=== PATIENT | female | born 2000 | race Caucasian/White ===

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

== ENCOUNTER 2022-02-08 17:21 | Inpatient (IN) ==
[2022-02-08] MEDS ORDERED: SODIUM CHLORIDE 0.9% 1000ML 2,000 ML IV ONE (17:54)
[2022-02-08] MEDS ORDERED: PROMETHAZINE 12.5 MG/50.5 ML BAG IV STA (17:54)
[2022-02-08] MEDS ORDERED: SODIUM CHLORIDE 0.9% 1000ML 1,000 ML IV STA (17:54)
--- NOTE | 2022-02-08 17:59 | Emergency Department Note ---
History of Present Illness General Chief complaint: Illness Stated complaint: dizzy, vomiting, feels overheated, weak Time Seen by Provider: 02/08/22 17:43 Source: patient and family (Boyfriend is at the bedside) Mode of arrival: ambulatory Limitations: no limitations History of Present Illness Maximum Pain Intensity: 8 This patient is a 21-year-old female comes in after throwing up since last night she is unable to hold anything down denies abdominal pain she says she started with a migraine which was typical for her no fever. She feels weak all over but no focal numbness weakness no chest pain or shortness of breath no vaginal bleed or discharge denies no dysuria hematuria. No chest pain or cough or shortness of breath. She says she has been here before for this and when I looked at her last visit she required multiple antiemetics and IV fluids. Home Medications Medication Instructions Recorded Confirmed Type venlafaxine 150 mg 150 mg PO HS 02/11/19 02/08/22 History capsule,extended release 24 hr lamotrigine 200 mg tablet 200 mg PO HS 03/04/21 02/08/22 History quetiapine 200 mg tablet 200 mg PO HS 07/17/21 02/08/22 History riboflavin (vitamin B2) 400 mg 400 mg PO DAILY #30 tab 07/26/21 02/08/22 Rx tablet ferrous sulfate 325 mg (65 mg 325 mg PO DAILY 08/05/21 02/08/22 History iron) tablet (Iron (ferrous sulfate)) ondansetron 4 mg disintegrating 4 mg PO Q6H PRN #10 tab 11/29/21 02/08/22 Rx tablet albuterol sulfate 90 mcg/actuation 2 puff INHALATION Q4H PRN #8.5 g 12/05/21 02/08/22 Rx aerosol inhaler etonogestrel 68 mg subdermal 68 mg SUBDERMAL CONTINOUS 02/08/22 02/08/22 History implant (Nexplanon) topiramate 25 mg tablet 50 mg PO DAILY 02/08/22 02/08/22 History venlafaxine 37.5 mg 37.5 mg PO HS 02/08/22 02/08/22 History capsule,extended release 24 hr Allergies Allergy/AdvReac Type Severity Reaction Status Date / Time bee venom protein (honey bee) Allergy Severe Anaphylaxis Verified 02/08/22 18:22 Past Med/Surg History Medical History Abdominal pain Anxiety Asthma Constipation Constipation Depression Eczema Hemangioma Iron deficiency anemia Leukocytosis Metabolic acidosis Microscopic hematuria Periapical abscess of tooth with fistula Vomiting Surgical History No significant past surgical history Family History Mother Cancer Anxiety disorder Father Anxiety disorder Social History Smoking Status: Never smoker Second Hand Exposure: No; Hx Alcohol Use: No Hx Substance Use: No Preferred Language: Luxembourgish Communication Ability: Effective Patient Flow Coordinator Required: No Beliefs That Will Affect Care: None marital status: Single Current Living Situation: Significant Other Feels Safe at Home: Yes Assistive Devices: None Review of Systems A total of 10 systems reviewed and were otherwise negative Physical Exam Vital Signs Vital Signs - 24 hr 02/08/22 17:23 02/08/22 17:58 02/08/22 20:00 Temperature 36.4 C L 37 C Temperature Source Oral Oral Pulse Rate 108 H Pulse Rate [Right Finger] 88 Pulse Rhythm [Right Finger] Regular Pulse Strength [Right Finger] Normal Respiratory Rate 20 20 18 Respiratory Effort / Characteristics Non-Labored Spontaneous Non-Labored Non-Labored Spontaneous Respiratory Depth Normal Normal Normal Respiratory Pattern Regular Regular Blood Pressure 118/80 Blood Pressure [Right Arm] 124/75 121/87 Blood Pressure Mean 92 Blood Pressure Mean [Right Arm] 91 98 Blood Pressure Position [Right Arm] Lying Pulse Oximetry 98 100 97 Oxygen Delivery Method Room Air Room Air Room Air Sepsis Recent Fever Within 48 Hours No Sepsis New/Unexplained Change in Mental Status N/A Sepsis Action Taken by Nursing No Action Required 02/08/22 22:00 Temperature Temperature Source Pulse Rate Pulse Rate [Right Finger] 110 H Pulse Rhythm [Right Finger] Regular Pulse Strength [Right Finger] Normal Respiratory Rate 18 Respiratory Effort / Characteristics Non-Labored Spontaneous Respiratory Depth Normal Respiratory Pattern Regular Blood Pressure Blood Pressure [Right Arm] 126/86 Blood Pressure Mean Blood Pressure Mean [Right Arm] 99 Blood Pressure Position [Right Arm] Lying Pulse Oximetry 98 Oxygen Delivery Method Room Air Sepsis Recent Fever Within 48 Hours Sepsis New/Unexplained Change in Mental Status Sepsis Action Taken by Nursing General: Well developed well nourished young female who is holding emesis bag she appears somewhat pale and is complained of feeling nauseated. In no acute distress, breathing comfortably on room air. Normal speech HEENT: Normal cephalic atraumatic. Pupils are equal round and reactive to light. Extraocular movements are intact. Oropharynx is pink with moist mucous membranes. No swelling of the mouth lips or tongue. Neck: Supple with a midline trachea. No meningeal signs or stiffness, no JVD or bruits. No Stridor. Chest: Clear to auscultation bilaterally. No wheezes or rhonchi. No increased work of breathing. Heart: Regular rate and rhythm without murmurs or gallops. Abdomen: Soft nontender, nondistended without rebound guarding or rigidity. Extremities: No cyanosis clubbing or edema. No calf tenderness or assymetry Spine/Back. Non tender to palpation. No CVA tenderness Skin: Good turgor without rashes. Neurologic exam: Cranial nerves two through 12 are intact. Motor and sensation are intact and symmetrical throughout. Course Administered Medications Potassium Chloride (K Eduardo / Wtr) 10 meq in 100 mls @ 100 mls/hr IV Q1H CECY Stop: 02/09/22 00:14 Last Admin: 02/08/22 22:15 Dose: 100 mls/hr Documented by: [id number] Discontinued Medications Sodium Chloride (Nss 1000ml) 1,000 mls @ 999 mls/hr IV .Q1H1M STA Stop: 02/08/22 18:54 Last Admin: 02/08/22 18:50 Dose: Not Given Documented by: [id number] Sodium Chloride (Nss 1000ml) 2,000 mls @ 999 mls/hr IV .Q2H1M ONE Stop: 02/08/22 19:54 Last Infusion: 02/08/22 20:17 Dose: 0 mls/hr Documented by: [id number] Admin: 02/08/22 18:01 Dose: 999 mls/hr Documented by: [id number] Promethazine HCl (Phenergan) 12.5 mg in 50.5 mls @ 202 mls/hr IV NOW STA Stop: 02/08/22 18:08 Last Infusion: 02/08/22 18:35 Dose: 0 mls/hr Documented by: [id number] Admin: 02/08/22 18:09 Dose: 202 mls/hr Documented by: [id number] Sodium Chloride (Nss 1000ml) 1,000 mls @ 999 mls/hr IV .Q1H1M ONE Stop: 02/08/22 21:24 Last Infusion: 02/08/22 22:06 Dose: 0 mls/hr Documented by: [id number] Admin: 02/08/22 20:30 Dose: 999 mls/hr Documented by: [id number] Ketorolac Tromethamine (Ketorolac Tromethamine 15 Mg/Ml Vial) 15 mg IV NOW STA Stop: 02/08/22 22:01 Last Admin: 02/08/22 22:14 Dose: 15 mg Documented by: [id number] Metoclopramide HCl (Metoclopramide Hcl Inj 5 Mg/Ml 2 Ml Vial) 10 mg IV NOW STA Stop: 02/08/22 20:25 Last Admin: 02/08/22 20:30 Dose: 10 mg Documented by: [id number] Ondansetron HCl (Ondansetron Inj 2 Mg/Ml 2 Ml Vial) 4 mg IV NOW STA Stop: 02/08/22 18:02 Last Admin: 02/08/22 18:08 Dose: 4 mg Documented by: [id number] Ondansetron HCl (Ondansetron Inj 2 Mg/Ml 2 Ml Vial) 4 mg IV NOW STA Stop: 02/08/22 18:57 Last Admin: 02/08/22 19:33 Dose: 4 mg Documented by: [id number] Medical Decision Making Differential Diagnosis Dehydration, electrolyte or metabolic abnormality, infection, , neurologic disease, anemia Medical Records Attestation: I reviewed the patient's medical records. Home Medications Current Medication List: was personally reviewed by me Laboratory Data Attestation: I reviewed the patient's lab results. Result diagrams: 02/08/22 18:00 02/08/22 18:00 Lab Results 02/08/22 02/08/22 02/08/22 Range/Units 18:00 18:00 18:00 WBC 12.75 H (4.8-10.8) K/uL RBC 5.40 (4.2-5.4) M/uL Hgb 13.7 (12.0-16.0) g/dL Hct 40.2 (37-47) % MCV 74.4 L (80-100) fL MCH 25.4 (25-34) pg MCHC 34.1 (32-36) g/dL RDW Std Deviation 37.7 (36.4-46.3) fL RDW Coeff of Indira 13.9 (11.5-14.5) % Plt Count 271 (130-400) K/uL MPV 9.3 (7.4-10.4) fL Immature Gran % (Auto) 0.2 % Neut % (Auto) 84.2 % Lymph % (Auto) 9.1 % [place] % (Auto) 6.3 % Eos % (Auto) 0.2 % Baso % (Auto) 0.0 % Neut # (Auto) 10.74 H (1.4-6.5) K/uL Lymph # (Auto) 1.16 L (1.2-3.4) K/uL [place] # (Auto) 0.80 H (0.11-0.59) K/uL Eos # (Auto) 0.02 (0-0.5) K/uL Baso # (Auto) 0.00 (0-0.2) K/uL Immature Gran # (Auto) 0.03 H (0.00-0.02) K/uL Microcytosis Present Sodium 139 (136-145) mmol/L Potassium 3.4 L (3.5-5.1) mmol/L Chloride 106 (98-107) mmol/L Carbon Dioxide 17 L (21-32) mmol/L Anion Gap 16 H (3-11) BUN 10 (6-23) mg/dl Creatinine 1.00 (0.6-1.2) mg/dl Est Cr Clr Drug Dosing 80.1 ml/min Est GFR ( Amer) 94.6 ml/min Est GFR (Non-Af Amer) 81.6 ml/min BUN/Creatinine Ratio 10.0 (10-20) Glucose 150 H (70-99(Fasting)) mg/dl Calcium 10.5 H (8.5-10.1) mg/dl Magnesium 2.1 (1.7-2.4) mg/dl Total Bilirubin 0.5 (0.2-1.0) mg/dl AST 13 (13-39) U/L ALT 13 (7-52) U/L Alkaline Phosphatase 92 (34-104) U/L Total Protein 8.4 H (6.0-8.3) gm/dl Albumin 5.0 (3.4-5.0) gm/dl Globulin 3.4 (2.5-4.0) gm/dl Albumin/Globulin Ratio 1.5 (0.9-2) Lipase 11 (11-82) U/L HCG, Qual (Negative) Urine Color Urine Appearance (Clear) Urine pH (4.5-7.5) Ur Specific [place] (1.000-1.030) Urine Protein (Negative) Urine Glucose (UA) (Negative) Urine Ketones (Negative) Urine Blood (Negative) Urine Nitrite (Negative) Urine Bilirubin (Negative) Urine Urobilinogen (Negative) Ur Leukocyte Esterase (Negative) Urine WBC (Auto) (0-5) /hpf Urine RBC (Auto) (0-4) /hpf U Hyaline Cast (Auto) (0-5) /lpf U Epithel Cells (Auto) (0-5) /lpf Urine Bacteria (Auto) (Negative) 02/08/22 02/08/22 Range/Units 18:28 21:05 WBC (4.8-10.8) K/uL RBC (4.2-5.4) M/uL Hgb (12.0-16.0) g/dL Hct (37-47) % MCV (80-100) fL MCH (25-34) pg MCHC (32-36) g/dL RDW Std Deviation (36.4-46.3) fL RDW Coeff of Indira (11.5-14.5) % Plt Count (130-400) K/uL MPV (7.4-10.4) fL Immature Gran % (Auto) % Neut % (Auto) % Lymph % (Auto) % [place] % (Auto) % Eos % (Auto) % Baso % (Auto) % Neut # (Auto) (1.4-6.5) K/uL Lymph # (Auto) (1.2-3.4) K/uL [place] # (Auto) (0.11-0.59) K/uL Eos # (Auto) (0-0.5) K/uL Baso # (Auto) (0-0.2) K/uL Immature Gran # (Auto) (0.00-0.02) K/uL Microcytosis Sodium (136-145) mmol/L Potassium (3.5-5.1) mmol/L Chloride (98-107) mmol/L Carbon Dioxide (21-32) mmol/L Anion Gap (3-11) BUN (6-23) mg/dl Creatinine (0.6-1.2) mg/dl Est Cr Clr Drug Dosing ml/min Est GFR ( Amer) ml/min Est GFR (Non-Af Amer) ml/min BUN/Creatinine Ratio (10-20) Glucose (70-99(Fasting)) mg/dl Calcium (8.5-10.1) mg/dl Magnesium (1.7-2.4) mg/dl Total Bilirubin (0.2-1.0) mg/dl AST (13-39) U/L ALT (7-52) U/L Alkaline Phosphatase (34-104) U/L Total Protein (6.0-8.3) gm/dl Albumin (3.4-5.0) gm/dl Globulin (2.5-4.0) gm/dl Albumin/Globulin Ratio (0.9-2) Lipase (11-82) U/L HCG, Qual Negative (Negative) Urine Color Yellow Urine Appearance Cloudy A (Clear) Urine pH 8.5 H (4.5-7.5) Ur Specific [place] 1.027 (1.000-1.030) Urine Protein Trace H (Negative) Urine Glucose (UA) Negative (Negative) Urine Ketones 4+ H (Negative) Urine Blood Trace H (Negative) Urine Nitrite Negative (Negative) Urine Bilirubin Negative (Negative) Urine Urobilinogen Negative (Negative) Ur Leukocyte Esterase Negative (Negative) Urine WBC (Auto) 1-5 (0-5) /hpf Urine RBC (Auto) 10-30 H (0-4) /hpf U Hyaline Cast (Auto) 1-5 (0-5) /lpf U Epithel Cells (Auto) >30 H (0-5) /lpf Urine Bacteria (Auto) Negative (Negative) MDM Narrative This patient comes in as described above. She was placed on a cold meat chef and a 4 she has had multiple vomiting episodes she is mildly tachyardiac and a ppears mildly pale. We establish an IV and was given 2 L IV normal saline. I reviewed her records and she did require multiple antiemetics last time I did order Phenergan 12.5 mg IV and also Zofran 4 mg IV. She was reassessed frequently. She was still having symptoms so I gave her another 4 mg Zofran IV while she was getting hydrated. White count is mildly elevated at 12 she has no significant anemia. Her CO2 is a little low at 17. Blood was my elevated at 150 but it is nonfasting. She has no other significant electrolyte or metabolic abnormalities. Her test was negative. Her potassium was mildly low low at 3.4 magnesium was normal. Despite multiple medications she still had vomiting. I did also order capsaicin as she did admit to smoking marijuana several times a day and there may be a hyperemesis cannabis component. She is dehydrated and cannot keep fluids down despite multiple IV medications and fluid boluses and I have consulted Dr. Hu to see her for admission/observation. Continuous cardiac monitoring: Orders placed in EMR for continuous cardiac monitoring. Upon my interpretation she was noted to be in normal sinus rhythm with a rate of 85 Impression & Plan Dehydration, Vomiting, Cannabinoid hyperemesis syndrome, Not currently Discharge Plan Visit Data Chief Complaint: Illness Stated Complaint: dizzy, vomiting, feels overheated, weak ED Provider: Tim Conde Discharge Problem: Dehydration, Vomiting, Cannabinoid hyperemesis syndrome, Not currently Forms Stand Alone Forms: My [facility] Prescriptions Prescriptions: No Action ferrous sulfate [Iron (ferrous sulfate)] 325 mg (65 mg iron) tablet 325 mg PO DAILY RF: 0 riboflavin (vitamin B2) 400 mg tablet 400 mg PO DAILY Qty: 30 RF: 11 albuterol sulfate 90 mcg/actuation HFA aerosol inhaler 2 puff inhalation Q4H PRN (Reason: cough) Qty: 8.5 RF: 0 venlafaxine 150 mg capsule,extended release 24hr 150 mg PO HS RF: 0 lamotrigine 200 mg tablet 200 mg PO HS RF: 0 quetiapine 200 mg tablet 200 mg PO HS RF: 0 ondansetron 4 mg tablet,disintegrating 4 mg PO Q6H PRN (Reason: nausea and vomiting) Qty: 10 RF: 0 venlafaxine 37.5 mg capsule,extended release 24hr 37.5 mg PO HS RF: 0 topiramate 25 mg tablet 50 mg PO DAILY RF: 0 Nexplanon 68 mg Implant 68 mg SUBDERMAL CONTINOUS RF: 0 Referrals Referrals: Devika Mayer CRNP [Primary Care Provider] -
[2022-02-08] MEDS ORDERED: ONDANSETRON INJ 2 MG/ML 2 ML VIAL IV STA ×2 (18:01→18:56)
[2022-02-08 18:13] LABS: Hematocrit (blood only) 40.2 % (37-47); Hemoglobin 13.7 g/dL (12.0-16.0); Mean Corpuscular Hemoglobin 25.4 pg (25-34); Mean Corpuscular Hgb Conc 34.1 g/dL (32-36); Mean Corpuscular Volume 74.4 fL (80-100); Mean Platelet Volume 9.3 fL (7.4-10.4); Platelet Count 271 K/uL (130-400); RDW Coefficient of Variation 13.9 % (11.5-14.5); RDW Standard Deviation 37.7 fL (36.4-46.3); White Blood Count 12.75 K/uL (4.8-10.8)
[2022-02-08 18:23] LABS: Albumin Globulin Ratio 1.5 (0.9-2); Bilirubin,Total 0.5 mg/dl (0.2-1.0); Calcium 10.5 mg/dl (8.5-10.1); Creatinine Clr Calc Pharmacy 80.1 ml/min; Est GFR (African American) 94.6 ml/min; Est GFR (Non-African American) 81.6 ml/min; Globulin 3.4 gm/dl (2.5-4.0); Potassium 3.4 mmol/L (3.5-5.1); Total Protein 8.4 gm/dl (6.0-8.3)
[2022-02-08 18:55] LABS: Eosinophils # (auto) 0.02 K/uL (0-0.5); Eosinophils % (auto) 0.2 %; Immature Granulocytes # (auto) 0.03 K/uL (0.00-0.02); Immature Granulocytes % (auto) 0.2 %; Lymphocytes # (auto) 1.16 K/uL (1.2-3.4); Lymphocytes % (auto) 9.1 %; Microcytosis Present; Monocytes % (auto) 6.3 %; Neutrophils # (auto) 10.74 K/uL (1.4-6.5); Neutrophils % (auto) 84.2 %
[2022-02-08 19:04] LABS: Pregnancy Test, Serum Negative (Negative)
[2022-02-08] MEDS ORDERED: SODIUM CHLORIDE 0.9% 1000ML 1,000 ML IV ONE (20:24)
[2022-02-08] MEDS ORDERED: METOCLOPRAMIDE HCL INJ 5 MG/ML 2 ML VIAL IV STA (20:24)
[2022-02-08] MEDS ORDERED: CAPSAICIN CR 0.075% 60 GM TUBE EXT STA (21:22)
[2022-02-08] MEDS ORDERED: POTASSIUM ACETATE/NSS 10 MEQ/105 ML BAG IV STA (21:45)
[2022-02-08 21:46] LABS: Appearance Urine Cloudy (Clear); Bacteria Urine Automated Negative (Negative); Bilirubin Urine Negative (Negative); Blood Urine Trace (Negative); Color Urine Yellow; Epithelial Cell Urine Auto >30 /lpf (0-5); Glucose Urine UA Negative (Negative); Ketones Urine 4+ (Negative); Leukocyte Esterase Urine Negative (Negative); Nitrite Urine Negative (Negative); Specific Gravity Urine 1.027 (1.000-1.030); Urobilinogen Urine Negative (Negative); pH Urine 8.5 (4.5-7.5)
[2022-02-08 21:52] LABS: Protein Urine Trace (Negative)
[2022-02-08] MEDS ORDERED: KETOROLAC TROMETHAMINE 15 MG/ML VIAL IV STA (22:00)
--- NOTE | 2022-02-08 22:01 | History & Physical Report ---
Date of Service February 08, 2022 Assessment & Plan (1) Vomiting: Plan: 21yo female with history of anxiety/depression and migraine presenting with nausea, vomiting and po intolerance x 1 day. Patient received several doses of anti-emetics in the ER with no improvement in symptoms. She does smoke marijuana daily - ddx to include cannabis hyperemesis syndrome, intestinal migraine/cyclic vomiting. Labs are significant for mildly elevated WBC count with neutrophil predominance, bands and lymphopenia Hypokalemia, CO2=17, AG=16, Ca=10.5 -Admit to medical -IVF and electrolyte repletion - K-rider 10mEq x 2 -Zofran PRN -Reglan PRN -Capsaicin cream to abdomen PRN For anion gap metabolic acidosis -Check VBG -Check lactate -Chemistry in AM (2) Facial infection: Plan: Reports recently being started on Amoxicillin for tooth abscess -Continue Amoxicillin 50omg po TID (3) Anxiety: Plan: Chronic. History of depression and anxiety -Continue Venlafaxine 187.5mg po daily -Continue Seroquel -Check EKG in AM -Continue Lamictal (4) Migraine without aura: Plan: Headache improved -Continue Topamax -Patient is on Venlafaxine for depression (5) Asthma: Plan: Chronic. No cough, SOB or wheeze -Continue Albuterol PRN Plan: F/E/N - LR at 80mL/hr x 2 liters + KCL, check ionized calcium and phosphorous, clear liquids advance to regular diet as tolerated Ppx - Low risk for DVT Code - Full Dispo - Observation to medical History of Present Illness Chief Complaint: NAUSEA, VOMITING Primary Care Provider: DARRICK Castañeda Abilio is a 21yo with history of anxiety/depression, anemia presenting with nausea, vomiting and PO intolerance. Patient developed a migraine 3 days ago which is very typical for her. Yesterday she developed severe nausea with multiple episodes of non-bloody/non-bilious vomiting and PO intolerance. She states that she feels weak and ill. Denies chest pain, cough, SOB. No abdominal pain or diarrhea. No additional complaints at this time. Patient does smoke marijuana daily - appx 2 gm per week. Had similar admission in November 2021 Upon arrival to the ER she is afebrile, HD stable, in moderate distress secondary to persistent nausea. ER Course: NSS x 3 liters, Zofran 4mg IV x 2, Phenergan 12.5mg IV, Reglan 10mg IV, Toradol 15mg IV Allergies Allergy/AdvReac Type Severity Reaction Status Date / Time bee venom protein (honey bee) Allergy Severe Anaphylaxis Verified 02/08/22 18:22 Home Medications Medication Instructions Recorded Confirmed Type venlafaxine 150 mg 150 mg PO HS 02/11/19 02/08/22 History capsule,extended release 24 hr lamotrigine 200 mg tablet 200 mg PO HS 03/04/21 02/08/22 History quetiapine 200 mg tablet 200 mg PO HS 07/17/21 02/08/22 History riboflavin (vitamin B2) 400 mg 400 mg PO DAILY #30 tab 07/26/21 02/08/22 Rx tablet ferrous sulfate 325 mg (65 mg 325 mg PO DAILY 08/05/21 02/08/22 History iron) tablet (Iron (ferrous sulfate)) ondansetron 4 mg disintegrating 4 mg PO Q6H PRN #10 tab 11/29/21 02/08/22 Rx tablet albuterol sulfate 90 mcg/actuation 2 puff INHALATION Q4H PRN #8.5 g 12/05/21 02/08/22 Rx aerosol inhaler etonogestrel 68 mg subdermal 68 mg SUBDERMAL CONTINOUS 02/08/22 02/08/22 History implant (Nexplanon) topiramate 25 mg tablet 50 mg PO DAILY 02/08/22 02/08/22 History venlafaxine 37.5 mg 37.5 mg PO HS 02/08/22 02/08/22 History capsule,extended release 24 hr Past Med/Surg History Medical History Abdominal pain Anxiety Asthma Constipation Constipation Depression Eczema Hemangioma Iron deficiency anemia Leukocytosis Metabolic acidosis Microscopic hematuria Periapical abscess of tooth with fistula Vomiting Surgical History No significant past surgical history Family History Mother Cancer Anxiety disorder Father Anxiety disorder Social History Smoking Status: Never smoker Second Hand Exposure: No; Hx Alcohol Use: No Hx Substance Use: No Preferred Language: Cambodian Communication Ability: Effective Pipe Line Inspector Required: No Beliefs That Will Affect Care: None marital status: Single Current Living Situation: Significant Other Feels Safe at Home: Yes Assistive Devices: None Review of Systems Review of Systems: All systems reviewed & are unremarkable except as noted in HPI & below Physical Exam Physical Exam: General: patient in moderate distress secondary to ongoing nausea and vomiting Skin: warm, dry, intact, no rashes or lesions HEENT: NC/AT, PERRL, EOMI, anicteric sclera, conjunctiva without injection, external ear normal to inspection and nontender, nares patent, moist mucus membranes, dentition intact, no oropharyngeal lesions, neck supple, trachea midline, no LAD, no thyromegaly, no JVD Heart: +S1/S2, regular, no m/r/g Lungs: equal air entry bilaterally, no rales/rhonchi/wheezes Abd: +BS, soft, NT/ND, no masses/organomegaly/ascites Ext: warm, 2+ pulses in UE/LE bilaterally, no clubbing/cyanosis or edema Neuro: nonfocal, patient AA&O x 4, speech intact, no facial droop, moving all extremities on command with equal strength 5/5 Results & Data Results & Data ([facility]) Vital Signs (Past 12 Hours) Vital Signs Temp Pulse Pulse Resp BP BP Pulse Ox 02/08/22 20:00 37 C 88 18 121/87 97 02/08/22 17:58 20 124/75 100 02/08/22 17:23 36.4 C L 108 H 20 118/80 98 Laboratory Results Laboratory Results WBC 12.75 K/uL (4.8-10.8) H 02/08/22 18:00 RBC 5.40 M/uL (4.2-5.4) 02/08/22 18:00 Hgb 13.7 g/dL (12.0-16.0) 02/08/22 18:00 Hct 40.2 % (37-47) 02/08/22 18:00 MCV 74.4 fL (80-100) L 02/08/22 18:00 MCH 25.4 pg (25-34) 02/08/22 18:00 MCHC 34.1 g/dL (32-36) 02/08/22 18:00 RDW Std Deviation 37.7 fL (36.4-46.3) 02/08/22 18:00 RDW Coeff of Indira 13.9 % (11.5-14.5) 02/08/22 18:00 Plt Count 271 K/uL (130-400) 02/08/22 18:00 MPV 9.3 fL (7.4-10.4) 02/08/22 18:00 Immature Gran % (Auto) 0.2 % 02/08/22 18:00 Neut % (Auto) 84.2 % 02/08/22 18:00 Lymph % (Auto) 9.1 % 02/08/22 18:00 [place] % (Auto) 6.3 % 02/08/22 18:00 Eos % (Auto) 0.2 % 02/08/22 18:00 Baso % (Auto) 0.0 % 02/08/22 18:00 Neut # (Auto) 10.74 K/uL (1.4-6.5) H 02/08/22 18:00 Lymph # (Auto) 1.16 K/uL (1.2-3.4) L 02/08/22 18:00 [place] # (Auto) 0.80 K/uL (0.11-0.59) H 02/08/22 18:00 Eos # (Auto) 0.02 K/uL (0-0.5) 02/08/22 18:00 Baso # (Auto) 0.00 K/uL (0-0.2) 02/08/22 18:00 Immature Gran # (Auto) 0.03 K/uL (0.00-0.02) H 02/08/22 18:00 Microcytosis Present 02/08/22 18:00 Sodium 139 mmol/L (136-145) 02/08/22 18:00 Potassium 3.4 mmol/L (3.5-5.1) L 02/08/22 18:00 Chloride 106 mmol/L (98-107) 02/08/22 18:00 Carbon Dioxide 17 mmol/L (21-32) L 02/08/22 18:00 Anion Gap 16 (3-11) H 02/08/22 18:00 BUN 10 mg/dl (6-23) 02/08/22 18:00 Creatinine 1.00 mg/dl (0.6-1.2) 02/08/22 18:00 Est Cr Clr Drug Dosing 80.1 ml/min 02/08/22 18:00 Est GFR ( Amer) 94.6 ml/min 02/08/22 18:00 Est GFR (Non-Af Amer) 81.6 ml/min 02/08/22 18:00 BUN/Creatinine Ratio 10.0 (10-20) 02/08/22 18:00 Glucose 150 mg/dl (70-99(Fasting)) H 02/08/22 18:00 Calcium 10.5 mg/dl (8.5-10.1) H 02/08/22 18:00 Magnesium 2.1 mg/dl (1.7-2.4) 02/08/22 18:00 Total Bilirubin 0.5 mg/dl (0.2-1.0) 02/08/22 18:00 AST 13 U/L (13-39) 02/08/22 18:00 ALT 13 U/L (7-52) 02/08/22 18:00 Alkaline Phosphatase 92 U/L (34-104) 02/08/22 18:00 Total Protein 8.4 gm/dl (6.0-8.3) H 02/08/22 18:00 Albumin 5.0 gm/dl (3.4-5.0) 02/08/22 18:00 Globulin 3.4 gm/dl (2.5-4.0) 02/08/22 18:00 Albumin/Globulin Ratio 1.5 (0.9-2) 02/08/22 18:00 Lipase 11 U/L (11-82) 02/08/22 18:00 HCG, Qual Negative (Negative) 02/08/22 18:28 Urine Color Yellow 02/08/22 21:05 Urine Appearance Cloudy (Clear) A 02/08/22 21:05 Urine pH 8.5 (4.5-7.5) H 02/08/22 21:05 Ur Specific [place] 1.027 (1.000-1.030) 02/08/22 21:05 Urine Protein Trace (Negative) H 02/08/22 21:05 Urine Glucose (UA) Negative (Negative) 02/08/22 21:05 Urine Ketones 4+ (Negative) H 02/08/22 21:05 Urine Blood Trace (Negative) H 02/08/22 21:05 Urine Nitrite Negative (Negative) 02/08/22 21:05 Urine Bilirubin Negative (Negative) 02/08/22 21:05 Urine Urobilinogen Negative (Negative) 02/08/22 21:05 Ur Leukocyte Esterase Negative (Negative) 02/08/22 21:05 Urine WBC (Auto) 1-5 /hpf (0-5) 02/08/22 21:05 Urine RBC (Auto) 10-30 /hpf (0-4) H 02/08/22 21:05 U Hyaline Cast (Auto) 1-5 /lpf (0-5) 02/08/22 21:05 U Epithel Cells (Auto) >30 /lpf (0-5) H 02/08/22 21:05 Urine Bacteria (Auto) Negative (Negative) 02/08/22 21:05 PG Care Time/CCT Total # of Minutes Spent Total Time Spent with Patient: Total time spent is greater than 50% in coordination of care (as documented) at patient's floor/unit and/or counseling patient: Coding Level of Care Code INT OBSERVATION CARE 50M LVL 2 Diagnoses Vomiting R11.10 Facial infection L08.9 Anxiety F41.9 Migraine without aura G43.009 Asthma J45.909
[2022-02-08] MEDS: POTASSIUM CHLORIDE / WTR 10 MEQ/100 ML PLCT IV SCH ×2 (22:15→23:20)
[2022-02-09] MEDS ORDERED: METOCLOPRAMIDE HCL INJ 5 MG/ML 2 ML VIAL IV PRN (00:32)
[2022-02-09] MEDS ORDERED: CAPSAICIN CR 0.075% 60 GM TUBE EXT PRN (00:32)
[2022-02-09] MEDS ORDERED: ONDANSETRON INJ 2 MG/ML 2 ML VIAL IV PRN (00:32)
[2022-02-09] MEDS ORDERED: LACTATED RINGER'S 1,000 ML IV SCH (00:32)
[2022-02-09] MEDS ORDERED: ALBUTEROL HFA 8 GM INHALER INH PRN (00:32)
[2022-02-09] MEDS ORDERED: ETONOGESTREL 68 MG IMPLANT SQ SCH (00:40)
[2022-02-09 01:02] LABS: Base Excess VBG -4.9 mEq/L; Oxygen Saturation VBG 78.2 %; pH VBG 7.51 (7.36-7.41)
[2022-02-09] MEDS: lamoTRIgine 100 MG TAB PO SCH ×2 (01:23→20:54)
[2022-02-09] MEDS: QUEtiapine FUMARATE 200 MG TAB PO SCH ×2 (01:24→20:55)
[2022-02-09] MEDS: VENLAFAXINE HCL XR 150 MG CAPXR PO SCH ×2 (01:24→20:55)
[2022-02-09] MEDS: VENLAFAXINE HCL XR 37.5 MG CAPXR PO SCH ×2 (01:24→20:55)
[2022-02-09] MEDS ORDERED: POTASSIUM PHOS 3 MMOL/1 ML INFUSION IV STA ×2 (01:52→01:53)
[2022-02-09] MEDS ORDERED: SODIUM CHLORIDE 0.9% 1000ML 1,000 ML IV ONE (01:52)
[2022-02-09] MEDS ORDERED: POTASSIUM PHOSPHATE 21 MMOL in SODIUM CHLORIDE 0.9% 500 ML IV ONE (02:15)
[2022-02-09] MEDS ORDERED: ONDANSETRON INJ 2 MG/ML 2 ML VIAL IV STA (02:33)
[2022-02-09] MEDS: ACETAMINOPHEN 325 MG TAB PO PRN ×3 (06:23→20:59)
[2022-02-09 06:52] LABS: Hematocrit (blood only) 33.2 % (37-47); Immature Granulocytes # (auto) 0.04 K/uL (0.00-0.02); Immature Granulocytes % (auto) 0.5 %; Lymphocytes % (auto) 7.1 %; Mean Corpuscular Hemoglobin 24.6 pg (25-34); Mean Corpuscular Hgb Conc 33.1 g/dL (32-36); Mean Corpuscular Volume 74.3 fL (80-100); Mean Platelet Volume 9.1 fL (7.4-10.4); Monocytes # (auto) 0.46 K/uL (0.11-0.59); Monocytes % (auto) 5.4 %; Neutrophils # (auto) 7.38 K/uL (1.4-6.5); Platelet Count 221 K/uL (130-400); RDW Coefficient of Variation 14.3 % (11.5-14.5); RDW Standard Deviation 38.5 fL (36.4-46.3); Red Blood Count 4.47 M/uL (4.2-5.4); White Blood Count 8.48 K/uL (4.8-10.8)
[2022-02-09 07:16] LABS: RBC Morphology Unremarkable
[2022-02-09 07:44] LABS: BUN Creatinine Ratio 6.1 (10-20); Calcium 8.8 mg/dl (8.5-10.1); Creatinine Clr Calc Pharmacy 124.6 ml/min; Est GFR (African American) 148.4 ml/min; Est GFR (Non-African American) 128.1 ml/min; Potassium 3.6 mmol/L (3.5-5.1)
[2022-02-09] MEDS ORDERED: diphenhydrAMINE 50 MG/ML VIAL IV STA (07:55)
[2022-02-09] MEDS ORDERED: MAGNESIUM SULFATE / D5W 1 GM/100 ML BAG IV ONE (07:55)
[2022-02-09] MEDS ORDERED: LACTATED RINGER'S 1,000 ML IV ONE (07:55)
[2022-02-09] MEDS ORDERED: KETOROLAC TROMETHAMINE 15 MG/ML VIAL IV ONE ×2 (07:55→17:21)
[2022-02-09] MEDS: TOPIRAMATE 50 MG TAB PO SCH (08:29)
[2022-02-09 08:47] LABS: Pregnancy Test, Serum Negative (Negative)
[2022-02-09] MEDS ORDERED: AMOXICILLIN 500 MG CAP PO SCH (09:00)
--- NOTE | 2022-02-09 09:00 | Electrocardiogram Report ---
Test Reason : Blood Pressure : / mmHG Vent. Rate : 136 BPM Atrial Rate : 136 BPM P-R Int : 138 ms QRS Dur : 076 ms QT Int : 294 ms P-R-T Axes : 083 092 076 degrees QTc Int : 442 ms Sinus tachycardia Rightward axis Nonspecific ST and T wave abnormality Abnormal ECG When compared with ECG of 29-NOV-2021 11:06, Vent. rate has increased BY 51 BPM Confirmed by Mateo Lim ([id number] on 02/09/2022 9:00:14 AM Referred By: REFERRED SELF Confirmed By:Mateo Lim
[2022-02-09] MEDS ORDERED: OPTIRAY 320 100ml IV ONE (09:25)
--- NOTE | 2022-02-09 09:34 | CT Scan Report ---
CT SCAN OF THE FACIAL BONES WITH IV CONTRAST CLINICAL HISTORY: Dental infection. COMPARISON STUDY: CT of the facial bones dated 03/05/2021 TECHNIQUE: High-resolution CT scan of the facial bones is performed following the IV administration of 94 cc of Optiray 320. Images are reviewed in the axial, sagittal, and coronal planes. IV contrast was administered without complication. A dose lowering technique was utilized adhering to the princi ples of VALER[place]. CT DOSE: 153.66 mGy.cm FINDINGS: The skeletal structures are well mineralized. There is no evidence of facial bone fracture. The bony orbits are intact and the orbital contents are within normal limits. The zygomatic arches, nasal bones, and pterygoid plates are preserved. The maxilla and mandible are intact. There are no la yering blood products within the paranasal sinuses. Retention cysts in the left maxillary antrum verena ure up to 1.8 cm. A retention cyst in the left sphenoid sinus measures 2.5 cm. The remaining paranasa l sinuses are clear. The mastoid air cells are well pneumatized. The visualized calvarium and upper c ervical spine are maintained. Partially imaged brain parenchyma is within normal limits. There are nu merous dental caries. There is a large periapical lucency identified involving the right mandibular i ncisors seen on axial image #203. A large periapical lucency is also seen involving the left central and lateral incisors of the maxilla with overlying cortical breakthrough on axial image #142. A thin crescentic fluid collection overlies the right anterior aspect of the mandible as seen on image #204. This measures 10 x 3 x 16 mm and is typical for a subperiosteal abscess. Overlying soft tissue infla mmation indicates cellulitis. There are numerous mildly enlarged cervical lymph nodes which measure u p to 1.6 cm in length. The carotid arteries and jugular veins are patent. IMPRESSION: 1. There are numerous dental caries. 2. There is a large periapical lucency involving the right mandibular incisors with overlying celluli tis and a thin crescentic 16 mm subperiosteal abscess. 3. Large periapical lucencies are also seen involving the left maxillary incisors with overlying rafi ical breakthrough. 4. Follow-up with dentistry is recommended. 5. Numerous mildly enlarged cervical chain lymph nodes are similar to previous and may be reactive. C linical correlation will be required. ACT 112: Negative or not required by law. Electronically signed by: Shadi Merrill M.D. 02/09/2022 9:31 AM
[2022-02-09 09:45] LABS: Adenovirus PCR Not Detected (NotDetected); Bordetella parapertussis PCR Not Detected (NotDetected); Bordetella pertussis PCR Not Detected (NotDetected); Chlamydia pneumoniae PCR Not Detected (NotDetected); Coronavirus 229E PCR Not Detected (NotDetected); Coronavirus CoV-2 (COVID19)PCR Not Detected (NotDetected); Coronavirus HKU1 PCR Not Detected (NotDetected); Coronavirus NL63 PCR Not Detected (NotDetected); Coronavirus OC43PCR Not Detected (NotDetected); Human Metapneumovirus PCR Not Detected (NotDetected); Influenza A PCR Not Detected (NotDetected); Influenza B PCR Not Detected (NotDetected); Mycoplasma pneumoniae PCR Not Detected (NotDetected); Parainfluenza Virus 1 PCR Not Detected (NotDetected); Parainfluenza Virus 2 PCR Not Detected (NotDetected); Parainfluenza Virus 3 PCR Not Detected (NotDetected); Parainfluenza Virus 4 PCR Not Detected (NotDetected); Respiratory Syncytial VirusPCR Not Detected (NotDetected); Rhinovirus/Enterovirus PCR Not Detected (NotDetected)
[2022-02-09] MEDS: LACTATED RINGER'S 1,000 ML IV SCH ×2 (09:55→19:16)
[2022-02-09] MEDS: AMPICILLIN/SULBACTAM SOD 3,000 MG in 0.9 % SODIUM CHLORIDE 100 ML IV SCH ×3 (10:53→20:55)
--- NOTE | 2022-02-09 10:54 | Hospitalist Progress Note ---
Date of Service February 09, 2022 Assessment & Plan (1) Dental abscess: Plan: 21-year-old white female with known dental caries presented with intractable nausea and vomiting and subjective fevers/chills. Initially thought to have abdominal migraine , cannabinoid hyperemesis syndrome or migraine induced nausea/vomiting; however, she has since developed clinical evidence consistent with sepsis syndrome. She has known dental caries and a CT scan was performed confirming a dental abscess Patient with fever, tachycardia, leukocytosis with left shift metabolic acidos is & lactic acidemia CT scan of the face shows: Numerous dental caries. Large periapical lucency i nvolving the right mandibular incisors with overlying cellulitis and a thin Hiram centric 16mm supreme subperiosteal abscess. 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 Transition to Unasyn for more gram-negative/anaerobic coverage Consult oromaxillary surgeonDr. Clay. Spoke to him and he will see her tomorrow (2) Sepsis syndrome: Plan: Patient now with tachycardia (136), leukocytosis with left shift (12.75), fever (100.74 F), lactic acidemia (2.8) and associated metabolic acidosis with compensation Likely a result of facial cellulitis/dental abscess Transition amoxicillin (which she was taking HARMONIC ANALYST) to Unasyn Patient receiving gentle IV hydration. We will increase this for aggressive fluid rate management. She is not hypotensive Consult Dr. Clay as outlined above Continue to utilize antipyretics as needed Continue to follow clinically (3) Headache: Plan: Likely secondary to dental absess Resolved following IV Benadryl, IV magnesium sulfate, IV Tylenol, and aggressive IV hydration Patient is a chronic migraine suffer and takes Topamax. Continue this (4) Vomiting: Plan: Likely secondary to dental abscess and associated sepsis syndrome Utilize antiemetics as needed (5) Asthma: Plan: Controlled/stable Utilizes ProAir as needed. Continue this if needed (6) Depression: Plan: Continue Seroquel and venlafaxine as prior to hospitalization Plan: Case briefly discussed with Dr. Clay Plan of care will be discussed with Dr. Baca. Further orders as warranted Will initiate heparin for DVT prophylaxis Admission and Anticipated Discharge Date Admission Date: February 09, 2022 Subjective Patient seen on daily rounds today. Presented to the emergency department yesterday with a migraine ongoing X 1 week. Had associated nausea and vomiting. Admitted for intractable nausea and vomiting thought to potentially be related to an abdominal migraine versus cannabis hyperemesis syndrome. This morning, she is tachycardic and has a temperature of 100.7. She admits that she has had subjective fevers and chills over the past 9 days and her appetite has been poor. Overall she has just felt ill. She does get chronic migraines and was recently put on Topamax but reports that her migraines have been more frequent. 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 Was started on amoxicillin for a "dental infection". Given her tachycardia, fever, and dental painI sent her for a CT scan of the face this morning that does show a dental abscess. She had a severe headache this morning that was treated with IV Benadryl, IV magnesium sulfate, and IV fluid bolus, and IV Toradol. Her headache has since resolved. She denies nuchal rigidity or neck pain. Review of Systems Review of Systems: All systems reviewed and are unremarkable except as noted in HPI and below Denies nasal congestion, sore throat, cough, chest pain, shortness of breath, palpitations, orthopnea, PND, abdominal pain, diarrhea, constipation, dysuria, hematuria, frequency, back pain, joint pain or swelling, easy bruising or bleeding, skin lesions or rashes. Physical Exam Physical Exam: General: Resting comfortably in her hospital bed. Appears mildly ill but not toxic. NAD. HEENT: Head is AT/NC. Mild edema and erythema of the right perioral region. Swelling of the bottom lip (more prominent on the right). Significant dental ca meli on the bottom right. No nuchal rigidity. Negative Kernig's/Brudzinski sign Neck: No JVD. Negative hepatojugular reflex. + Anterior cervical chain and right sided submandibular lymphadenopathy Cardiac: RRR without M/G/R Lungs: CTA without W/R/R Abdomen: Normoactive X4. Soft and nontender in all quadrants. Extremities: No peripheral clubbing cyanosis or edema Neuro: A&O X4. Cranial nerves II through XII are grossly intact. No focal neuro deficits Skin: No obvious skin lesions or rashes Psych: Appropriate affect. Pleasant and cooperative Results & Data Results & Data ([facility]) Vital Signs (Past 12 Hours) Vital Signs Temp Pulse Pulse Pulse Resp BP BP 02/09/22 09:56 120 H 02/09/22 07:45 136 H 02/09/22 07:33 38.2 C H 140 H 18 117/74 02/09/22 00:00 36.8 C 106 H 18 02/08/22 23:45 103 H 20 129/89 02/08/22 23:19 110 H 18 BP Pulse Ox 02/09/22 09:56 97 02/09/22 07:45 02/09/22 07:33 97 02/09/22 00:00 137/92 100 02/08/22 23:45 100 02/08/22 23:19 127/83 100 Laboratory Results 02/09/22 06:21 02/09/22 06:21 PG Care Time/CCT Total # of Minutes Spent Total Time Spent with Patient: Total time spent is greater than 50% in coordination of care (as documented) at patient's floor/unit and/or counseling patient: Coding Level of Care Code 64200 Subseq Hosp Care Lvl 3 Diagnoses Dental abscess K04.7 Headache R51.9 Sepsis syndrome Vomiting R11.2 Nausea presence: with nausea Vomiting type: unspecified Asthma J45.909 Depression F32.9 (1) Vomiting Nausea presence: with nausea Vomiting type: unspecified Qualified Code(s): R11.2 - Nausea with vomiting, unspecified
[2022-02-09 11:23] LABS: C Reactive Protein 11.29 mg/dl (0-0.5); Phosphorus 2.8 mg/dl (2.5-4.9)
--- NOTE | 2022-02-09 14:37 | Oral/Maxillofacial Consult ---
Date of Consultation February 09, 2022 Assessment & Plan (1) Dental abscess: (2) Sepsis syndrome: History of Present Illness Attending Physician: Edilson Baca MD History of Present Illness Oral Maxillofacial Surgery Exam--- Present Complaint: Patient presented to the ED with pain, dehydration, fever and tachycardia. Facial CT scan showed carious lesions with bone involvement as possible etiology of presenting symptoms. Bone abscess right lower anterior tooth # 26 I saw Jackelyn in March 2021 for facial swelling upper left --my notes are as follows: Swelling is gone and the tissue is healing well Slight drainage is noted above # 10 area Infection has responded very well to the antibiotics and the conservative treatment I suggested that the patient continue with massage, heat and wound care. I suggested that she make an appointment with Dr Dashawn SALMERON for endo # 10 vs referral to associate pastor May need apico or as last resort extraction --implant At this time the area responded well to antibiotic treatment--understanding was expressed that definitive treatment ie root canal is needed PRESENT ISSUES: (1) Dental abscess: # 26 area with swelling anterior and right submandibular Plan: 21-year-old white female with known dental caries presented with intractable nausea and vomiting and subjective fevers/chills. Initially thought to have abdominal migraine , cannabinoid hyperemesis syndrome or migraine induced nausea/vomiting; however, she has since developed clinical evidence consistent with sepsis syndrome. She has known dental caries and a CT scan was performed confirming a dental abscess Patient with fever, tachycardia, leukocytosis with left shift metabolic acidosis & lactic acidemia CT scan of the face shows: Numerous dental caries. Large periapical lucency involving the right mandibular incisors with overlying cellulitis and a thin centric 16mm supreme subperiosteal abscess. 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 Transition to Unasyn for more gram-negative/anaerobic coverage Consult oromaxillary surgeonDr. Clay. Spoke to him and he will see her tomorrow (2) Sepsis syndrome: Plan: Patient now with tachycardia (136), leukocytosis with left shift (12.75), fever (100.74 F), lactic acidemia (2.8) and associated metabolic acidosis with compensation Likely a result of facial cellulitis/dental abscess Transition amoxicillin (which she was taking HAMMERER HELPER) to Unasyn Patient receiving gentle IV hydration. We will increase this for aggressive fluid rate management. She is not hypotensive Consult Dr. Clay as outlined above Continue to utilize antipyretics as needed Continue to follow clinically (3) Headache: Plan: Likely secondary to dental absess Resolved following IV Benadryl, IV magnesium sulfate, IV Tylenol, and aggressive IV hydration Patient is a chronic migraine suffer and takes Topamax. Continue this (4) Vomiting: Plan: Likely secondary to dental abscess and associated sepsis syndrome Utilize antiemetics as needed (5) Asthma: Plan: Controlled/stable Utilizes ProAir as needed. Continue this if needed (6) Depression: Plan: Continue Seroquel and venlafaxine as prior to hospitalization Oral Exam: Finding-- swelling right lower anterior area looks to be associated with # 26 Swelling right side of her face not ideal dental care Not able to find a dentist who takes her parents insurance Many carious teeth and early peridental issues Imaging: Service Date:02/09/22 CT SCAN OF THE FACIAL BONES WITH IV CONTRAST CLINICAL HISTORY: Dental infection. COMPARISON STUDY: CT of the facial bones dated 03/05/2021 FINDINGS: The skeletal structures are well mineralized. There is no evidence of facial bone fracture. The bony orbits are intact and the orbital contents are within normal limits. The zygomatic arches, nasal bones, and pterygoid plates are preserved. The maxilla and mandible are intact. There are no layering blood products within the paranasal sinuses. Retention cysts in the left maxillary antrum measure up to 1.8 cm. A retention cyst in the left sphenoid sinus measures 2.5 cm. The remaining paranasal sinuses are clear. The mastoid air cells are well pneumatized. The visualized calvarium and upper cervical spine are maintained. Partially imaged brain parenchyma is within normal limits. There are numerous dental caries. There is a large periapical lucency identified involving the right mandibular incisors seen on axial image #203. A large periapical lucency is also seen involving the left central and lateral incisors of the maxilla with overlying cortical breakthrough on axial image #142. A thin crescentic fluid collection overlies the right anterior aspect of the mandible as seen on image #204. This measures 10 x 3 x 16 mm and is typical for a subperiosteal abscess. Overlying soft tissue inflammation indicates cellulitis. enlarged cervical lymph nodes which measure up to 1.6 cm in length. The carotid arteries and jugular veins are patent. CT March 05 2021 HISTORY: Left facial swelling. TECHNIQUE: Multiaxial CT images of the maxillofacial region was performed following the intravenous administration of 94 cc of Optiray 320. COMPARISON STUDY: None. FINDINGS: There is a 5 mm periapical lucency at ADA 9 which appears to demonstrate minimal cortical breakthrough along the buccal surface. There is an adjacent 7 mm abscess abutting the left anterior maxilla at this location. This is best seen image 121. There is significant soft tissue swelling/fat stranding at this location and along the left side of the face scattered dental caries are noted. There is also an 8 mm periapical lucency at ADA 26. No associated cortical breakthrough or adjacent soft tissue abscess. The orbits unremarkable. Near complete opacification of the left sphenoid sinus. There are retention cyst within the floor the left maxillary sinus. The mastoid air cells are clear. The parotid and submandibular glands are symmetric. The epiglottis is normal in thickness. There is bilateral submandibular upper cervical lymphadenopathy, left greater than right. Dominant left jugular digastric lymph node measures 1.6 cm in short axis diameter.. IMPRESSION: 1. A 5 mm periapical lucency at ADA 9 with an associated 7 mm soft tissue abscess abutting the buccal surface of the mandible at this location. This likely accounts for the extensive soft tissue swelling within the left side of the face. 2. Additional periodontal disease as described above. 3. Upper cervical and submandibular lymphadenopathy. This nonspecific but could be reactive to the dental abscess. Soft tissue: swelling mucobuccal fold. Submandibular and side of the face swelling. floor of the mouth, tongue, hard/soft palate, posterior pharyngeal area all with in normal limits, no pathology or abnormal findings noted. Oral Care: Overall oral care is fair Occlusion: Class I TMJ exam: No pop, clicking, pain, good ROM, No history of TMJ injury or dysfunction Periodontal exam: There is evidence of periodontal pathology. Head/Neck exam: Neck is supple, FROM, Able to extend and flex neck w/o difficulty, no masses, no abnormalities, no airway issues, no evidence of sleep apnea. Treatment Plan: I reviewed the treatment plan and consent with the patient = I&D and extraction of # 26 Excision of the large periapical bone infection and lesion under # 26 Understanding was expressed. Time was given for questions regarding the surgery, risks and post op care. Discussed alternative to treatment--procedure as planned, Do not do surgery Risks discussed: Bleeding,Pain,swelling,infection, dry socket, delayed healing, nerve injury to face,lips,tongue,chin area which could be permanent (rare). TMJ, jaw stiffness, change in bite (rare), ear pain (referred). Sinus problems like fistula or infection. Need to leave a small root fragment in place to avoid injury to nerve or sinus. Need for tooth replacement # 26 and need for extensive dental work Home care reviewed: tooth brushing, rinsing, follow up care with Dr Clay. diet=[id number] dental. Discussed activity level, driving/work while on Rx pain Meds. follow up with Dr Clay need to establish routine dental care Allergies Allergy/AdvReac Type Severity Reaction Status Date / Time bee venom protein (honey bee) Allergy Severe Anaphylaxis Verified 02/08/22 18:22 Home Medications Medication Instructions Recorded Confirmed Type venlafaxine 150 mg 150 mg PO HS 02/11/19 02/08/22 History capsule,extended release 24 hr lamotrigine 200 mg tablet 200 mg PO HS 03/04/21 02/08/22 History quetiapine 200 mg tablet 200 mg PO HS 07/17/21 02/08/22 History riboflavin (vitamin B2) 400 mg 400 mg PO DAILY #30 tab 07/26/21 02/08/22 Rx tablet ferrous sulfate 325 mg (65 mg 325 mg PO DAILY 08/05/21 02/08/22 History iron) tablet (Iron (ferrous sulfate)) ondansetron 4 mg disintegrating 4 mg PO Q6H PRN #10 tab 11/29/21 02/08/22 Rx tablet albuterol sulfate 90 mcg/actuation 2 puff INHALATION Q4H PRN #8.5 g 12/05/21 02/08/22 Rx aerosol inhaler etonogestrel 68 mg subdermal 68 mg SUBDERMAL CONTINOUS 02/08/22 02/08/22 History implant (Nexplanon) topiramate 25 mg tablet 50 mg PO DAILY 02/08/22 02/08/22 History venlafaxine 37.5 mg 37.5 mg PO HS 02/08/22 02/08/22 History capsule,extended release 24 hr Patient History Medical History Abdominal pain Anxiety Asthma Constipation Constipation Depression Eczema Hemangioma Iron deficiency anemia Leukocytosis Metabolic acidosis Microscopic hematuria Periapical abscess of tooth with fistula Vomiting Surgical History No significant past surgical history Family History Mother Cancer Anxiety disorder Father Anxiety disorder Social History Smoking Status: Never smoker Second Hand Exposure: No; Hx Alcohol Use: Yes Alcohol type: wine Hx Substance Use: Yes Last Used Substance: Days (ago) Preferred Language: Egyptian Communication Ability: Effective Legislative Correspondent Required: No Beliefs That Will Affect Care: None marital status: Single Current Living Situation: Significant Other Feels Safe at Home: Yes Safety Concerns: Feels Safe At This Time Assistive Devices: Glasses Results & Data ([facility]) Vital Signs (Past 12 Hours) Vital Signs Temp Pulse Pulse Resp BP Pulse Ox 02/09/22 14:00 112 H 16 114/77 98 02/09/22 10:58 116 H 98 02/09/22 09:56 37.0 C 120 H 97 02/09/22 07:45 136 H 02/09/22 07:33 38.2 C H 140 H 18 117/74 97 PG Care Time/CCT Total # of Minutes Spent Total Time Spent with Patient: Total time spent is greater than 50% in coordination of care (as documented) at patient's floor/unit and/or counseling patient: Coding Level of Care Code 95343 Inpt Consult Level 2 Diagnoses Dental abscess K04.7 Sepsis syndrome
[2022-02-09] MEDS: HEPARIN SOD 5,000 UNIT/0.5 ML VIAL SQ SCH (20:53)
[2022-02-10] MEDS: ACETAMINOPHEN 325 MG TAB PO PRN ×3 (01:36→09:49)
[2022-02-10] MEDS: AMPICILLIN/SULBACTAM SOD 3,000 MG in 0.9 % SODIUM CHLORIDE 100 ML IV SCH ×2 (03:00→08:27)
[2022-02-10] MEDS: LACTATED RINGER'S 1,000 ML IV SCH ×2 (03:00→10:12)
[2022-02-10 06:09] LABS: Basophils # (auto) 0.01 K/uL (0-0.2); Basophils % (auto) 0.1 %; Eosinophils # (auto) 0.02 K/uL (0-0.5); Eosinophils % (auto) 0.3 %; Hematocrit (blood only) 32.3 % (37-47); Hemoglobin 10.7 g/dL (12.0-16.0); Immature Granulocytes # (auto) 0.01 K/uL (0.00-0.02); Immature Granulocytes % (auto) 0.1 %; Lymphocytes # (auto) 1.61 K/uL (1.2-3.4); Lymphocytes % (auto) 22.7 %; Mean Corpuscular Hemoglobin 25.3 pg (25-34); Mean Corpuscular Hgb Conc 33.1 g/dL (32-36); Mean Corpuscular Volume 76.4 fL (80-100); Mean Platelet Volume 9.2 fL (7.4-10.4); Monocytes # (auto) 0.95 K/uL (0.11-0.59); Monocytes % (auto) 13.4 %; Neutrophils # (auto) 4.49 K/uL (1.4-6.5); Neutrophils % (auto) 63.4 %; Platelet Count 197 K/uL (130-400); RDW Coefficient of Variation 14.8 % (11.5-14.5); RDW Standard Deviation 41.4 fL (36.4-46.3); Red Blood Count 4.23 M/uL (4.2-5.4); White Blood Count 7.09 K/uL (4.8-10.8)
[2022-02-10 06:37] LABS: BUN Creatinine Ratio 5.1 (10-20); Calcium 8.7 mg/dl (8.5-10.1); Creatinine Clr Calc Pharmacy 105.5 ml/min; Est GFR (African American) 127.7 ml/min; Est GFR (Non-African American) 110.2 ml/min; Phosphorus 1.9 mg/dl (2.5-4.9); Potassium 3.4 mmol/L (3.5-5.1)
[2022-02-10] MEDS ORDERED: POTASSIUM PHOS 3 MMOL/1 ML INFUSION IV STA (08:03)
[2022-02-10] MEDS ORDERED: POTASSIUM CHLORIDE CRTAB 20 MEQ TABCR PO STA (08:04)
[2022-02-10] MEDS ORDERED: POTASSIUM PHOSPHATE 21 MMOL in DEXTROSE 5% 500 ML IV ONE (08:15)
[2022-02-10] MEDS: TOPIRAMATE 50 MG TAB PO SCH (08:29)
[2022-02-10] MEDS: HEPARIN SOD 5,000 UNIT/0.5 ML VIAL SQ SCH (08:29)
[2022-02-10] MEDS ORDERED: POTASSIUM PHOSPHATE 21 MMOL in SODIUM CHLORIDE 0.9% 500 ML IV ONE (08:30)
[2022-02-10] MEDS ORDERED: KETOROLAC TROMETHAMINE 15 MG/ML VIAL IV PRN (09:55)
[2022-02-10] MEDS ORDERED: fentaNYL citrate 100 MCG/2 ML VIAL ONE (11:11)
[2022-02-10] MEDS ORDERED: MIDAZOLAM HCL 1 MG/ML 2ML VIAL ONE (11:11)
--- NOTE | 2022-02-10 11:41 | Anesthesiology Consultation ---
Date of Service February 10, 2022 Assessment & Plan Chart Review Chart Review: Acceptable Risk for Surgery Consults Requested none ASA ASA2 Proposed Anesthesia Anesthesia Type: General Risk / Benefits Reviewed With: PT / POA / Parent / Guardian, Accepts Plan and Informed Consent Obtained History Surgery Operation Date: 02/10/22 10:20 Proposed Procedures p Right Side Lower Facial Incision and Drainage Tooth Extraction - Arik Clay, DMD Height/Weight Height: 5 ft 2 in Weight: 68.8 kg Allergies Allergy/AdvReac Type Severity Reaction Status Date / Time bee venom protein (honey bee) Allergy Severe Anaphylaxis Verified 02/08/22 18:22 Medications Home Medications Medication Instructions Recorded Confirmed Last Taken venlafaxine 150 mg 150 mg PO HS 02/11/19 02/08/22 02/07/22 capsule,extended release 24 hr lamotrigine 200 mg tablet 200 mg PO HS 03/04/21 02/08/22 02/07/22 quetiapine 200 mg tablet 200 mg PO HS 07/17/21 02/08/22 02/07/22 riboflavin (vitamin B2) 400 mg 400 mg PO DAILY #30 tab 07/26/21 02/08/22 02/07/22 tablet ferrous sulfate 325 mg (65 mg 325 mg PO DAILY 08/05/21 02/08/22 02/07/22 iron) tablet (Iron (ferrous sulfate)) ondansetron 4 mg disintegrating 4 mg PO Q6H PRN #10 tab 11/29/21 02/08/22 Unknown tablet albuterol sulfate 90 mcg/actuation 2 puff INHALATION Q4H PRN #8.5 g 12/05/21 0 02/08/22 Unknown aerosol inhaler etonogestrel 68 mg subdermal 68 mg SUBDERMAL CONTINOUS 02/08/22 02/08/22 Unknown implant (Nexplanon) topiramate 25 mg tablet 50 mg PO DAILY 02/08/22 02/08/22 02/07/22 venlafaxine 37.5 mg 37.5 mg PO HS 02/08/22 02/08/22 02/07/22 capsule,extended release 24 hr Active Medications Generic Name Dose Route Start Last Admin Trade Name Freq PRN Reason Stop Dose Admin Acetaminophen 650 mg 02/09/22 06:10 02/10/22 09:49 Acetaminophen 325 Mg Tab PO 03/11/22 06:09 650 mg Q4H PRN Administration Pain or Fever Heparin Sodium (Porcine) 5,000 units 02/09/22 21:00 02/10/22 08:29 Heparin Sod 5,000 Unit/0.5 Ml Vial SQ 03/11/22 20:59 Not Given Q12 CECY Lactated Ringer's 1,000 mls @ 125 mls/hr 02/09/22 09:00 02/10/22 10:12 Lr IV 03/11/22 08:59 125 mls/hr .Q8H CECY Administration Ampicillin Sodium/Sulbactam 108 mls @ 200 mls/hr 02/09/22 10:00 02/10/22 09:15 Sodium 3,000 mg/ Sodium IV 02/19/22 09:59 Infused Chloride Q6H CECY Infusion Protocol Potassium Phosphate 21 mmol/ 507 mls @ 126.75 mls/hr 02/10/22 08:30 02/10/22 09:49 Sodium Chloride IV 02/10/22 12:29 126.8 mls/hr NOW ONE Administration Ketorolac Tromethamine 15 mg 02/10/22 09:55 02/10/22 10:08 Ketorolac Tromethamine 15 Mg/Ml Vial IV 15 mg Q6H PRN Administration Pain Lamotrigine 200 mg 02/09/22 21:00 02/09/22 20:54 Lamotrigine 100 Mg Tab PO 03/11/22 20:59 200 mg HS CECY Administration Metoclopramide HCl 10 mg 02/09/22 00:32 02/09/22 01:28 Metoclopramide Hcl Inj 5 Mg/Ml 2 Ml Vial IV 03/11/22 00:31 10 mg Q6H PRN Administration Nausea (if zofran ineffective) Ondansetron HCl 4 mg 02/09/22 00:32 02/09/22 00:49 Ondansetron Inj 2 Mg/Ml 2 Ml Vial IV 03/11/22 00:31 4 mg Q6H PRN Administration Nausea And Vomiting Quetiapine Fumarate 200 mg 02/09/22 21:00 02/09/22 20:55 Quetiapine Fumarate 200 Mg Tab PO 03/11/22 20:59 200 mg HS CECY Administration Topiramate 50 mg 02/09/22 09:00 02/10/22 08:29 Topiramate 50 Mg Tab PO 03/11/22 08:59 50 mg DAILY CECY Administration Venlafaxine HCl 37.5 mg 02/09/22 21:00 02/09/22 20:55 Venlafaxine Hcl Xr 37.5 Mg Capxr PO 03/11/22 20:59 37.5 mg HS CECY Administration Venlafaxine HCl 150 mg 02/09/22 21:00 02/09/22 20:55 Venlafaxine Hcl Xr 150 Mg Capxr PO 03/11/22 20:59 150 mg HS CECY Administration NPO Date Last Intake of Fluids: 02/09/22 Time Last Intake of Fluids: 20:00 Date Last Intake of Solids: 02/09/22 Time Last Intake of Solids: 16:00 Past Medical History Medical History Abdominal pain Anxiety Asthma Constipation Constipation Depression Eczema Hemangioma Iron deficiency anemia Leukocytosis Metabolic acidosis Microscopic hematuria Periapical abscess of tooth with fistula Vomiting Exercise / Class Metabolic Activity 1 > 8 Run/Swim/Ski/Tennis Past Family History Family History Mother Cancer Anxiety disorder Father Anxiety disorder Past Surgical History Surgical History No significant past surgical history Past Anesthesia History No Hx of Anesthesia Complications and No Family Hx of Anesthesia Complications History of PONV No Hx of PONV and No Hx of Motion Sickness Social History Smoking Status: Never smoker Hx Alcohol Use: Yes Alcohol type: wine alcohol intake frequency: holidays/special occasions only Hx Substance Use: Yes substance use type: marijuana Last Used Substance: Days (ago) Review of Systems ROS Unobtainable: All systems reviewed & are unremarkable except as noted in HPI & below Constitutional: as per Subjective / HPI Eyes: as per Subjective / HPI Ear, Nose, Mouth, Throat: as per Subjective / HPI Respiratory: as per Subjective / HPI Cardiovascular: as per Subjective / HPI Gastrointestinal: as per Subjective / HPI Genitourinary (Female): as per Subjective / HPI Musculoskeletal: as per Subjective / HPI Integumentary: as per Subjective / HPI Neurologic: as per Subjective / HPI Psychiatric: as per Subjective / HPI, + depression, + anxiety and + panic att acks Endocrine: as per Subjective / HPI Hematologic / Lymphatic: as per Subjective / HPI Allergy / Immunological: as per Subjective / HPI Physical Exam Vital Signs Last Vital Signs Temp 37 C 02/10/22 11:07 Pulse 116 H 02/10/22 11:07 Resp 18 02/10/22 11:07 BP 133/86 02/10/22 11:07 Pulse Ox 98 02/10/22 11:07 Constitutional WD/WN, vitals as above well developed, well nourished and + well hydrated; no acute distress ENMT external ear and nose normal, oropharynx normal Mouth: no loose teeth Thyromental Distance: > or= 3.5 Finger Breadths Mallampati Class: II Throat: uvula midline Neck normal visual inspection and trachea midline Respiratory normal respiratory effort, lungs clear to auscultation normal respiratory effort; no respiratory distress Auscultation: lungs clear to auscultation bilaterally Cardiovascular RRR, no murmur, no edema Rate/Rhythm: regular rate and regular rhythm Heart Sounds: no murmur Vessels: no JVD Skin no rashes, warm and dry Neurologic moves all extremities and awake; no focal motor deficits Cranial Nerves: tongue midline and symmetric palate elevation Psychiatric A+Ox3, euthymic affect Orientation: alert and oriented x 3 Apperance: appropriately dressed and appropriately groomed Eye Contact: good eye contact Speech: normal rate/rhythm/volume of speech Affect: euthymic affect Judgement: good judgement Testing Laboratory Results 02/10/22 05:31 02/10/22 05:31 Urine Color Yellow 02/08/22 21:05 Urine Appearance Cloudy (Clear) A 02/08/22 21:05 Urine pH 8.5 (4.5-7.5) H 02/08/22 21:05 Ur Specific [place] 1.027 (1.000-1.030) 02/08/22 21:05 Urine Protein Trace (Negative) H 02/08/22 21:05 Urine Glucose (UA) Negative (Negative) 02/08/22 21:05 Urine Ketones 4+ (Negative) H 02/08/22 21:05 Urine Nitrite Negative (Negative) 02/08/22 21:05 Ur Leukocyte Esterase Negative (Negative) 02/08/22 21:05 Urine WBC (Auto) 1-5 /hpf (0-5) 02/08/22 21:05 Urine RBC (Auto) 10-30 /hpf (0-4) H 02/08/22 21:05 U Hyaline Cast (Auto) 1-5 /lpf (0-5) 02/08/22 21:05 U Epithel Cells (Auto) >30 /lpf (0-5) H 02/08/22 21:05 Urine Bacteria (Auto) Negative (Negative) 02/08/22 21:05 02/09/22 10:23 Aerobic Blood Culture - Preliminary Blood No growth in Aerobic bottle after 24 hours. Anaerobic Blood Culture - Preliminary No growth in Anaerobic bottle after 24 hours. 02/09/22 10:23 Aerobic Blood Culture - Preliminary Blood No growth in Aerobic bottle after 24 hours. Anaerobic Blood Culture - Preliminary No growth in Anaerobic bottle after 24 hours.
[2022-02-10] MEDS ORDERED: GABAPENTIN 600 MG TAB PO STA ×2 (11:42→12:09)
[2022-02-10] MEDS ORDERED: ATROPINE SULFATE 0.1 MG/ML 10ML SYR IV PRN (11:42)
[2022-02-10] MEDS ORDERED: ONDANSETRON INJ 2 MG/ML 2 ML VIAL IV PRN (11:42)
[2022-02-10] MEDS ORDERED: DEXAMETHASONE SOD INJ 4 MG/ML VIAL IV PRN (11:46)
[2022-02-10] MEDS ORDERED: ePHEDrine sulfate 50 MG/ML AMP IV PRN (11:47)
[2022-02-10] MEDS ORDERED: ROCURONIUM BROMIDE 10 MG/ML 5 ML VIAL IV ONE (11:53)
[2022-02-10] MEDS ORDERED: LIDOCAINE 2% 2 ML VIAL/AMP(20MG/ML) INFIL ONE (11:53)
[2022-02-10] MEDS ORDERED: DEXAMETHASONE SOD INJ 4 MG/ML VIAL ONE (11:53)
[2022-02-10] MEDS ORDERED: PROPOFOL IV EMULSION 10 MG/ML 20 ML VIAL IV ONE (11:53)
[2022-02-10] MEDS ORDERED: ONDANSETRON INJ 2 MG/ML 2 ML VIAL ONE (11:56)
[2022-02-10] MEDS ORDERED: GABAPENTIN 300 MG CAP ONE (12:03)
[2022-02-10] MEDS ORDERED: BUPIVACAINE/EPINEPHRINE 0.5% 1:200,000 1.8 ML CARP ONE (12:08)
[2022-02-10] MEDS ORDERED: CHLORHEXIDINE GLUCONATE 0.12% 480 ML ONE (12:13)
--- NOTE | 2022-02-10 12:20 | History & Physical Bridge Note ---
Date of Service February 10, 2022 History & Physical Bridge Note I have examined the patient, reviewed the History & Physical and in the interval since the performance of the History & Physical I have noted the following changes of clinical significance: no changes noted NPO DAJA NEG Reviewed the need for I&D with ext. # 26
[2022-02-10] MEDS: HYDROmorphone INJ 2 MG/ML SYR/VIAL IV PRN ×3 (13:23→13:43)
[2022-02-10] MEDS ORDERED: ONDANSETRON 4 MG OD TAB PO PRN (14:14)
--- NOTE | 2022-02-10 14:47 | Discharge Summary ---
Date of Service February 10, 2022 Admission HPI Per Admitting Provider Jackelyn Knox is a 21yo with history of anxiety/depression, anemia presenting with nausea, vomiting and PO intolerance. Patient developed a migraine 3 days ago which is very typical for her. Yesterday she developed severe nausea with multiple episodes of non-bloody/non-bilious vomiting and PO intolerance. She states that she feels weak and ill. Denies chest pain, cough, SOB. No abdominal pain or diarrhea. No additional complaints at this time. Patient does smoke marijuana daily - appx 2 gm per week. Had similar admission in November 2021 Upon arrival to the ER she is afebrile, HD stable, in moderate distress secondary to persistent nausea. ER Course: NSS x 3 liters, Zofran 4mg IV x 2, Phenergan 12.5mg IV, Reglan 10mg IV, Toradol 15mg IV Principal Diagnosis 1. Dental abscesss/p extraction 2. Facial cellulitis 3. Sepsis syndrome (tachycardia, leukocytosis, elevated lactate, fever) 4. Intractable nausea and vomitinglikely related to infection Discharge Exam General: Resting comfortably in her hospital bed. Appears mildly ill but not toxic. NAD. HEENT: Head is AT/NC. Edema noted of the right side of the face. No erythema. Neck: No JVD. Negative hepatojugular reflex. + Anterior cervical chain and right sided submandibular lymphadenopathy Cardiac: RRR without M/G/R Lungs: CTA without W/R/R Abdomen: Normoactive X4. Soft and nontender in all quadrants. Extremities: No peripheral clubbing cyanosis or edema Neuro: A&O X4. Cranial nerves II through XII are grossly intact. No focal neuro deficits Skin: No obvious skin lesions or rashes Psych: Appropriate affect. Pleasant and cooperative Discharge Data Allergies Allergy/AdvReac Type Severity Reaction Status Date / Time bee venom protein (honey bee) Allergy Severe Anaphylaxis Verified 02/08/22 18:22 Consultations 02/09/22 10:50 Consult Oromaxillofacial Surgery Routine Procedures Performed Operation Date: 02/10/22 10:20 Actual Procedures p Right Side Lower Facial Incision and Drainage Tooth Extraction(Right) - Arik Clay DMD Ordered Studies 02/09/22 07:59 CT facial bones w con Stat Hospital Course (1) Dental abscess: 21-year-old white female with known dental caries presented with intractable nausea and vomiting and subjective fevers/chills. Initially thought to have abdominal migraine , cannabinoid hyperemesis syndrome or migraine i nduced nausea/vomiting; however, she has since developed clinical evidence consistent with sepsis syndrome. She has known dental caries and a CT scan was performed confirming a dental abscess Patient with fever, tachycardia, leukocytosis with left shift metabolic acidosis & lactic acidemia CT scan of the face shows: Numerous dental caries. Large periapical lucency involving the right mandibular incisors with overlying cellulitis and a thin Hiram centric 16mm supreme subperiosteal abscess. 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 Transition to Unasyn for more gram-negative/anaerobic coverage Consulted oromaxillary surgeonDr. Clay--> patient s/p I&D with dental extraction She has since defervesced. She is no longer tachycardic/hemodynamically stable and her white blood cell count is within normal limits. She is tolerating oral intake and her pain is adequately controlled. She is medically and hemodynamically stable for discharge to home Transition antibiotics to Augmentin to complete 7 full days Follow-up with Dr. 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 She is no longer tachycardic, her leukocytosis has resolved, she has defervesced and her lactic acidemia resolved (3) Headache: Likely secondary to dental absess Resolved following IV Benadryl, IV magnesium sulfate, IV Tylenol, and aggressive IV hydration Patient is a chronic migraine suffer and takes Topamax. Continue this (4) Vomiting: Likely secondary to dental abscess and associated sepsis syndrome and may be related to migraine Utilized antiemetics as needed (5) Asthma: Controlled/stable Utilizes ProAir as needed. Continue this if needed (6) Depression: Continue Seroquel and venlafaxine as prior to hospitalization Patient seen both pre and postoperatively. Currently, she is in her room tolerating oral intake. Her pain is adequately controlled. She is medically and hemodynamically stable for discharge to home with continued antibiotics, ibuprofen as needed for pain, and follow-up to see Dr. Clay in the office. Patient has been discussed with and seen and agreed upon by Dr. Baca. Will initiate heparin for DVT prophylaxis Total Time Total Time Spent Total Time Spent (In Minutes): 40 minutes including time spent with patient, preparation of documentation and coordination of care Discharge Plan Discharge Items Patient Disposition: Home - Self-Care Reason For Visit: NAUSEA,VOMITING Discharge Diagnosis: s/p acute facial infection with compactions Condition on Discharge: Good Activity: Resume your previous activity Lifting: Gradually increase as tolerated Bathing: No limitations Exercise/Sports: Gradually increase as tolerated Driving/Machine Use: Resume 1 day after discharge Weightbearing: Full weightbearing Non-emergency contact: Surgeon Call non-emergency contact if: your temperature is above 101.5, your wound has increased redness, your wound has increased drainage and your wound pain has increased Follow-up/Referrals: Devika Mayer CRNP [Primary Care Provider] - Arik Clay DMD [Physician] - Diet: Full liquid and Clear liquid Diet Texture: Easy to Chew Addtl Attending Provider Instructions: ADDITIONAL ACTIVITY RECOMMENDATIONS: * [place] teeth after every meal. It is very important to keep your mouth clean to prevent infection. * Starting tonight rinse with the Peridex as directed then 2 x a day * it is very important to keep well hydrated, this prevents fever and possible dry socket pain SPECIAL CARE INSTRUCTIONS: *It is not uncommon that between day 2-4 that your swelling will be at its worst this is very normal, do not be alarmed. * apply heat (hot water bottle or heating pad) for the next two days, as often as possible. * Tomorrow start rinsing your mouth with 1/2 teaspoon salt in 8 ounces warm water. This rinse should be used every 4-6 hours. * You may experience slight nausea. To prevent this, never take your medication on an empty stomach. If nauseated, take small sips of rafal [place] until you feel better; then you may start on applesauce and toast. * Some swelling is common. It should gradually decrease within 4-5 days. * A certain amount of bleeding is to be expected. It is often possible to control mild oozing by placing folded gauze over the area and biting down for 30 minutes. If you are unable to control excessive bleeding, call Dr Clay at [phone] * You may experience some discomfort for a few days. If pain or swelling increases, Call Dr Clay * Return to the office for a follow up check up on: ThursdayFEBRUARY 25 at 2:00 pm * office address--[address] phone # [phone] Pending Studies at Discharge: No Stand-Alone Forms: My [facility] [employer], Smoking Cessation Medications and DC Order Prescriptions: New amoxicillin-pot clavulanate 875-125 mg tablet 1 tab PO BID Qty: 14 RF: 0 ibuprofen 800 mg tablet 800 mg PO Q8H PRN (Reason: pain) Qty: 20 RF: 0 Continued ferrous sulfate [Iron (ferrous sulfate)] 325 mg (65 mg iron) tablet 325 mg PO DAILY RF: 0 riboflavin (vitamin B2) 400 mg tablet 400 mg PO DAILY Qty: 30 RF: 11 albuterol sulfate 90 mcg/actuation HFA aerosol inhaler 2 puff inhalation Q4H PRN (Reason: cough) Qty: 8.5 RF: 0 venlafaxine 150 mg capsule,extended release 24hr 150 mg PO HS RF: 0 lamotrigine 200 mg tablet 200 mg PO HS RF: 0 quetiapine 200 mg tablet 200 mg PO HS RF: 0 ondansetron 4 mg tablet,disintegrating 4 mg PO Q6H PRN (Reason: nausea and vomiting) Qty: 10 RF: 0 venlafaxine 37.5 mg capsule,extended release 24hr 37.5 mg PO HS RF: 0 topiramate 25 mg tablet 50 mg PO DAILY RF: 0 Nexplanon 68 mg Implant 68 mg SUBDERMAL CONTINOUS RF: 0 Discharge Orders: Discharge Order (Routine); Ordered 02/10/22 Ordered By: Angie Francis Admission Data Admit Date/Time: 02/09/22 10:29 Attending Provider: Edilson Baca Admit Provider: Leandra Hu Primary Care Provider: Devika Mayer Other Providers: Arik Clay Coding Level of Care Code D/C DAY MANAGEMENT >30 MINS Diagnoses Dental abscess K04.7 Sepsis syndrome Headache R51.9 Vomiting R11.2 Nausea presence: with nausea Vomiting type: unspecified Asthma J45.909 Depression F32.9
[2022-02-11] MEDS ORDERED: NON-FORMULARY MEDICATION (Riboflavin (Vitamin B2) 400 mg tablet) PO SCH (09:00)
[2022-02-11] MEDS ORDERED: FERROUS SULFATE 325 MG TAB PO SCH (09:00)
--- NOTE | 2022-02-25 15:58 | Operative Report ---
PG Post Operative Report Pre & Post Diagnosis Operation Date: 02/10/22 10:20 Pre-Op Diagnosis: Dental Abscess lower right chin, submandibular area with significant subperiosteal swelling 24-28 area Post-Op Diagnosis: Dental Abscess lower right chin, submandibular area with significant subperiosteal swelling 24-28 area I identified the patient and participated in the time-out.: Yes Procedure Operation Date: 02/10/22 10:20 Actual Procedures p Right Side Lower Facial Incision and Drainage (Right) lower right chin, submandibular area with significant subperiosteal swelling 24-28 area - Arik Clay DMD s Tooth Extraction(Right) - Arik Clay DMD Surgeon Arik Clay, SYDNEE Wet Process Technician none Estimated Blood Loss 2 Findings Consistent with Post-Op Diagnosis lower right chin, submandibular area with significant subperiosteal swelling 24-28 area Specimens none Drains none Anesthesia Type General Complications none Indications lower right chin, submandibular area with significant subperiosteal swelling 24-28 area Description of Procedure lower right chin, submandibular area with significant subperiosteal swelling 24-28 area M27.2 inflammatory condition of the jaw CPT 53768 I&D [id number] extraction # 26 Pre-op= lower right chin, submandibular area with significant subperiosteal swelling 24-28 area abscess # 26 and associated lesion anterior mandible. Once cleared for surgery general anesthesia was achieved, the eyes were protected by the anesthesia dept criteria.. A time out was take for patient ID, antibiotics, equipment and position verification once all agreed the procedure began. Local anesthesia was given into each area using Marcaine with a vasoconstrictor ( 1.8 ml per site). A throat pack was placed after the oral cavity was irrigated with saline. Once a surgical level of anesthesia was obtained and the local anesthesia was gi taj time for the blocks the surgery was started. I turned my attention to the upper wisdom teeth first. Extraction of lower right # 26 with curetments of osseous defect at apex Drainage of grossly swollen subperiosteal abscess of lateral area of 25-28 The full thick Muco-periosteal flap was made on the distal of tooth # 24 to tooth # 29. The flap was reflected to expose the bone and decayed # 26 tooth. By doing this I drained the pus from the subperiosteal space. The 26 tooth was removed with a 301 elevator and dental forceps. the nerve was intact, there was minimal bleeding. The bone defect was curetted clean. The bone was trimmed, smoothed and the flap was closed with a few 2-0 chromic sutures. There was no need for a drain as a significant amount of drainage was expressed. I inspected the sites to insure all bleeding was controlled. I removed the throat pack and suctioned the throat. A gauze pressure dressings were placed. All instrument and sponge count was correct. the patient was allowed to awake from the anesthesia. Once full awake the anesthesia tube was removed and the patient was taken to the recovery room with all vital sign stable. The patient tolerated the surgery very well. I will follow the patient in my office, Rx and instructions will be given upon discharge. I attest to the content of the Intraoperative Record and any orders documented therein. Any exceptions are noted below.
== END 2022-02-10 15:40 | disposition home or self-care (01) | DRG 872 ==
LOC: ED 17:21 → 3W 17:21 → SUATTDRO 22:00 → 3W 23:45 → 2N 02-09 10:54

== ENCOUNTER 2023-10-21 18:08 | Observation (INO) ==
[2023-10-21] MEDS: ONDANSETRON INJ 2 MG/ML 2 ML VIAL IV STA (18:21)
[2023-10-21] MEDS: ONDANSETRON INJ 2 MG/ML 2 ML VIAL ONE (18:23)
[2023-10-21] MEDS: SODIUM CHLORIDE 0.9% 1,000 ML IV SCH (18:23)
[2023-10-21 19:00] LABS: Basophils # (auto) 0.03 K/uL (0.00-0.20); Basophils % (auto) 0.4 %; Hemoglobin 16.5 g/dl (12.0-16.0); Immature Granulocytes # (auto) 0.02 K/uL (0.01-0.20); Immature Granulocytes % (auto) 0.3 %; Lymphocytes # (auto) 1.81 K/uL (1.20-3.40); Lymphocytes % (auto) 23.8 %; Mean Corpuscular Hemoglobin 28.6 pg (25.0-34.0); Mean Corpuscular Hgb Conc 35.1 g/dL (32.0-36.0); Mean Corpuscular Volume 81.5 fL (80.0-100.0); Monocytes # (auto) 0.48 K/uL (0.11-0.59); Monocytes % (auto) 6.3 %; Neutrophils # (auto) 5.25 K/uL (1.40-6.50); Neutrophils % (auto) 69.2 %; Platelet Count 311 K/uL (130-400); RDW Coefficient of Variation 12.7 % (11.5-14.5); Red Blood Count 5.77 M/uL (4.20-5.40); White Blood Count 7.59 K/ul (4.8-10.8)
[2023-10-21 19:18] LABS: Albumin Globulin Ratio 1.5 (0.9-2); BUN Creatinine Ratio 11.6 (10-20); Bilirubin,Total 0.8 mg/dl (0.2-1.0); Calcium 10.1 mg/dl (8.6-10.3); Creatinine Clr Calc Pharmacy 96.2 ml/min; Est GFR (African American) 111.9 ml/min; Est GFR (Non-African American) 96.6 ml/min; Globulin 3.3 gm/dl (2.5-4.0); Potassium 3.4 mmol/L (3.5-5.1); Total Protein 8.3 gm/dl (6.0-8.3)
--- NOTE | 2023-10-21 20:14 | Emergency Department Note ---
Impression & Plan Intractable nausea and vomiting, Acute dehydration, Increased anion gap metabolic acidosis ED Provider Note NAME: OLIVIER PEOPLES AGE: 23 SEX: F : 2000 ARRIVES VIA: Walk-In INFORMANT: Patient, ED PROVIDER(S): Tone Luo MD CHIEF COMPLAINT: MEDICAL DECISION MAKING: Patient presents due to concern for nausea vomiting. Patient did complain of abdominal pain but does not have any significant tenderness to palpation on exam. The patient does have hypokalemia and signs consistent with dehydration likely secondary to vomiting giving lower bicarb and anion gap. IV was established and blood work was obtained. The patient did not have significant improvement of her during her initial IV fluids and Zofran. The patient was ordered IV Benadryl IV Reglan IV fluids and IV Toradol. Patient also did have a COVID combo ordered. Blood work shows a normal white count mild elevation in hemoglobin which may be due to hemoconcentration and dehydration 16.5 with a normal platelet count. Kidney function is unremarkable BSG 126 but nonfasting. LFTs are low. The patient did have persistent nausea and vomiting. Patient's pain did improve. The patient was given Reglan and Benadryl. The patient still has symptoms and was ordered IV Phenergan. The patient was still vomiting. An EKG was obtained which shows that the QT is prolonged and do not believe she can receive additional antibiotics. The patient was ordered IV fluids and I did speak the on-call hospital service patient was admitted by the medicine service Dr. Hu. Of note the patient does not have a surgical abdomen does not peritonitic on exam. Patient has a normal white blood cell count no fever. Discussion w/ other healthcare providers: Dr. Hu inpatient medicine service Prior /Outside records reviewed: I did review an outpatient rheumatology notes from [facility]. Patient does follow-up for lupus and is on Plaquenil. Patient does suffer from joint pains. Differential diagnosis: Gastroenteritis, food borne illness, infection, appendicitis, diverticulitis, inflammatory bowel disease, obstruction among others were considered. Diagnostics, as interpreted by me: ECG: Normal sinus rhythm, rate of 92, normal OR and QRS, normal axis, no ST elevations. Repeat EKG interpreted by me Sinus, rate 92, normal OR and QRS, prolonged QTc, no ST elevations. Cardiac monitoring: An order was placed for continuous cardiac monitoring. The monitor shows a rate of 95 with sinus rhythm. Patient was placed on pulse oximetry Medical decision rules: None Imaging studies: None HPI: Patient presents due to concern for diffuse abdominal pain associated nausea vomiting. The patient developed symptoms this morning. The patient did feel warm and was unsure as to whether she had a fever. Patient denies any chest pains or shortness of breath no cough. No known sick contacts or recent travel. Patient denies any alcohol or drug use.Patient has had some associated dizziness. The patient has not had any syncope. Patient denies any changes in diet. Patient is accompanied by her mother. Patient does have a known history of lupus and does take Plaquenil. Patient does not currently take any antibiotics. Patient denies any headache. PAST MEDICAL HISTORY: See Below PAST SURGICAL HISTORY: See Below SOCIAL HISTORY: See Below HOME MEDICATIONS: See Below ALLERGIES: See Below VITALS: See Below PHYSICAL EXAMINATION: GENERAL: Fatigable in appearance, holding emesis bag EYE EXAM: Normal conjunctiva. PERRL, no anisocoria and EOM's grossly intact w/o pain. OROPHARYNX: Moist mucus membranes, grossly normal dentition. NECK: Trachea midline, no stridor. LUNGS: Clear to auscultation. Normal chest wall mechanics. HEART: NSR, no MRG. ABDOMEN: Abdomen soft, non-tender, no masses, no rebound or guarding. BACK: No CVA TTP. SKIN: No rashes and no bruising. UPPER EXTREMITIES: Upper extremities are grossly normal. LOWER EXTREMITIES: Grossly normal, no edema. NEURO EXAM: A&O x3, cranial nerves II-XII grossly intact, normal speech, moves all 4 extremities. Past Med/Surg History Medical History Systemic lupus erythematosus Dental abscess Microscopic hematuria Constipation Iron deficiency anemia Leukocytosis Metabolic acidosis Vomiting Abdominal pain Hemangioma Periapical abscess of tooth with fistula Depression Asthma Eczema Constipation Anxiety Surgical History No significant past surgical history Family History (Reviewed 10/22/23 @ :25 by Tone Luo MD) Mother Cancer Anxiety disorder Father Anxiety disorder Social History Smoking Status: Never smoker Second Hand Exposure: No; Do You Dip or Chew Tobacco: No; Hx Alcohol Use: Yes Alcohol type: wine Hx Substance Use: Yes Last Used Substance: Days (ago) Preferred Language: Sammarinese Communication Ability: Effective Visual Impairment: No Limitations Pace Analyst Required: No Beliefs That Will Affect Care: None marital status: Single Current Living Situation: Significant Other Feels Safe at Home: Yes Assistive Devices: Glasses Allergies Allergies Allergy/AdvReac Type Severity Reaction Status Date / Time bee venom protein (honey bee) Allergy Severe Anaphylaxis Verified 10/21/23 23:23 Home Meds Home Medications Medication Instructions Recorded Confirmed venlafaxine 150 mg 150 mg PO HS 02/11/19 10/21/23 capsule,extended release 24 hr lamotrigine 200 mg tablet 200 mg PO HS 03/04/21 10/21/23 quetiapine 200 mg tablet 200 mg PO HS 07/17/21 10/21/23 ferrous sulfate 325 mg (65 mg 325 mg PO DAILY 08/05/21 10/21/23 iron) tablet (Iron (ferrous sulfate)) topiramate 25 mg tablet 50 mg PO DAILY 02/08/22 10/21/23 venlafaxine 37.5 mg 37.5 mg PO HS 02/08/22 10/21/23 capsule,extended release 24 hr hydroxychloroquine 200 mg tablet 200 mg PO BID 09/07/23 10/21/23 cholecalciferol (vitamin D3) 50 50 mcg PO DAILY 10/21/23 10/21/23 mcg (2,000 unit) tablet Previous Rx's Medication Instructions Recorded riboflavin (vitamin B2) 400 mg 400 mg PO DAILY #30 tabs 07/26/21 tablet ondansetron 4 mg disintegrating 4 mg PO Q6H PRN nausea and 11/29/21 tablet vomiting #10 tabs albuterol sulfate 90 mcg/actuation 2 puff inhalation Q4H PRN cough 12/05/21 aerosol inhaler #8.5 grams ibuprofen 800 mg tablet 800 mg PO Q8H PRN pain #20 tabs 02/10/22 Results & Data (ED) Vital Signs Vital Signs - 24 hr 10/21/23 18:09 10/21/23 19:17 10/21/23 19:17 Temperature 36.6 C Temperature Source Temporal Artery Scan Pulse Rate 90 84 Pulse Rate [Apical] 93 H Pulse Rate from SpO2 Sensor Respiratory Rate 18 20 Respiratory Effort / Characteristics Non-Labored Spontaneous Respiratory Depth Normal Respiratory Pattern Regular Blood Pressure 122/80 Blood Pressure [Right Arm] 132/76 Blood Pressure Mean 94 Blood Pressure Mean [Right Arm] 94 Blood Pressure Position [Right Arm] Pulse Oximetry 99 100 Oxygen Delivery Method Room Air Room Air Sepsis Recent Fever Within 48 Hours No Sepsis New/Unexplained Change in Mental Status N/A Sepsis Action Taken by Nursing No Action Required 10/21/23 21:00 10/21/23 23:00 Temperature Temperature Source Pulse Rate 110 H Pulse Rate [Apical] 89 Pulse Rate from SpO2 Sensor 103 H Respiratory Rate 20 21 Respiratory Effort / Characteristics Non-Labored Spontaneous Respiratory Depth Normal Respiratory Pattern Regular Blood Pressure 115/89 Blood Pressure [Right Arm] 106/82 Blood Pressure Mean 97 Blood Pressure Mean [Right Arm] 90 Blood Pressure Position [Right Arm] Semi-fowlers Pulse Oximetry 99 98 Oxygen Delivery Method Room Air Sepsis Recent Fever Within 48 Hours Sepsis New/Unexplained Change in Mental Status Sepsis Action Taken by Alf Medications Current Medication List: was personally reviewed by me Laboratory Data Attestation: I reviewed the patient's lab results. 10/21/23 18:25 10/21/23 18:25 Lab Results 10/21/23 10/21/23 Range/Units 18:25 20:39 WBC 7.59 (4.8-10.8) K/ul RBC 5.77 H (4.20-5.40) M/uL Hgb 16.5 H (12.0-16.0) g/dl Hct 47.0 (37.0-47.0) % MCV 81.5 (80.0-100.0) fL MCH 28.6 (25.0-34.0) pg MCHC 35.1 (32.0-36.0) g/dL RDW Std Deviation 37.0 (36.4-46.3) fL RDW Coeff of Indira 12.7 (11.5-14.5) % Plt Count 311 (130-400) K/uL MPV 9.0 L (9.4-12.4) fL Immature Gran % (Auto) 0.3 % Neut % (Auto) 69.2 % Lymph % (Auto) 23.8 % [place] % (Auto) 6.3 % Eos % (Auto) 0.0 % Baso % (Auto) 0.4 % Neut # (Auto) 5.25 (1.40-6.50) K/uL Lymph # (Auto) 1.81 (1.20-3.40) K/uL [place] # (Auto) 0.48 (0.11-0.59) K/uL Eos # (Auto) 0.00 (0.00-0.50) K/uL Baso # (Auto) 0.03 (0.00-0.20) K/uL Immature Gran # (Auto) 0.02 (0.01-0.20) K/uL Sodium 137 (136-145) mmol/L Potassium 3.4 L (3.5-5.1) mmol/L Chloride 106 (98-107) mmol/L Carbon Dioxide 15 L (21-32) mmol/L Anion Gap 16 H (3-11) BUN 10 (6-23) mg/dl Creatinine 0.86 (0.6-1.2) mg/dl Est Cr Clr Drug Dosing 96.2 ml/min Est GFR ( Amer) 111.9 ml/min Est GFR (Non-Af Amer) 96.6 ml/min BUN/Creatinine Ratio 11.6 (10-20) Glucose 126 H (70-99(Fasting)) mg/dl Calcium 10.1 (8.6-10.3) mg/dl Total Bilirubin 0.8 (0.2-1.0) mg/dl AST 12 L (13-39) U/L ALT 6 L (7-52) U/L Alkaline Phosphatase 84 (34-104) U/L Total Protein 8.3 (6.0-8.3) gm/dl Albumin 5.0 (3.4-5.0) gm/dl Globulin 3.3 (2.5-4.0) gm/dl Albumin/Globulin Ratio 1.5 (0.9-2) Lipase 36 (11-82) U/L SARS-CoV-2 (PCR) NEGATIVE (Negative) Influenza Type A (PCR) Negative (Neg) Influenza Type B (PCR) Negative (Neg) RSV (RT-PCR) Negative (Neg) Administered Medications Discontinued Medications Diphenhydramine HCl (Diphenhydramine 50 Mg/Ml Vial) 12.5 mg IV NOW STA Stop: 10/21/23 20:29 Last Admin: 10/21/23 20:37 Dose: 12.5 mg Documented By: PHILIPPE Sodium Chloride (Nss) 1,000 mls @ 999 mls/hr IV .Q1H1M CECY Stop: 10/21/23 19:30 Last Infusion: 10/21/23 19:30 Dose: Infused Documented By: Admin: 10/21/23 18:23 Dose: 999 mls/hr Documented By: SKYLER Sodium Chloride (Nss) 1,000 mls @ 999 mls/hr IV .Q1H1M ONE Stop: 10/21/23 21:28 Last Infusion: 10/21/23 22:08 Dose: Infused Documented By: Admin: 10/21/23 20:32 Dose: 999 mls/hr Documented By: PHILIPPE Promethazine HCl (Phenergan) 12.5 mg in 50.5 mls @ 202 mls/hr IV NOW STA Stop: 10/21/23 21:45 Last Infusion: 10/21/23 22:08 Dose: Infused Documented By: Admin: 10/21/23 21:36 Dose: 202 mls/hr Documented By: PHILIPPE Sodium Chloride (Nss) 1,000 mls @ 999 mls/hr IV .Q1H1M ONE Stop: 10/22/23 00:22 Last Infusion: 10/22/23 01:04 Dose: Infused Documented By: Admin: 10/21/23 23:58 Dose: 999 mls/hr Documented By: RAQUEL Ketorolac Tromethamine (Ketorolac Tromethamine 15 Mg/Ml Vial) 10 mg IV NOW ONE Stop: 10/21/23 20:29 Last Admin: 10/21/23 20:34 Dose: 10 mg Documented By: PHILIPPE Lorazepam (Lorazepam 1 Mg/1 Ml Syr Ed Inj Use) 0.5 mg IV ONE STA Stop: 10/22/23 00:04 Last Admin: 10/22/23 00:14 Dose: 0.5 mg Documented By: RAQUEL Metoclopramide HCl (Metoclopramide Hcl Inj 5 Mg/Ml 2 Ml Vial) 10 mg IV NOW STA Stop: 10/21/23 20:29 Last Admin: 10/21/23 20:35 Dose: 10 mg Documented By: PHILIPPE Ondansetron HCl (Ondansetron Inj 2 Mg/Ml 2 Ml Vial) Confirm Administered Dose 4 mg .ROUTE .STK-MED ONE Stop: 10/21/23 18:19 Last Admin: 10/21/23 18:23 Dose: Not Given Documented By: SKYLER Ondansetron HCl (Ondansetron Inj 2 Mg/Ml 2 Ml Vial) 4 mg IV NOW STA Stop: 10/21/23 18:19 Last Admin: 10/21/23 18:21 Dose: 4 mg Documented By: SKYLER Discharge Plan Visit Data Chief Complaint: Vomiting Stated Complaint: VOMITING, HAS MARQUISE ED Provider: Tone Luo Discharge Problem: Intractable nausea and vomiting, Acute dehydration, Increased anion gap metabolic acidosis Patient Disposition: Admitted As Inpatient Discharge Instructions Interventions: ED Discharge Assessment Last Done: 10/22/23 00:15
[2023-10-21] MEDS: SODIUM CHLORIDE 0.9% 1,000 ML IV ONE ×2 (20:32→23:58)
[2023-10-21] MEDS: KETOROLAC TROMETHAMINE 15 MG/ML VIAL IV ONE (20:34)
[2023-10-21] MEDS: METOCLOPRAMIDE HCL INJ 5 MG/ML 2 ML VIAL IV STA (20:35)
[2023-10-21] MEDS: diphenhydrAMINE 50 MG/ML VIAL IV STA (20:37)
[2023-10-21] MEDS: PROMETHAZINE 12.5 MG/50.5 ML BAG IV STA (21:36)
[2023-10-21 22:00] LABS: Influenza A virus by PCR Negative (Neg); Influenza B virus by PCR Negative (Neg); RSV by PCR Negative (Neg); SARS CoV2 RNA(COVID-19) Ceph NEGATIVE (Negative)
--- NOTE | 2023-10-21 23:24 | History & Physical Report ---
Date of Service October 21, 2023 Assessment & Plan (1) Intractable nausea and vomiting: Plan: 23yo female presenting with intractable nausea and vomiting as well as several episodes of watery diarrhea. No leukocytosis. Liver studies and Lipase are within normal limits. Patient is unable to tolerate PO intake, even ice chips at this time. She appears clinically dry on exam as well as demonstrates hemoconcentration, AGMA with hypokalemia, hypomagnesemia and hypophosphatemia present. Ddx unclear - patient has presented similarly in the past. Possibly cyclic vomiting, possibly secondary to her lupus -Observation to medical with telemetry -Check Stool GI PCR -Continue IVF with LR at 125mL/hr + 20mEq KCL x 2L -Mg repletion x 2gm ordered -Neutraphos PO x 3 days ordered -Will give Ativan PRN nausea for now given prolonged QT interval -Repeat EKG in AM to assess QT interval -KUB in AM to assess for obstructive pattern (2) Systemic lupus erythematosus: Plan: Chronic. Patient is on Hydroxychloroquine 200mg po BID -Continue home medications -Monitor QT interval (3) Depression: Plan: Chronic. -Continue home medications - Lamictal, Seroquel and Venlafaxine. Patient's home medications may need to be adjusted pending QT interval. Consider Psychiatry consultation History of Present Illness Chief Complaint: nausea and vomiting Primary Care Provider: [facility] Abilio is a 23yo female with history of Systemic Lupus erythematosus on Plaquenil therapy presenting from home with intractable nausea and vomiting as well as several episodes of watery diarrhea. Patient reports feeling well yesterday. She has no sick contacts or travel. She woke this morning with diffuse abdominal pain and nausea with multiple episodes of non-bloody emesis. She has vomited every few minutes throughout the day. She had several episodes of watery, non-bloody diarrhea as well. She has not been able to keep down food or drink. She reports that she has urinated several times today. She has some dizziness but no syncope. No chest pain, cough, SOB. No fever but has had some hot and cold flashes. No additional complaints at this time In the ER she was given multiple anti-emetic agents with minimal improvement. She had a repeat EKG which showed some QT prolongation ER Course: Zofran 4mg IV NSS x2L Toradol 10mg IV Reglan 10mg IV Benadryl 12.5mg IV Promethazine 12.5mg IV Allergies Allergy/AdvReac Type Severity Reaction Status Date / Time bee venom protein (honey bee) Allergy Severe Anaphylaxis Verified 10/21/23 23:23 Home Medications Medication Instructions Recorded Confirmed Type venlafaxine 150 mg 150 mg PO HS 02/11/19 10/21/23 History capsule,extended release 24 hr lamotrigine 200 mg tablet 200 mg PO HS 03/04/21 10/21/23 History quetiapine 200 mg tablet 200 mg PO HS 07/17/21 10/21/23 History riboflavin (vitamin B2) 400 mg 400 mg PO DAILY #30 tabs 07/26/21 10/21/23 Rx tablet ferrous sulfate 325 mg (65 mg 325 mg PO DAILY 08/05/21 10/21/23 History iron) tablet (Iron (ferrous sulfate)) ondansetron 4 mg disintegrating 4 mg PO Q6H PRN nausea and 11/29/21 10/21/23 Rx tablet vomiting #10 tabs albuterol sulfate 90 mcg/actuation 2 puff inhalation Q4H PRN cough 12/05/21 10/21/23 Rx aerosol inhaler #8.5 grams topiramate 25 mg tablet 50 mg PO DAILY 02/08/22 10/21/23 History venlafaxine 37.5 mg 37.5 mg PO HS 02/08/22 10/21/23 History capsule,extended release 24 hr ibuprofen 800 mg tablet 800 mg PO Q8H PRN pain #20 tabs 02/10/22 10/21/23 Rx hydroxychloroquine 200 mg tablet 200 mg PO BID 09/07/23 10/21/23 History cholecalciferol (vitamin D3) 50 50 mcg PO DAILY 10/21/23 10/21/23 History mcg (2,000 unit) tablet Past Med/Surg History Medical History Systemic lupus erythematosus Dental abscess Microscopic hematuria Constipation Iron deficiency anemia Leukocytosis Metabolic acidosis Vomiting Abdominal pain Hemangioma Periapical abscess of tooth with fistula Depression Asthma Eczema Constipation Anxiety Surgical History No significant past surgical history Family History Mother Cancer Anxiety disorder Father Anxiety disorder Social History Smoking Status: Never smoker Second Hand Exposure: No; Do You Dip or Chew Tobacco: No; Hx Alcohol Use: Yes Alcohol type: wine Hx Substance Use: Yes Last Used Substance: Days (ago) Preferred Language: Malay Communication Ability: Effective Visual Impairment: No Limitations Materials Director Required: No Beliefs That Will Affect Care: None marital status: Single Current Living Situation: Significant Other Feels Safe at Home: Yes Assistive Devices: Glasses Review of Systems Review of Systems: All systems reviewed & are unremarkable except as noted in HPI & below Physical Exam Physical Exam: General: patient ill in appearance, vomiting throughout interview Skin: pale, diaphoretic, no rash HEENT: NC/AT, PERRL, EOMI, anicteric sclera, conjunctiva without injection, external ear normal to inspection and nontender, nares patent, dry mucus membranes, dentition intact, no oropharyngeal lesions, neck supple, trachea midline, no LAD, no thyromegaly, no JVD Heart: +S1/S2, regular, no m/r/g Lungs: equal air entry bilaterally, no rales/rhonchi/wheezes Abd: +BS, soft, ND, tender in the lower abdomen without rebound/guarding/peritonitis, no masses/organomegaly/ascites Ext: warm, 2+ pulses in UE/LE bilaterally, no clubbing/cyanosis or edema Neuro: nonfocal, patient AA&O x 4, speech intact, no facial droop, moving all extremities on command with equal strength 5/5 Results & Data Results & Data Vital Signs (Past 12 Hours) Vital Signs Temp Pulse Pulse Resp BP BP Pulse Ox 10/21/23 23:00 110 H 21 115/89 98 10/21/23 21:00 89 20 106/82 99 10/21/23 19:17 84 10/21/23 19:17 93 H 20 132/76 100 10/21/23 18:09 36.6 C 90 18 122/80 99 O2 Del Method 10/21/23 23:00 10/21/23 21:00 Room Air 10/21/23 19:17 10/21/23 19:17 Room Air 10/21/23 18:09 Room Air Laboratory Results Laboratory Results WBC 7.59 K/ul (4.8-10.8) 10/21/23 18: RBC 5.77 M/uL (4.20-5.40) H 10/21/23 18: Hgb 16.5 g/dl (12.0-16.0) H 10/21/23 18: Hct 47.0 % (37.0-47.0) 10/21/23 18: MCV 81.5 fL (80.0-100.0) 10/21/23 18: MCH 28.6 pg (25.0-34.0) 10/21/23 18: MCHC 35.1 g/dL (32.0-36.0) 10/21/23: RDW Std Deviation 37.0 fL (36.4-46.3) 10/21/23: RDW Coeff of Indira 12.7 % (11.5-14.5) 10/21/23: Plt Count 311 K/uL (130-400) 10/21/23: MPV 9.0 fL (9.4-12.4) L 10/21/23: Immature Gran % (Auto) 0.3 % 10/21/23: Neut % (Auto) 69.2 % 10/21/23 18: Lymph % (Auto) 23.8 % 10/21/23 18: [place] % (Auto) 6.3 % 10/21/23: Eos % (Auto) 0.0 % 10/21/23: Baso % (Auto) 0.4 % 10/21/23: Neut # (Auto) 5.25 K/uL (1.40-6.50) 10/21/23 18: Lymph # (Auto) 1.81 K/uL (1.20-3.40) 10/21/23 18: [place] # (Auto) 0.48 K/uL (0.11-0.59) 10/21/23 18: Eos # (Auto) 0.00 K/uL (0.00-0.50) 10/21/23 18: Baso # (Auto) 0.03 K/uL (0.00-0.20) 10/21/23 18:25 Immature Gran # (Auto) 0.02 K/uL (0.01-0.20) 10/21/23 18:25 Sodium 137 mmol/L (136-145) 10/21/23 18:25 Potassium 3.4 mmol/L (3.5-5.1) L 10/21/23 18:25 Chloride 106 mmol/L (98-107) 10/21/23 18:25 Carbon Dioxide 15 mmol/L (21-32) L 10/21/23 18:25 Anion Gap 16 (3-11) H 10/21/23 18:25 BUN 10 mg/dl (6-23) 10/21/23 18:25 Creatinine 0.86 mg/dl (0.6-1.2) 10/21/23 18: Est Cr Clr Drug Dosing 96.2 ml/min 10/21/23 18:25 Est GFR ( Amer) 111.9 ml/min 10/21/23 18:25 Est GFR (Non-Af Amer) 96.6 ml/min 10/21/23 18:25 BUN/Creatinine Ratio 11.6 (10-20) 10/21/23 18:25 Glucose 126 mg/dl (70-99(Fasting)) H 10/21/23 18:25 Calcium 10.1 mg/dl (8.6-10.3) 10/21/23 18:25 Phosphorus 1.7 mg/dl (2.5-4.9) L 10/22/23 00:33 Magnesium 1.6 mg/dl (1.7-2.4) L 10/22/23 00:33 Total Bilirubin 0.8 mg/dl (0.2-1.0) 10/21/23 18:25 AST 12 U/L (13-39) L 10/21/23 18:25 ALT 6 U/L (7-52) L 10/21/23 18:25 Alkaline Phosphatase 84 U/L (34-104) 10/21/23 18:25 Total Protein 8.3 gm/dl (6.0-8.3) 10/21/23 18:25 Albumin 5.0 gm/dl (3.4-5.0) 10/21/23 18:25 Globulin 3.3 gm/dl (2.5-4.0) 10/21/23 18:25 Albumin/Globulin Ratio 1.5 (0.9-2) 10/21/23 18:25 Lipase 36 U/L (11-82) 10/21/23 18:25 SARS-CoV-2 (PCR) NEGATIVE (Negative) 10/21/23 20:39 Influenza Type A (PCR) Negative (Neg) 10/21/23 20:39 Influenza Type B (PCR) Negative (Neg) 10/21/23 20:39 RSV (RT-PCR) Negative (Neg) 10/21/23 20:39 ECG Additional Comments: EKG with SR at 92bpm, sinus arrhythmia, FY=589, QRS=82, QTc prolonged at 504 ms, no acute ischemic changes PG Care Time/CCT Total # of Minutes Spent Total Time Spent with Patient: Total time spent is greater than 50% in coordination of care (as documented) at patient's floor/unit and/or counseling patient: Coding Level of Care Code 72575 INT INP/OBS CARE 2/55MIN Diagnoses Intractable nausea and vomiting R11.2 Systemic lupus erythematosus M32.9 Depression F32.9
[2023-10-22] MEDS: LORazepam 1 MG/1 ML SYR ED Inj Use IV STA (00:14)
[2023-10-22 01:21] LABS: Magnesium 1.6 mg/dl (1.7-2.4); Phosphorus 1.7 mg/dl (2.5-4.9)
[2023-10-22] MEDS ORDERED: ALBUTEROL HFA 8 GM INHALER INH PRN (01:26)
[2023-10-22] MEDS: MAGNESIUM SULFATE / D5W 1 GM/100 ML BAG IV SCH (02:27)
[2023-10-22] MEDS: POTASSIUM CHLORIDE 20 MEQ in LACTATED RINGER'S 1,000 ML IV SCH (02:27)
[2023-10-22] MEDS: PROCHLORPERAZINE 5 MG in SYRINGE 4 ML IV PRN (03:17)
--- OUTSIDE RECORDS SUMMARY | 2023-10-22 08:42 | External Medical Summary | Summary of Care ---
Author Name Unknown Organization [facility] Address [address] [place] [facility] [place] [address] Phone [phone] Care Team Providers Care Waiter/Waitress Cabin Class Name Role Phone LeylaElizabeth eduardokizzy Lorenzanae DARRICK Primary Care Provider Reason for Visit * Reason Onset Date Comments Medication Refill 06/18/2023 Encounter Details Date Type Department Care Team Description 06/18/2023 Refill Rheumatology [place] [id number] [place] [address] Tim Silva MD [address] [place] [address] Allergies No known active allergiesdocumented as of this encounter (statuses as of 06/19/2023) Medications Medication Sig Dispensed Refills Start Date End Date Status MIRALAX PO POWD 2 tsp daily 0 10/15/2010 Active Venlafaxine HCl ER 37.5 MG Oral Capsule Extended Release 24 Hour (Effexor XR) 5 Capsules. Daily 0 01/30/2022 Active QUEtiapine Fumarate 200 MG Oral Tablet (SEROquel) 1 Tablet. At bedtime 0 12/19/2021 Active Topiramate 25 MG Oral Tablet (topAMAX) Take 2 Tablets by mouth in the morning. 0 12/31/2021 Active Rizatriptan Benzoate 10 MG Oral Tablet TAKE 1 TABLET NEEDED FOR MIGRAINE, MAY REPEAT ONCE IN 2 HOURS 0 02/08/2022 Active Riboflavin 400 MG Oral Tablet Take 1 Tablet by mouth in the morning. 0 01/02/2022 Active Ondansetron 4 MG Oral Tablet Disintegrating (Zofran) DISSOLVE 1 TABLET IN THE MOUTH EVERY 8 HOURS NEEDED FOR NAUSEA 0 02/08/2022 Active lamoTRIgine 200 MG Oral Tablet (LaMICtal) 1 Tablet. 0 01/09/2022 Active Vitamin D3 50 MCG (2000 UT) Oral Tablet Take 1 Tablet by mouth in the morning. 0 04/14/2022 Active Vitamin B-12 100 MCG Oral Tablet (vitamin B-12) Take 1 Tablet by mouth in the morning. 0 04/14/2022 Active Hydroxychloroquine Sulfate 200 MG Oral Tablet (Plaquenil)Indicatio ns:Other systemic lupus erythematosus with other organ involvement (HCC) Take by mouth 1 Tablet in the morning AND 1 Tablet before bedtime. 180 Tablet 4 07/02/2022 Active Venlafaxine HCl ER 150 MG Oral Capsule Extended Release 24 Hour (Effexor XR) 1 daily 0 12/25/2022 Active Vitamin D (Ergocalciferol) 1.25 MG (89286 UT) Oral Capsule (Drisdol) Take 1 Capsule by mouth once a week. 15 Capsule 0 01/20/2023 3 Discontinue d(Medicatio n List Clean Up) documented as of this encounter (statuses as of 06/19/2023) Active Problems Problem Noted Date Depression with anxiety 02/18/2022 Asthma 02/18/2022 Constipation 02/18/2022 Eczema 02/18/2022 Iron deficiency anemia 02/18/2022 Hemangioma 02/18/2022 Syncope 03/06/2016 Otitis media 07/24/2008 STREP SORE THROAT,RECURRENT 07/24/2008 documented as of this encounter (statuses as of 06/19/2023) Immunizations Name Administration Dates Next Due Covid-19 Ad26, Single Dose (Renetta/J&J) 021 Seasonal Influenza, Quadrivalent, No Preserve, I M 07/16/2016 documented as of this encounter Social History Tobacco Use Types Packs/Day Years Used Date Smoking Tobacco: Never Smokeless Tobacco: Never Alcohol Use Standard Drinks/Week Comments No 0 (1 standard drink = 0.6 oz pur e alcohol) Sex Assigned at Date Recorded Female 12/28/2022 7:13 PM E DT Job Start Date Occupation Industry Not on file Not on file Not on file documented as of this encounter Miscellaneous Notes * Telephone Encounter - Tim Silva MD - 06/19/2023 8:24 AM EDT See email documented in this encounter Plan of Treatment Health Maintenance Due Date Last Done Comments Hepatitis B (1 of 3 - 3-dose series) 2002 Pneumococcal Vaccine: Pediatrics (0 to 5 Years) and At-Risk Patients (6 to 64 Years) (1 - PCV) 2008 DTaP,Tdap,and Td Vaccines (6 - Tdap) 2013 03/31/2007, 09/13/2003, 2002, Additional history exists GARDASIL-HPV IMMUNIZATION SERIES (1 - 2-dose series) 2013 Depression Screening 2014 Yearly Wellness Visit 03/12/2016 03/12/2015 Gonorrhea / Chlamydia Screen 2017 HIV Screening 2017 Hepatitis C Screening 2020 COVID-19 Vaccine (2 - Renetta risk series) 04/04/2021 03/07/2021 *SPIROMETRY ONCE FOR ASTHMA-ADULT 07/31/2022 Pap Smear 2023 Influenza Vaccine (FLU shot) Completed 05/25/2023, 07/16/2016 MENINGOCOCCAL (MENACTRA/MENVEO) Aged Out No longer eligible based on patient's age to complete this topic documented as of this encounter Medical Devices Not on filedocumented as of this encounter Care Teams Waiter/Waitress Cabin Class Relationship Specialty Start Date End Date Devika Mayer CRNP [address] [place] [address] PCP - General Nurse Practitioner 12/19/21 documented as of this encounter
--- OUTSIDE RECORDS SUMMARY | 2023-10-22 08:42 | External Medical Summary | Summary of Care ---
Author Name Unknown Organization [facility] Address [address] [place] [address] Phone [phone] Care Team Providers Care Histologist Name Role Phone LeylaElizabeth eduardokizzy HOLLINGSWORTH Primary Care Provider Reason for Visit * Reason Onset Date Comments Advice 04/14/2023 Med refill quest ion Encounter Details Date Type Department Care Team (Late st Contact Info) Description 04/14/2023 Telephone Rheumatology [facility] [address] [facility] [place] [address] Tim Silva MD [address] [facility] [place] [address] Advice (Med refill question) Allergies No known active allergiesdocumented as of this encounter (statuses as of 07/14/2023) Medications Medication Sig Dispensed Refills Start Date [...] 12/25/2022 Active Vitamin D (Ergocalciferol) 1.25 MG (43143 UT) Oral Capsule (Drisdol) Take 1 Capsule by mouth once a week. 15 Capsule 0 01/20/2023 3 Discontinue d(Medicatio n List Clean Up) documented as of this encounter (statuses as of 07/14/2023) Active Problems Problem Noted Date Diagnosed Date Depression with anxiety 02/18/2022 Asthma 02/18/2022 Constipation 02/18/2022 Eczema 02/18/2022 Iron deficiency anemia 02/18/2022 Hemangioma 02/18/2022 Syncope 03/06/2016 Otitis media 07/24/2008 STREP SORE THROAT,RECURRENT 07/24/2008 documented as of this encounter (statuses as of 07/14/2023) Immunizations Name Administration Dates Next Due Covid-19 Ad26, Single Dose (Renetta/J&J) 021 Seasonal Influenza, Quadrivalent, No Preserve, I M 07/16/2016 documented as of this encounter Social History Tobacco Use Types Packs/Day Years Used Date Smoking Tobacco: Never Smokeless Tobacco: Never Alcohol Use Standard Drinks/Week Comments No 0 (1 standard drink = 0.6 oz pur e alcohol) Sex and Gender Information Value Date Recorded Sex Assigned at Female 12/28/2022 7:13 PM EDT Gender Identity Female 12/28/2022 7:13 PM EDT Sexual Orientation Bisexual 12/28/2022 7: 13 PM EDT Job Start Date Occupation Industry Not on file Not on file Not on file documented as of this encounter Miscellaneous Notes * Telephone Encounter - Krystyna Cifuentes LPN - 07/06/2023 3:59 PM EDT Another message left to get labs done * Telephone Encounter - Krystyna Cifuentes LPN - 04/14/2023 2:43 PM EDT Message left on pt mobile phone * Telephone Encounter - Tim Silva MD - 04/14/2023 12:37 PM EDT Need to get repeat labs first. Was ordered in January - please call patient to find out where she wantsto get the lab work done. Wont refill until repeat vit D is done * Telephone Encounter - Jodie Obando LPN - 04/14/2023 8:50 AM EDT Request received to refill Vit D 50,000 units once per week, does she still need? Need labs first? documented in this encounter Plan of Treatment [...] filedocumented as of this encounter Care Teams Histologist Relationship Specialty Start Date End Date Devika Mayer CRNP [address] [place] [address] PCP - General Nurse Practitioner 12/19/21 documented as of this encounter
--- OUTSIDE RECORDS SUMMARY | 2023-10-22 08:42 | External Medical Summary | Summary of Care ---
Author Name Unknown Organization [facility] Address [address] [place] [facility] [place] [address] Phone [phone] Care Team Providers Care Data Miner Name Role Phone LeylaElizabeth eduardokizzy [place]LL[place]ORTH Primary Care Provider Reason for Visit * Reason Onset Date Comments Medication Refill 06/18/2023 Encounter Details Date Type Department Care Team Description 06/18/2023 Telephone Rheumatology [facility] [address] [place] [address] Tim Silva MD [address] [place] [address] Medication Refill Allergies No known active allergiesdocumented as of [...] 12/25/2022 Active Vitamin D (Ergocalciferol) 1.25 MG (08301 UT) Oral Capsule (Drisdol) Take 1 Capsule [...] filedocumented as of this encounter Care Teams Data Miner Relationship Specialty Start Date End Date Devika Mayer CRNP [address] [place] [address] PCP - General Nurse Practitioner 12/19/21 documented as of this encounter
--- OUTSIDE RECORDS SUMMARY | 2023-10-22 08:42 | External Medical Summary | Summary of Care ---
Author Name Unknown Organization [facility] Address [address] [facility] [place] [address] Phone [phone] Care Team Providers Care Diversional Therapist'S Assistant Name Role Phone Leyla, Devika HOLL[place]TH Primary Care Provider Reason for Visit * Reason Comments eRx-Medication Refill Encounter Details Date Type Department Care Team (Late st Contact Info) Description 10/19/2023 Refill Rheumatology [place] [id number] [place] [address] Tim Pollock MD [facility] [address] [place] [address] Other systemic lupus erythematosus with other organ involvement (HCC) Allergies No known active allergiesdocumented as of this encounter (statuses as of 10/20/2023) Medications Medication Sig Dispensed Refills Start Date [...] mouth in the morning. 0 04/14/2022 Active Venlafaxine HCl ER 150 MG Oral Capsule Extended Release 24 Hour (Effexor XR) 1 daily 0 12/25/2022 Active Hydroxychloroquine Sulfate 200 MG Oral Tablet (Plaquenil)Indicati ons:Other systemic lupus erythematosus with other organ involvement (HCC) TAKE 1 TABLET BY MOUTH IN THE MORNING AND BEFORE BEDTIME 180 Tablet 3 10/20/2023 Active Hydroxychloroquine Sulfate 200 MG Oral Tablet (Plaquenil)Indicati ons:Other systemic lupus erythematosus with other organ involvement (HCC) Take 1 Tablet by mouth in the morning and 1 Tablet before bedtime. 180 Tablet 0 07/23/2023 4 Discontinued documented as of this encounter (statuses as of 10/20/2023) Active Problems Problem Noted Date Diagnosed Date Depression with anxiety 02/18/2022 Asthma 02/18/2022 Constipation 02/18/2022 Eczema 02/18/2022 Iron deficiency anemia 02/18/2022 Hemangioma 02/18/2022 Syncope 03/06/2016 Otitis media 07/24/2008 STREP SORE THROAT,RECURRENT 07/24/2008 documented as of this encounter (statuses as of 10/20/2023) Immunizations Name Administration Dates Next Due Covid-19 [...] encounter Miscellaneous Notes * Telephone Encounter - Anabel Ley [facility] - 10/20/2023 1:53 PM ESTSigned Prescriptions: Disp Refills Hydroxychloroquine Sulfate 200 MG Oral Tab*180 Ta*3 Sig: TAKE 1 TABLET BY MOUTH IN THE MORNING AND BEFORE BEDTIMEAuthorizing Provider: TIM POLLOCK User: ANABEL LEY * Telephone Encounter - Anabel Ley [facility] - 10/20/2023 1:52 PM EST Rheumatology: Refill Request(s) Per review of the refill parameters, Medication was refilled Anabel Ley [facility] Clinical Pharmacist Rheumatology Department 10/20/2023,1:52 PM * Telephone Encounter - Jasvir Lima - 10/19/2023 7:56 PM ESTPending Prescriptions: Disp Refills Hydroxychloroquine Sulfate 200 MG Oral Tab*180 Ta*0 Sig: TAKE 1 TABLET BY MOUTH IN THE MORNING AND BEFORE BEDTIME * Telephone Encounter - Jasvir Lima jeannine - 10/19/2023 7:54 PM EST Did you pend patient's preferred pharmacy and medication before forwarding?yes Pharmacy: [id number] [address] [facility] Pending Prescriptions: Disp Refills Hydroxychloroquine Sulfate 200 MG Oral Ta*180 Ta*0 Sig: TAKE 1 TABLET BY MOUTH IN THE MORNING AND BEFORE BEDTIME Last Visit: 10/16/2023 (in office), Visit date not found (telemedicine) Next Visit: 05/17/2024 If no future appointments scheduled, and last appointment is greater than a year ago, please schedule patient for a follow-up appointment Last date the medication was ordered: 03/20/2023 Is this request for a controlled substance?No Urine Drug Screen:No results found for this or any previous visit. Patient Phone Numbers Labs: Lab Results Component Value Date/Time CREAT 0.86 01/07/2023 12:00 AM CREAT 0.5 (L) 12/23/2010 01:55 PM POTASSIUM 4.0 12/23/2010 01:55 PM TSH 1.51 02/18/2022 04:41 PM TSH 3.77 12/23/2010 01:55 PM ALT 22 12/23/2010 01:55 PM documented in this encounter Plan of Treatment Upcoming Encounters Date Type Department Care Team (Late st Contact Info) Description 05/17/2024 3:40 PM EDT Office Visit Rheumatology [facility] [address] [place] [address] Tim Pollock MD [address] [place] [address] Health Maintenance Due Date Last Done Comments Pneumococcal Vaccine: Pediat rics (0 to 5 Years) and At-Risk Patients (6 to 64 Years) (1 - PCV) 2008 DTaP,Tdap,and Td Vaccines (6 - Tdap) 2013 03/31/2007, 09/13/2003, 2002, Additional history exists Depression Screening 2014 Yearly Wellness Visit 03/12/2016 03/12/2015 Gonorrhea / Chlamydia Screen 2017 HIV Screening 2017 Hepatitis C Screening 2020 COVID-19 Vaccine (2 - Jansse n risk series) 04/04/2021 03/07/2021 *SPIROMETRY ONCE FOR ASTHMA-ADULT 07/31/2022 Pap Smear 2023 Hepatitis B Completed 2002, 07/08, 2002 GARDASIL-HPV IMMUNIZATION SERIES Completed 02/26/2016, 05/25/2013, 03/18/2013 MENINGOCOCCAL (MENACTRA/MENVEO) Completed , 03/18/2013 Influenza Vaccine (FLU shot) Completed 05/25/2023, 07/16/2016 documented as of this encounter Medical Devices Not on filedocumented as of this encounter Visit Diagnoses Diagnosis Other systemic lupus erythematosus with other organ involvement (HCC) documented in this encounter Care Teams Diversional Therapist'S Assistant Relationship Specialty Start Date End Date Devika Mayer CRNP [address] [place] [facility] [address] PCP - General Nurse Practitioner 12/19/21 documented as of this encounter
--- OUTSIDE RECORDS SUMMARY | 2023-10-22 08:42 | External Medical Summary | Summary of Care ---
Author Name Unknown Organization [facility] Address [address] [facility] [place] [place] [address] Phone [phone] Care Team Providers Care Job Service Consultant Name Role Phone LeylaElizabeth eduardokizzy [place]LL[place]TH Primary Care Provider Reason for Visit * Reason Onset Date Comments Medication Refill 06/18/2023 Encounter Details Date Type Department Care Team Description 06/18/2023 Telephone Rheumatology [facility] [address] [place] [address] Tim Silva MD [address] [address] Medication Refill Allergies No known active allergiesdocumented as of this encounter (statuses as of 06/22/2023) Medications Medication Sig Dispensed Refills Start Date [...] 12/25/2022 Active Vitamin D (Ergocalciferol) 1.25 MG (52165 UT) Oral Capsule (Drisdol) Take 1 Capsule by mouth once a week. 15 Capsule 0 01/20/2023 3 Discontinue d(Medicatio n List Clean Up) documented as of this encounter (statuses as of 06/22/2023) Active Problems Problem Noted Date Depression with anxiety 02/18/2022 Asthma 02/18/2022 Constipation 02/18/2022 Eczema 02/18/2022 Iron deficiency anemia 02/18/2022 Hemangioma 02/18/2022 Syncope 03/06/2016 Otitis media 07/24/2008 STREP SORE THROAT,RECURRENT 07/24/2008 documented as of this encounter (statuses as of 06/22/2023) Immunizations Name Administration Dates Next Due Covid-19 [...] encounter Miscellaneous Notes * Telephone Encounter - Sandra Obando LPN - 06/22/2023 8:28 AM EDT Order mailed to pt * Telephone Encounter - Tim Silva MD - 06/19/2023 4:27 PM EDT Please mail vit D order to patient * Telephone Encounter - Tim Silva MD [...] filedocumented as of this encounter Care Teams Job Service Consultant Relationship Specialty Start Date End Date Devika Mayer, DARRICK [address] [place] [address] PCP - General Nurse Practitioner 12/19/21 documented as of this encounter
--- OUTSIDE RECORDS SUMMARY | 2023-10-22 08:42 | External Medical Summary | Summary of Care ---
Author Name Unknown Organization [facility] Address [address] [facility] [place] [address] Phone [phone] Care Team Providers Care Plunger Machine Operator Name Role Phone Leyla, Devika [place]LL[place]ORTH Primary Care Provider Reason for Visit * Reason Onset Date Comments Medication Refill 07/21/2023 Encounter Details Date Type Department Care Team (Late st Contact Info) Description 07/21/2023 Refill Rheumatology [place] [id number] [place] [address] Meenakshi Pollock MD [address] [place] [address] Other systemic lupus erythematosus with other organ involvement (HCC) Allergies No known active allergiesdocumented as of this encounter (statuses as of 09/15/2023) Medications Medication Sig Dispensed Refills Start Date [...] Tablet before bedtime. 180 Tablet 0 07/23/2023 Active Hydroxychloroquine Sulfate 200 MG Oral Tablet (Plaquenil)Indicatio ns:Other systemic lupus erythematosus with other organ involvement (HCC) Take by mouth 1 Tablet in the morning AND 1 Tablet before bedtime. 180 Tablet 4 07/02/2022 3 Discontinue d(Refill) documented as of this encounter (statuses as of 09/15/2023) Active Problems Problem Noted Date Diagnosed Date Depression with anxiety 02/18/2022 Asthma 02/18/2022 Constipation 02/18/2022 Eczema 02/18/2022 Iron deficiency anemia 02/18/2022 Hemangioma 02/18/2022 Syncope 03/06/2016 Otitis media 07/24/2008 STREP SORE THROAT,RECURRENT 07/24/2008 documented as of this encounter (statuses as of 09/15/2023) Immunizations Name Administration Dates Next Due Covid-19 [...] encounter Miscellaneous Notes * Telephone Encounter - Rae Melvin OSA - 09/15/2023 9:14 AM EST Pt scheduled for 2-9 w/ Shira * Telephone Encounter - Krystyna Cifuentes LPN - 09/14/2023 9:42 AM EST Message left on pt phone to schedule apt. * Telephone Encounter - Tnaia Sewell OSA - 08/11/2023 12:51 PM EST Former pt of Anabel Mathew PA-C: Last appt: 12.31.2022 Return in about 6 months (around 07/02/2023) Sent MyG to pt for next avail and fast pass if needed Pt on recall * Telephone Encounter - Rohini Rose RPh - 07/23/2023 2:30 PM ESTSigned Prescriptions: Disp Refills Hydroxychloroquine Sulfate 200 MG Oral Tab*180 Ta*0 Sig: Take 1 Tablet by mouth in the morning and 1 Tablet before bedtime. Authorizing Provider: MEENAKSHI POLLOCK Ordering User: ROHINI ROSE * Telephone Encounter - Rohini Rose RPh - 07/23/2023 2:24 PM EST Rheumatology: Refill Request(s) Per review of the refill parameters, Medication was given as a 3-month supply d/t Appt overdue- routed to rheum scheduling pool Rohini Rose RPh [facility] Clinical Pharmacist Rheumatology Department 07/23/2023,2:30 PM documented in this encounter Plan of Treatment Upcoming Encounters Date Type Department Care Team (Late st Contact Info) Description 10/16/2023 3:40 PM EST Office Visit Rheumatology [place] [id number] [place] [address] Meenakshi Pollock MD [address] [place] [address] Health Maintenance Due Date Last Done Comments [...] Completed 02/26/2016, 05/25/2013, 03/18/2013 MENINGOCOCCAL (MENACTRA/MENVEO) Completed 8, 03/18/2013 Influenza Vaccine (FLU shot) Completed 05/25/2023, 07/16/2016 documented as of this encounter Medical Devices Not on filedocumented as of this encounter Visit Diagnoses Diagnosis Other systemic lupus erythematosus with other organ involvement (HCC) documented in this encounter Care Teams Plunger Machine Operator Relationship Specialty Start Date End Date Devika Mayer CRNP [address] [place] [address] PCP - General Nurse Practitioner 12/19/21 documented as of this encounter
--- OUTSIDE RECORDS SUMMARY | 2023-10-22 08:42 | External Medical Summary | Summary of Care ---
Author Name Unknown Organization [facility] Address [address] [facility] [place] [address] Phone [phone] Care Team Providers Care Sales Lead Generator Name Role Phone LeylaDevika Primary Care Provider Reason for Visit * Reason Onset Date Comments Medication Refill 07/21/2023 Encounter Details Date Type Department Care Team (Late st Contact Info) Description 07/21/2023 Refill Rheumatology [facility] [address] [place] [address] Tim Pollock MD [facility] [employer] [place] [address] Other systemic lupus erythematosus with other organ involvement (HCC) Allergies No known active allergiesdocumented as of this encounter (statuses as of 09/14/2023) Medications Medication Sig Dispensed Refills Start Date [...] as of this encounter (statuses as of 09/14/2023) Active Problems Problem Noted Date Diagnosed Date Depression with anxiety 02/18/2022 Asthma 02/18/2022 Constipation 02/18/2022 Eczema 02/18/2022 Iron deficiency anemia 02/18/2022 Hemangioma 02/18/2022 Syncope 03/06/2016 Otitis media 07/24/2008 STREP SORE THROAT,RECURRENT 07/24/2008 documented as of this encounter (statuses as of 09/14/2023) Immunizations Name Administration Dates Next Due Covid-19 [...] to schedule apt. * Telephone Encounter - Tania Sewell OSA - 08/11/2023 12:51 PM EST Former pt of Anabel Mathew PA-C: Last appt: 12.31.2022 Return in about 6 months (around 07/02/2023) Sent MyG to pt for next avail and fast pass if needed Pt on recall * Telephone Encounter - Olga Rose RPh - 07/23/2023 2:30 PM ESTSigned Prescriptions: Disp Refills Hydroxychloroquine Sulfate 200 MG Oral Tab*180 Ta*0 Sig: Take 1 Tablet by mouth in the morning and 1 Tablet before bedtime. Authorizing Provider: TIM POLLOCK Ordering User: OLGA ROSE * Telephone Encounter - Olga Rose RPh - 07/23/2023 2:24 PM EST Rheumatology: Refill Request(s) Per review of the refill parameters, Medication was given as a 3-month supply d/t Appt overdue- routed to rheum scheduling pool Olga Rose RPh [facility] Clinical Pharmacist Rheumatology Department 07/23/2023,2:30 [...] (HCC) documented in this encounter Care Teams Sales Lead Generator Relationship Specialty Start Date End Date Devika Mayer CRNP [address] [facility] [place] [address] PCP - General Nurse Practitioner 12/19/21 documented as of this encounter
--- OUTSIDE RECORDS SUMMARY | 2023-10-22 08:42 | External Medical Summary | Summary of Care ---
Author Name Unknown Organization [facility] Address [address] [facility] [place] [address] Phone [phone] Care Team Providers Care Professor Of Vegetable Science Name Role Phone LeylaElizabeth eduardokizzy [place] Primary Care Provider Reason for Visit * Reason Onset Date Comments Medication Refill 06/18/2023 Encounter Details Date Type Department Care Team Description 06/18/2023 Telephone Rheumatology [facility] [address] [place] [address] Tim Silva MD [address] [place] [address] Medication Refill Allergies No known active allergiesdocumented [...] 12/25/2022 Active Vitamin D (Ergocalciferol) 1.25 MG (00830 UT) Oral Capsule (Drisdol) Take 1 Capsule [...] filedocumented as of this encounter Care Teams Professor Of Vegetable Science Relationship Specialty Start Date End Date Devika Mayer CRNP [address] [place] [address] PCP - General Nurse Practitioner 12/19/21 documented as of this encounter
--- OUTSIDE RECORDS SUMMARY | 2023-10-22 08:42 | External Medical Summary | Summary of Care ---
Author Name Unknown Organization [facility] Address [address] [place] [facility] [place] [place] [address] Phone [phone] Care Team Providers Care Sap Sd Analyst Name Role Phone LeylaElizabeth eduardokizzy [place] Primary Care Provider Reason for Visit * Reason Onset Date Comments Medication Refill 06/18/2023 Encounter Details Date Type Department Care Team Description 06/18/2023 Telephone Rheumatology [facility] [address] [place] [address] Tim Silva MD [address] [place] [address] Medication Refill Allergies No known active allergiesdocumented [...] 12/25/2022 Active Vitamin D (Ergocalciferol) 1.25 MG (76983 UT) Oral Capsule (Drisdol) Take 1 Capsule [...] filedocumented as of this encounter Care Teams Sap Sd Analyst Relationship Specialty Start Date End Date Devika Mayer CRNP [address] [place] [facility] [address] PCP - General Nurse Practitioner 12/19/21 documented as of this encounter
--- OUTSIDE RECORDS SUMMARY | 2023-10-22 08:42 | External Medical Summary | Summary of Care ---
Author Name Unknown Organization [facility] Address [address] [facility] [place] [address] Phone [phone] Care Team Providers Care Cutter Out Name Role Phone LeylaElizabeth eduardokizzy [place] Primary Care Provider Reason for Visit * Reason Onset Date Comments Medication Refill 06/18/2023 Encounter Details Date Type Department Care Team Description 06/18/2023 Telephone Rheumatology [facility] [address] [place] [address] Tim Silva MD [address] [place] [address] Medication Refill Allergies No known active allergiesdocumented [...] 12/25/2022 Active Vitamin D (Ergocalciferol) 1.25 MG (78849 UT) Oral Capsule (Drisdol) Take 1 Capsule [...] Miscellaneous Notes * Telephone Encounter - Tim Sliva MD - 06/19/2023 4:27 PM EDT Please [...] filedocumented as of this encounter Care Teams Cutter Out Relationship Specialty Start Date End Date Devika Mayer CRNP [address] [place] [address] PCP - General Nurse Practitioner 12/19/21 documented as of this encounter
--- OUTSIDE RECORDS SUMMARY | 2023-10-22 08:42 | External Medical Summary | Summary of Care ---
Author Name Unknown Organization [facility] Address [address] [facility] [place] [address] Phone [phone] Care Team Providers Care Weapons Officer Name Role Phone Leyla, Devika [place] Primary Care Provider Reason for Visit * Reason Comments Rheum Follow Up Recheck Lupus Encounter Details Date Type Department Care Team (Latest Contact Info) Description 10/16/2023 3:40 PM EST Office Visit Rheumatology [facility] [address] [place] [address] Tim Silva MD [address] [place] [address] Other systemic lupus erythematosus with other organ involvement (HCC)*; Vitamin D deficiency Allergies No known active allergiesdocumented as of this encounter (statuses as of 10/16/2023) Medications Medication Sig Dispensed Refills Start Date [...] Oral Tablet (LaMICtal) 1 Tablet. 0 01/09/2022 Ac tive Vitamin D3 50 MCG (2000 UT) Oral Tablet Take 1 Tablet by mouth in the morning. 0 04/14/2022 Active Vitamin B-12 100 MCG Oral Tablet (vitamin B-12) Take 1 Tablet by mouth in the morning. 0 04/14/2022 Active Venlafaxine HCl ER 150 MG Oral Capsule Extended Release 24 Hour (Effexor XR) 1 daily 0 12/25/2022 Active Hydroxychloroquine Sulfate 200 MG Oral Tablet (Plaquenil)Indications :Other systemic lupus erythematosus with other organ involvement (HCC) Take 1 Tablet by mouth in the morning and 1 Tablet before bedtime. 180 Tablet 0 07/23/2023 Active documented as of this encounter (statuses as of 10/16/2023) Active Problems Problem Noted Date Diagnosed Date Depression with anxiety 02/18/2022 Asthma 02/18/2022 Constipation 02/18/2022 Eczema 02/18/2022 Iron deficiency anemia 02/18/2022 Hemangioma 02/18/2022 Syncope 03/06/2016 Otitis media 07/24/2008 STREP SORE THROAT,RECURRENT 07/24/2008 documented as of this encounter (statuses as of 10/16/2023) Immunizations Name Administration Dates Next Due Covid-19 Ad26, Single Dose (Renetta/J&J) 021 Seasonal Influenza, Quadrivalent, No Preserve, I M 07/16/2016 documented as of this encounter Social History Tobacco Use Types Packs/Day Years Used Date Smoking Tobacco: Never Smokeless Tobacco: Never Tobacco Cessation:Counseling Given: Not Answered Alcohol Use Standard Drinks/Week Comments No 0 [...] on file documented as of this encounter Last Filed Vital Signs Vital Sign Reading Time Taken Comments Blood Pressure - - Pulse - - Temperature 36.8 C (98.2 F) 10/16/2023 3:36 PM ES T Respiratory Rate - - Oxygen Saturation - - Inhaled Oxygen Concentration - - Weight 68 kg (150 lb) 10/16/2023 3:36 PM EST Height - - Body Mass Index - - documented in this encounter Progress Notes * Tim Silva MD - 10/16/2023 3:39 PM EST Subjective: Patient seen today for further follow up evaluation of SLE, vit d def. Since the last visit she hasremained on plaquenil. She needs FMLA forms filled out as well. She did have a low vitamin-D at 8 in his taking vitamin-D 1000 units daily. Being on supplementation really is not helped her fatigue. She admits to having depression as well that likely Effexor fatigue. She states was flare-ups she isgot to the hospital been told that she is in septic shock before but has not had a source of infection. Her flare-ups can be abdominal pain and fevers. She does have chronic joint pains as well.. Denies any photosensitive rashes. No hematuria. She reports sometimes getting a rash around her lips. Musculoskeletal ROS: . Abnormal: joint pain . Pain scale (0-10): 6 Other ROS: . Constitutional: normal . Head normal . Eyes: normal . Ears, nose, throat, mouth: normal . Cardiovascular: normal . Respiratory: normal . Gastrointestinal: See above . Genitourinary: normal . Skin: rash All other ROS reviewed and negative Social History: Social History Tobacco Use Smoking status: Never Smokeless tobacco: Never Substance Use Topics Alcohol use: No Vaping/E-Cigarette Use Vaping/E-Cigarette Substances Vaping/E-Cigarette Devices Current Outpatient Medications Medication Sig Dispense Refill MIRALAX PO POWD 2 tsp daily Venlafaxine HCl ER 37.5 MG Oral Capsule Extended Release 24 Hour (Effexor XR) 5 Capsules. Daily QUEtiapine Fumarate 200 MG Oral Tablet (SEROquel) 1 Tablet. At bedtime Topiramate 25 MG Oral Tablet (topAMAX) Take 2 Tablets by mouth in the morning. Rizatriptan Benzoate 10 MG Oral Tablet TAKE 1 TABLET NEEDED FOR MIGRAINE, MAY REPEAT ONCE IN 2 HOURS Riboflavin 400 MG Oral Tablet Take 1 Tablet by mouth in the morning. Ondansetron 4 MG Oral Tablet Disintegrating (Zofran) DISSOLVE 1 TABLET IN THE MOUTH EVERY 8 HOURS NEEDED FOR NAUSEA lamoTRIgine 200 MG Oral Tablet (LaMICtal) 1 Tablet. Vitamin D3 50 MCG (2000 UT) Oral Tablet Take 1 Tablet by mouth in the morning. Vitamin B-12 100 MCG Oral Tablet (vitamin B-12) Take 1 Tablet by mouth in the morning. Venlafaxine HCl ER 150 MG Oral Capsule Extended Release 24 Hour (Effexor XR) 1 daily Hydroxychloroquine Sulfate 200 MG Oral Tablet (Plaquenil) Take 1 Tablet by mouth in the morning and1 Tablet before bedtime. 180 Tablet 0 No current facility-administered medications for this visit. Physical Exam: Temp 36.8 C (98.2 F) (Infrared ) | Wt 68 kg (150 lb) General: alert, healthy, no distress, and well nourished HENT: normocephalic, external ears normal, no mucosal erythema, no mucosal edema, moist mucosa, no oral ulcers Eye Exam: PERRL, EOMI, conjunctiva are pink and non-injected, sclera clear Neck: supple, no adenopathy, thyroid normal size, non-tender, without nodularity Lymph: no palpable lymphadenopathy Heart: regular rate & rhythm, no murmur, and no gallops Lungs: clear to auscultation , no rales, wheezes or rhonchi Abdomen: abdomen soft, non-tender, and normal bowel sounds Musculoskeletal Exam: Crepitus noted on exam to both knees No synovitis of the Assessment: (M32.19) Other systemic lupus erythematosus with other organ involvement (HCC) (primary encounter diagnosis) (E55.9) Vitamin D deficiency Currently she is doing relatively stable from a lupus standpoint. Will continue with Plaquenil. Update labs and urine studies. Will recheck vitamin-D level. Will fill out FMLA paperwork. Plan: 1. Will fill out FMLA paperwork 2. Lab work ordered and slips given to her 3. Continue current meds until labs are back 4. Return to clinic in 6 months \\ Tim Silva MD Department of Rheumatology documented in this encounter Nursing Notes * Krystyna Cifuentes LPN - 10/16/2023 3:34 PM EST Chief Complaint Patient presents with Rheum Follow Up Recheck Lupus documented in this encounter Plan of Treatment Upcoming Encounters Date Type Department Care Team (Late st Contact Info) Description 05/17/2024 3:40 PM EDT Office Visit Rheumatology [address] [place], [place] [address] Tim Silva MD [address] [place] [address] [place], [place] [address] Scheduled Orders Name Type Priority Associated Diagnoses Orde r Schedule 25-HYDROXY VITAMIN D Lab Routine Other systemic lupus erythematosus with other organ involvement (HCC) Vitamin D deficiency Ordered: 10/16/2023 COMPLEMENT C3 Lab Routine Other systemic lupus erythematosus with other organ involvement (HCC) Ordered: 10/16/2023 COMPLEMENT C4 Lab Routine Other systemic lupus erythematosus with other organ involvement (HCC) Ordered: 10/16/2023 URINALYSIS, REFLEX TO MICROSCOPIC Lab Routine Other systemic lupus erythematosus with other organ involvement (HCC) Ordered: 10/16/2023 PROTEIN/ CREATININE RATIO, URINE Lab Routine Other systemic lupus erythematosus with other organ involvement (HCC) Ordered: 10/16/2023 CBC WITH WBC DIFFERENTIAL Lab Routine Other systemic lupus erythematosus with other organ involvement (HCC) Ordered: 10/16/2023 COMPREHENSIVE METABOLIC PANEL Lab Routine Other systemic lupus erythematosus with other organ involvement (HCC) Ordered: 10/16/2023 DOUBLE STRANDED DNA (DSDNA) ANTIBODY, IFA Lab Routine Other systemic lupus erythematosus with other organ involvement (HCC) Ordered: 10/16/2023 Health Maintenance Due Date Last Done Comments [...] systemic lupus erythematosus with other organ involvement (HCC)- Primary Vitamin D deficiency Unspecified vitamin D deficiency documented in this encounter Care Teams Weapons Officer Relationship Specialty Start Date End Date Devika Mayer CRNP [address] [place] [facility] [place] [address] PCP - General Nurse Practitioner 12/19/21 documented as of this encounter"
[2023-10-22] MEDS: TOPIRAMATE 50 MG TAB PO SCH (09:36)
[2023-10-22] MEDS: HYDROXYCHLOROQUINE SULFATE 200 MG TAB PO SCH (09:36)
[2023-10-22] MEDS: POT PHOSPHATE MONOBASIC W/ SOD TAB PO SCH (09:37)
--- NOTE | 2023-10-22 10:00 | XRay Report ---
KUB HISTORY: vomiting COMPARISON: Chest and abdominal series 02/11/2019. FINDINGS: The bowel gas pattern is unremarkable. There are no dilated loops of small bowel to suggest an obstruction. No renal calculi. No ureteral calculi. No pneumoperitoneum or pneumatosis. IMPRESSION: Nonobstructive bowel gas pattern. ACT 112: Negative or not required by law. Electronically signed by: Venkat Mosquera M.D. 10/22/2023 9:59 AM
[2023-10-22 11:07] LABS: Creatinine Clr Calc Pharmacy 117.4 ml/min; Est GFR (African American) 145.6 ml/min; Est GFR (Non-African American) 125.7 ml/min; Magnesium 2.5 mg/dl (1.7-2.4); Phosphorus 2.3 mg/dl (2.5-4.9); Potassium 4.1 mmol/L (3.5-5.1)
[2023-10-22 11:12] VITALS: RESP 16; O2SAT 97
[2023-10-22] MEDS: VENLAFAXINE HCL XR 37.5 MG CAPXR PO SCH (15:12)
[2023-10-22] MEDS: VENLAFAXINE HCL XR 150 MG CAPXR PO SCH (15:12)
[2023-10-22] MEDS: lamoTRIgine 100 MG TAB PO SCH (15:12)
[2023-10-22] MEDS: QUEtiapine FUMARATE 200 MG TAB PO SCH (15:13)
[2023-10-22] MEDS: LORazepam 0.5 MG in SYRINGE 0.25 ML IV PRN (15:13)
--- NOTE | 2023-10-22 18:10 | Discharge Summary ---
Discharge Summary Date of Service October 22, 2023 Notes For Next Care Provider Medication Changes From Visit None Admission HPI Per Admitting Provider Jackelyn Knox is a 23yo female with history of Systemic Lupus erythematosus on Plaquenil therapy presenting from home with intractable nausea and vomiting as well as several episodes of watery diarrhea. Patient reports feeling well yesterday. She has no sick contacts or travel. She woke this morning with diffuse abdominal pain and nausea with multiple episodes of non-bloody emesis. She has vomited every few minutes throughout the day. She had several episodes of watery, non-bloody diarrhea as well. She has not been able to keep down food or drink. She reports that she has urinated several times today. She has some dizziness but no syncope. No chest pain, cough, SOB. No fever but has had some hot and cold flashes. No additional complaints at this time In the ER she was given multiple anti-emetic agents with minimal improvement. She had a repeat EKG which showed some QT prolongation ER Course: Zofran 4mg IV NSS x2L Toradol 10mg IV Reglan 10mg IV Benadryl 12.5mg IV Promethazine 12.5mg IV Principal Dx & Hospital Course #1 = Principal Diagnosis (1) Intractable nausea and vomitinyo female presenting with intractable nausea and vomiting as well as several episodes of watery diarrhea. No leukocytosis. Liver studies and Lipase are within normal limits. Patient was unable to tolerate PO intake despite multiple antiemetics. She had multiple electrolyte abnormalities and a prolonged QTc on admission, with a +AGMA Ddx unclear - patient has presented similarly in the past. Possibly cyclic vomiting, possibly secondary to her lupus, possibly viral gastroenteritis Stool PCR ordered but never collected because her stool continued to be mixed with urine She was treated with IVFs, lyte replacement KUB normal nausea/vomiting completely resolved by the evening after admission, tolerating solid foods, stable for discharge to home Repeat EKG to assess QT interval shows QTc now normalized. (2) Systemic lupus erythematosus: Chronic. Patient is on Hydroxychloroquine 200mg po BID -Continue home medications -Monitor QT interval-normalized (3) Depression: Chronic. -Continue home medications - Lamictal, Seroquel and Venlafaxine Plan Dispo-dc to home, discussed care with Dad at bedside Discharge Exam Constitutional WD/WN, vitals as above Respiratory normal respiratory effort, lungs clear to auscultation Cardiovascular RRR, no murmur, no edema Gastrointestinal (Abdomen) normal bowel sounds, soft, nontender, no hepatosplenomegaly Psychiatric A+Ox3, euthymic affect Updated Medication List Medication Instructions Recorded Confirmed Type venlafaxine 150 mg 150 mg PO HS 02/11/19 10/21/23 History capsule,extended release 24 hr lamotrigine 200 mg tablet 200 mg PO HS 03/04/21 10/21/23 History quetiapine 200 mg tablet 200 mg PO HS 07/17/21 10/21/23 History riboflavin (vitamin B2) 400 mg 400 mg PO DAILY #30 tabs 07/26/21 10/21/23 Rx tablet ferrous sulfate 325 mg (65 mg 325 mg PO DAILY 08/05/21 10/21/23 History iron) tablet (Iron (ferrous sulfate)) ondansetron 4 mg disintegrating 4 mg PO Q6H PRN nausea and 11/29/21 10/21/23 Rx tablet vomiting #10 tabs albuterol sulfate 90 mcg/actuation 2 puff inhalation Q4H PRN cough 12/05/21 Rx aerosol inhaler #8.5 grams topiramate 25 mg tablet 50 mg PO DAILY 02/08/22 10/21/23 History venlafaxine 37.5 mg 37.5 mg PO HS 02/08/22 10/21/23 History capsule,extended release 24 hr ibuprofen 800 mg tablet 800 mg PO Q8H PRN pain #20 tabs 02/10/22 10/21/23 Rx hydroxychloroquine 200 mg tablet 200 mg PO BID 09/07/23 10/21/23 History cholecalciferol (vitamin D3) 50 50 mcg PO DAILY 10/21/23 10/21/23 History mcg (2,000 unit) tablet Hospital Stay Data Consultations 10/21/23 23:22 ED Decision to Admit Stat Pending Results Patient Have Any Pending Studies at Discharge: No Discharge Instructions Given to Patient (Per Discharging Provider) Please try to drink plenty of fluids including those with electrolytes like gatorade. Total Time Total Time Spent Total Time Spent (In Minutes): 35 min Coding Level of Care Code 69301 INP/OBS DISCH >30 MIN Diagnoses Intractable nausea and vomiting R11.2 Systemic lupus erythematosus M32.9 Depression F32.9
[2023-10-22 19:49] VITALS: BP 125/82; PULSE 125; TEMP 98.6
--- NOTE | 2023-10-22 21:51 | Electrocardiogram Report ---
Test Reason : Blood Pressure : / mmHG Vent. Rate : 092 BPM Atrial Rate : 092 BPM P-R Int : 136 ms QRS Dur : 078 ms QT Int : 394 ms P-R-T Axes : 078 084 039 degrees QTc Int : 487 ms Normal sinus rhythm Possible Left atrial enlargement Prolonged QT Nonspecific T wave abnormality When compared with ECG of 09-FEB-2022 06:00, Vent. rate has increased by 44 bpm Confirmed by Antonio Sandhu ([id number]) on 10/22/2023 9:51:26 PM Referred By: REFERRED SELF Confirmed By:Antonio Sandhu
--- NOTE | 2023-10-22 21:53 | Electrocardiogram Report ---
Test Reason : Blood Pressure : / mmHG Vent. Rate : 092 BPM Atrial Rate : 092 BPM P-R Int : 152 ms QRS Dur : 082 ms QT Int : 408 ms P-R-T Axes : 064 084 045 degrees QTc Int : 504 ms Sinus rhythm with marked sinus arrhythmia Nonspecific T wave abnormality Prolonged QT Abnormal ECG When compared with ECG of 21-OCT-2023 18:29, No significant change was found Confirmed by Antonio Sandhu ([id number]) on 10/22/2023 9:53:00 PM Referred By: REFERRED SELF Confirmed By:Antonio Sandhu
--- NOTE | 2023-10-22 21:55 | Electrocardiogram Report ---
Test Reason : Blood Pressure : / mmHG Vent. Rate : 080 BPM Atrial Rate : 080 BPM P-R Int : 140 ms QRS Dur : 076 ms QT Int : 400 ms P-R-T Axes : 050 074 062 degrees QTc Int : 461 ms Normal sinus rhythm Normal ECG When compared with ECG of 21-OCT-2023 22:35, Nonspecific T wave abnormality no longer evident in Inferior leads Confirmed by Antonio Sandhu ([id number]) on 10/22/2023 9:55:24 PM Referred By: REFERRED SELF Confirmed By:Antonio Sandhu
== END 2023-10-22 20:06 | disposition home or self-care (01) ==
LOC: ED 18:08 → 2W 18:08 → SUATTDRO 23:23 → 2W 10-22 00:15
DX: R11.2 Nausea with vomiting, unspecified; M32.9 Systemic lupus erythematosus, unspecified; Z79.899 Other long term (current) drug therapy; Z91.030 Bee allergy status; E87.6 Hypokalemia; F32.A Depression, unspecified; E83.39 Other disorders of phosphorus metabolism; E83.42 Hypomagnesemia

== ENCOUNTER 2024-11-30 07:13 | Observation (INO) ==
--- NOTE | 2024-11-30 07:45 | Emergency Department Note ---
History of Present Illness General Chief complaint: Vomiting Stated complaint: lupus flare up Time Seen by Provider: 11/30/24 07:24 History of Present Illness Maximum Pain Intensity: 6 This is a 24-year-old female with history of lupus that presents to the emergency department via private vehicle accompanied by mother with complaints of "vomiting". The patient has history of lupus and often will experience flares which she notes is occurring again today. This began overnight. She denies any trauma or injury. No fevers. No preceding illness. She does note some generalized periumbilical abdominal discomfort which she notes occurs every time she experiences these flares. The patient denies any hemoptysis. She denies taking any antiemetics at home noting her persistent vomiting. Per review of the EMR the patient does have a history of QT prolongation. Patient and mother at bedside note that she does quite well with IV Compazine and that is their preference. Home Medications Medication Instructions Recorded Confirmed Type venlafaxine 150 mg 150 mg PO HS 02/11/19 11/30/24 History capsule,extended release 24 hr lamotrigine 200 mg tablet 200 mg PO HS 03/04/21 11/30/24 History quetiapine 200 mg tablet 200 mg PO HS 07/17/21 11/30/24 History ferrous sulfate 325 mg (65 mg 325 mg PO HS 08/05/21 11/30/24 History iron) tablet (Iron (ferrous sulfate)) ondansetron 4 mg disintegrating 4 mg PO Q6H PRN nausea and 11/29/21 11/30/24 Rx tablet vomiting #10 tabs albuterol sulfate 90 mcg/actuation 2 puff inhalation Q4H PRN cough 12/05/21 11/30/24 Rx aerosol inhaler #8.5 grams topiramate 25 mg tablet 50 mg PO HS 02/08/22 11/30/24 History venlafaxine 37.5 mg 37.5 mg PO HS 02/08/22 11/30/24 History capsule,extended release 24 hr ibuprofen 800 mg tablet 800 mg PO Q8H PRN pain #20 tabs 02/10/22 11/30/24 Rx hydroxychloroquine 200 mg tablet 200 mg PO BID 09/07/23 11/30/24 History cholecalciferol (vitamin D3) 50 50 mcg PO HS 10/21/23 11/30/24 History mcg (2,000 unit) tablet prochlorperazine maleate 5 mg 5 mg PO Q8H PRN nausea and 10/28/23 11/30/24 Rx tablet (Compazine) vomiting #10 tabs nystatin-triamcinolone 100,000 1 applic topical BID #30 grams 02/09/24 11/30/24 Rx unit/g-0.1 % topical cream riboflavin (vitamin B2) 400 mg 400 mg PO HS 11/30/24 11/30/24 History tablet Allergies Allergy/AdvReac Type Severity Reaction Status Date / Time bee venom protein (honey bee) Allergy Severe Anaphylaxis Verified 02/09/24 09:43 Past Med/Surg History Problem List Decreased sexual desire Dyspareunia in female Systemic lupus erythematosus Sepsis syndrome Cannabinoid hyperemesis syndrome (Acute) Not currently (Acute) Vomiting (Acute) Dehydration (Acute) Microscopic hematuria Constipation Iron deficiency anemia Memory loss Migraine without aura Headache Fever Behavioral tic Facial infection Depression Anxiety (Chronic) Asthma Vulvar itching Medical History Dental abscess Leukocytosis Metabolic acidosis Vomiting Abdominal pain Hemangioma Periapical abscess of tooth with fistula Eczema Constipation Surgical History No significant past surgical history Family History Mother Cancer Anxiety disorder Father Anxiety disorder Social History Smoking Status: Never smoker Second Hand Exposure: No; Do You Dip or Chew Tobacco: No; Hx Alcohol Use: Yes Alcohol type: wine Hx Substance Use: Yes Last Used Substance: Days (ago) Preferred Language: Hebrew Communication Ability: Effective Visual Impairment: No Limitations Environmental Technician Required: No Beliefs That Will Affect Care: None marital status: Single Current Living Situation: Family and Significant Other Feels Safe at Home: Yes Assistive Devices: None Review of Systems A total of 10 systems reviewed and were otherwise negative Physical Exam Vital Signs Vital Signs - 24 hr 11/30/24 07:17 11/30/24 08:09 11/30/24 08:09 Temperature 35.3 C L Temperature Source Temporal Artery Scan Pulse Rate 110 H 91 H Pulse Rate [Apical] 81 Respiratory Rate 20 24 24 Respiratory Effort / Characteristics Non-Labored Spontaneous Respiratory Depth Normal Blood Pressure 94/60 L Blood Pressure [Left Arm] 112/76 Blood Pressure Mean 71 Blood Pressure Mean [Left Arm] 88 Blood Pressure Position Sitting Pulse Oximetry 98 99 99 Oxygen Delivery Method Room Air Room Air Room Air Sepsis Recent Fever Within 48 Hours No Sepsis New/Unexplained Change in Mental Status No Sepsis Action Taken by Nursing No Action Required 11/30/24 08:11 11/30/24 09:08 11/30/24 10:06 Temperature 36.4 C L Temperature Source Oral Pulse Rate 85 Pulse Rate [Apical] 88 Respiratory Rate 17 Respiratory Effort / Characteristics Respiratory Depth Blood Pressure Blood Pressure [Left Arm] 113/68 Blood Pressure Mean Blood Pressure Mean [Left Arm] 83 Blood Pressure Position Pulse Oximetry 100 Oxygen Delivery Method Room Air Sepsis Recent Fever Within 48 Hours Sepsis New/Unexplained Change in Mental Status Sepsis Action Taken by Nursing VITAL SIGNS - Vital signs and nursing notes were reviewed. Borderline hypotensive, tachycardic, otherwise stable and afebrile. GENERAL -24-year-old female appearing her stated age who is in no acute distress. Actively holding an emesis bag and is experiencing dry heaving in the room with some sputum being expectorated communicates well with provider and answers questions appropriately. SKIN - Without rashes. No meningeal or petechial rash. HEAD - NC/AT. EYES - PERRL with EOMI bilaterally. Sclera anicteric. EARS - No deformities of external structures noted on gross examination bilaterally. NOSE - Midline and without cyanosis. No epistaxis or purulent drainage noted. MOUTH/OROPHARYNX - Without perioral cyanosis. NECK - Neck with FROM. No nuchal rigidity. LUNGS - Chest wall symmetric without accessory muscle use, intercostals retractions, or central cyanosis. Normal vesicular breath sounds CTA B/L. No wheezes, rales, or rhonchi appreciated. CARDIAC - RRR ABDOMEN - Abdominal contour normal without pulsations or visible masses. BS normoactive all four quadrants. No tenderness, palpable masses, hepatosplenomegaly, or ascites noted. No guarding or rigidity. EXTREMITIES - No clubbing or peripheral cyanosis. No pretibial edema present. +3/5 radial, posterior tibial, and dorsalis pedis pulses palpated throughout. +5/5 strength noted in UE/LE bilaterally. NEUROLOGIC - Cranial nerves II through XII grossly intact. PSYCH - alert, oriented and pleasant on exam. Course Administered Medications Discontinued Medications Diphenhydramine HCl (Diphenhydramine 50 Mg/Ml Vial) 25 mg IV NOW STA Stop: 11/30/24 07:50 Last Admin: 11/30/24 08:04 Dose: 25 mg Documented By: THU Sodium Chloride (Nss) 1,000 mls @ 999 mls/hr IV .Q1H1M ONE Stop: 11/30/24 08:40 Last Infusion: 11/30/24 09:15 Dose: Infused Documented By: Admin: 11/30/24 07:59 Dose: 999 mls/hr Documented By: THU Magnesium Sulfate/Dextrose (Magnesium Sulfate / D5w) 1 gm in 100 mls @ 100 mls/hr IV NOW STA Stop: 11/30/24 08:49 Last Infusion: 11/30/24 09:15 Dose: Infused Documented By: Admin: 11/30/24 08:04 Dose: 100 mls/hr Documented By: THU Prochlorperazine (Compazine) 1 mls @ 1 mls/min IV ONE ONE Stop: 11/30/24 07:50 Last Admin: 11/30/24 08:03 Dose: 1 mls/min Documented By: THU Potassium Chloride (K Eduardo / Wtr) 10 meq in 100 mls @ 100 mls/hr IV ONE ONE Stop: 11/30/24 09:54 Last Infusion: 11/30/24 10:46 Dose: Infused Documented By: Admin: 11/30/24 09:11 Dose: 100 mls/hr Documented By: THU Prochlorperazine (Compazine) 1 mls @ 1 mls/min IV ONE ONE Stop: 11/30/24 09:05 Last Admin: 11/30/24 09:09 Dose: 1 mls/min Documented By: THU Lorazepam (Lorazepam 2 Mg/1 Ml Vial) 0.5 mg IV NOW STA Stop: 11/30/24 09:59 Last Admin: 11/30/24 10:36 Dose: 0.5 mg Documented By: TRACEY Medical Decision Making Laboratory Data 11/30/24 07:57 11/30/24 07:57 Lab Results 11/30/24 Range/Units 07:57 WBC 11.06 H (4.8-10.8) K/ul RBC 4.89 (4.20-5.40) M/uL Hgb 14.7 (12.0-16.0) g/dl Hct 41.5 (37.0-47.0) % MCV 84.9 (80.0-100.0) fL MCH 30.1 (25.0-34.0) pg MCHC 35.4 (32.0-36.0) g/dL RDW Std Deviation 46.7 H (36.4-46.3) fL RDW Coeff of Indira 15.3 H (11.5-14.5) % Plt Count 237 (130-400) K/uL MPV 9.1 L (9.4-12.4) fL Immature Gran % (Auto) 0.5 % Neut % (Auto) 81.9 % Lymph % (Auto) 11.8 % [place] % (Auto) 5.4 % Eos % (Auto) 0.2 % Baso % (Auto) 0.2 % Neut # (Auto) 9.06 H (1.40-6.50) K/uL Lymph # (Auto) 1.31 (1.20-3.40) K/uL [place] # (Auto) 0.60 H (0.11-0.59) K/uL Eos # (Auto) 0.02 (0.00-0.50) K/uL Baso # (Auto) 0.02 (0.00-0.20) K/uL Immature Gran # (Auto) 0.05 (0.01-0.20) K/uL Sodium 138 (136-145) mmol/L Potassium 3.3 L (3.5-5.1) mmol/L Chloride 106 (98-107) mmol/L Carbon Dioxide 18 L (21-32) mmol/L Anion Gap 14 H (3-11) BUN 9 (6-23) mg/dl Creatinine 0.94 (0.6-1.2) mg/dl Est Cr Clr Drug Dosing 74.2 ml/min eGFR 87.98 BUN/Creatinine Ratio 9.6 L (10-20) Glucose 203 H (70-99(Fasting)) mg/dl Calcium 10.1 (8.6-10.3) mg/dl Magnesium 1.8 (1.7-2.4) mg/dl Total Bilirubin 0.8 (0.2-1.0) mg/dl AST 16 (13-39) U/L ALT 12 (7-52) U/L Alkaline Phosphatase 70 (34-104) U/L Total Protein 8.1 (6.0-8.3) gm/dl Albumin 5.0 (3.4-5.0) gm/dl Globulin 3.1 (2.5-4.0) gm/dl Albumin/Globulin Ratio 1.6 (0.9-2) Lipase 18 (11-82) U/L HCG, Qual Negative (Negative) MDM Narrative Patient was seen and evaluated as above in room B07. Review was performed of triage nursing notes and vital signs. I did review pertinent previous visits and patient history. After obtaining a thorough history and physical examination the above work up was performed. Patient presents to us today for nausea vomiting. She has benign abdominal examination. She is actively vomiting on my assessment. The patient does have a history of QT prolongation. I did obtain an EKG here today and per my interpretation reveals normal sinus rhythm at a rate of 68 bpm. QTc 497. QRS 84. No ST elevation on this rhythm tracing. However, at this point I do believe it is very important to provide antiemetics to alleviate the patient's vomiting. Patient mother notes that there are very few antiemetics that are actually helpful. Patient and mother at bedside both note that she has done quite well in the past with IV Compazine and Benadryl. They are requesting this medication. I did review how this can increase risk of QT prolongation and prolonged QT further. Despite this risk, it is felt that the benefit outweighs and we will proceed. Patient was reevaluated with minimal improvement. I will note that I chose a 5 mg dose secondary to the patient's QT prolongation with the thought that if the 5 mg dose is successful, can avoid need for full 10milligram dose. However unfortunately not long after the patient noted minimal improvement. She is inquiring about a second dose. 10 mg would be reasonable in total at this present time we will proceed within her 5 mg dose to equal 10 mg. However further doses should be spaced by several hours per current guidelines. Again, I reviewed the risk of QT prolongation however the patient with her continued vomiting may cause further harm therefore it is felt that the benefit of the medication outweighed risk. Cardiac monitoring will be continued. IV magnesium and IV potassium added for repletion. There is mild leukocytosis around 11. No emergent metabolic disturbance but will note mild anion gap 14, carbon dioxide 18 and potassium 3.3. Magnesium 1.8, low normal. Lipase normal. hCG negative. I did consider imaging however patient continues with benign abdominal exam Patient persists with symptoms. Admission considered. Case discussed with the hospitalist service, Dr. Vega. He recommended considering a CT scan of the abdomen/pelvis, CRP, urine drug screen. I did add these. I also added Ativan to help with the patient symptoms. Following hospitalist evaluation of the patient, he did recommend canceling the CT scan and patient symptoms will be trended and this will be reconsidered depending on patient course. Please refer to further documentation regarding her stay. Case was discussed with the attending physician. GCS: 15 In the evaluation and treatment of this patient the following differential diagnoses were entertained: Electrolyte abnormality, cyclic vomiting, lupus, acute abdomen, bowel obstruction, appendicitis, UTI, among others. Impression & Plan Intractable nausea and vomiting Discharge Plan Visit Data Chief Complaint: Vomiting Stated Complaint: lupus flare up ED Provider: Cameron French ED Midlevel Provider: Darryl Thomas Discharge Problem: Intractable nausea and vomiting Patient Disposition: Admitted As Inpatient Condition: Good Forms Stand Alone Forms: My [facility] Prescriptions Prescriptions: No Action ferrous sulfate [Iron (ferrous sulfate)] 325 mg (65 mg iron) tablet 325 mg PO HS albuterol sulfate 90 mcg/actuation HFA aerosol inhaler 2 puff inhalation Q4H PRN (Reason: cough) Qty: 8.5 0RF nystatin-triamcinolone 100,000-0.1 unit/g-% cream 1 applic topical BID Qty: 30 4RF venlafaxine 150 mg capsule,extended release 24hr 150 mg PO HS Rx Instructions: TOTAL DOSE 187.5 MG--TAKES WITH 37.5 MG CAP. lamotrigine 200 mg tablet 200 mg PO HS quetiapine 200 mg tablet 200 mg PO HS ondansetron 4 mg tablet,disintegrating 4 mg PO Q6H PRN (Reason: nausea and vomiting) Qty: 10 0RF venlafaxine 37.5 mg capsule,extended release 24hr 37.5 mg PO HS Rx Instructions: TOTAL DOSE 187.5 MG--TAKES WITH 150 MG CAP. topiramate 25 mg tablet 50 mg PO HS ibuprofen 800 mg tablet 800 mg PO Q8H PRN (Reason: pain) Qty: 20 0RF hydroxychloroquine 200 mg tablet 200 mg PO BID prochlorperazine maleate [Compazine] 5 mg tablet 5 mg PO Q8H PRN (Reason: nausea and vomiting) Qty: 10 0RF cholecalciferol (vitamin D3) 50 mcg (2,000 unit) Tablet 50 mcg PO HS riboflavin (vitamin B2) 400 mg tablet 400 mg PO HS Referrals Referrals: Theodore Tritsan MD [Primary Care Provider] -
[2024-11-30] MEDS: SODIUM CHLORIDE 0.9% 1,000 ML IV ONE (07:59)
[2024-11-30] MEDS: PROCHLORPERAZINE 1 ML IV ONE ×2 (08:03→09:09)
[2024-11-30] MEDS: MAGNESIUM SULFATE / D5W 1 GM/100 ML BAG IV STA (08:04)
[2024-11-30] MEDS: diphenhydrAMINE 50 MG/ML VIAL IV STA (08:04)
[2024-11-30 08:14] LABS: Basophils # (auto) 0.02 K/uL (0.00-0.20); Basophils % (auto) 0.2 %; Eosinophils # (auto) 0.02 K/uL (0.00-0.50); Eosinophils % (auto) 0.2 %; Hematocrit (blood only) 41.5 % (37.0-47.0); Hemoglobin 14.7 g/dl (12.0-16.0); Immature Granulocytes # (auto) 0.05 K/uL (0.01-0.20); Immature Granulocytes % (auto) 0.5 %; Lymphocytes # (auto) 1.31 K/uL (1.20-3.40); Lymphocytes % (auto) 11.8 %; Mean Corpuscular Hemoglobin 30.1 pg (25.0-34.0); Mean Corpuscular Hgb Conc 35.4 g/dL (32.0-36.0); Mean Corpuscular Volume 84.9 fL (80.0-100.0); Mean Platelet Volume 9.1 fL (9.4-12.4); Monocytes % (auto) 5.4 %; Neutrophils # (auto) 9.06 K/uL (1.40-6.50); Neutrophils % (auto) 81.9 %; Platelet Count 237 K/uL (130-400); RDW Coefficient of Variation 15.3 % (11.5-14.5); RDW Standard Deviation 46.7 fL (36.4-46.3); Red Blood Count 4.89 M/uL (4.20-5.40); White Blood Count 11.06 K/ul (4.8-10.8)
[2024-11-30 08:30] LABS: Pregnancy Test, Serum Negative (Negative)
[2024-11-30 08:51] LABS: Alanine Aminotransferase 12 U/L (7-52); Albumin Globulin Ratio 1.6 (0.9-2); Alkaline Phosphatase 70 U/L (34-104); Anion Gap 14 (3-11); Aspartate Aminotransferase 16 U/L (13-39); BUN Creatinine Ratio 9.6 (10-20); Bilirubin,Total 0.8 mg/dl (0.2-1.0); Blood Urea Nitrogen 9 mg/dl (6-23); Calcium 10.1 mg/dl (8.6-10.3); Carbon Dioxide 18 mmol/L (21-32); Chloride 106 mmol/L (98-107); Creatinine Clr Calc Pharmacy 74.2 ml/min; Globulin 3.1 gm/dl (2.5-4.0); Glucose 203 mg/dl (70-99(Fasting)); Lipase 18 U/L (11-82); Magnesium 1.8 mg/dl (1.7-2.4); Potassium 3.3 mmol/L (3.5-5.1); Sodium 138 mmol/L (136-145); Total Protein 8.1 gm/dl (6.0-8.3)
[2024-11-30] MEDS: POTASSIUM CHLORIDE / WTR 10 MEQ/100 ML PLCT IV ONE (09:11)
--- NOTE | 2024-11-30 10:00 | History & Physical Report ---
Date of Service November 30, 2024 Assessment & Plan (1) Vomiting: Plan: Chronic intractable nausea/vomiting - She reports her flare is exactly like previous flares in October and September. She has felt some chills but no fevers and notes she has got this and it feels exactly like past episodes. Due to left lower quadrant abdominal comfort, and leukocytosis with this episode did suggest CTA/P to rule out other infectious/inflammatory pathology. Reviewed this with patient and her mother at bedside. As her current symptoms feel identical to her past symptoms, her abdomen is soft and without rigidity and guarding and is with some generalized diffuse tenderness which again she feels is identical to previous episodes on shared decision making patient and family would like to defer CT on admission and follow with serial exams to minimize radiation at her relatively young age. If she is not clinically progressing within 24 hours, becomes febrile, has an uptrending leukocytosis, or has any deterioration then would like a CTA/P at that point. OK with KUB --> ordered Continue Compazine every 6 hours, Benadryl every 6 hours. Patient has not had response to Reglan or Zofran with any of her prior episode Lorazepam 0.5 mg every 6 hours if needed for breakthrough nausea if other antiemetics limited by QT, minimize use due to risk of dependency. This discussed with patient at bedside IVFM LR until p.o. intake improves Has a history of constipation. She reports she did not have a bowel movement for several weeks until she had a very large bowel movement several days ago. She reports she does not feel that she is currently distended/constipated however chronic constipation high stool burden may be contributing to her episodes. KUB is pending as noted. Add daily MiraLAX +/- docusate when able to tolerate p.o. Denies marijuana use/hyperemesis syndrome Does have history of migraine without aura. DDx includes abdominal migraine. She intermittently uses rizatriptan at home for migraines has not needed this in the last 6 months. For? Cyclic vomiting will trial triptan given her intractable symptoms. Unfortunately she is not able to take a pill due to her nausea and ODT/film formulation is not available on formulary. Discussed with patient and mother, okay substituting sumatriptan 6 mg subcu x 1. Given potential contribution to QT effect will order this in another 2 to 3 hours to space out from her doses of Compazine. Hold if QTc greater than 500. Magnesium 1.8. Optimize to goal of 2.0, additional IV magnesium x 1 ordered Potassium 3.3 and the setting of poor p.o. intake and vomiting. She is with a metabolic anion gap acidosis. LR maintenance continued. Additional 3K riders ordered, optimize to potassium goal of 4.0 QTc prolongation - EKG nsr QTc 497 on admit Follow on continuous telemetry Electrolyte optimization as noted Lupus On Plaquenil 20 mg twice daily Last dsDNA level 4 on 11/24/2023 Repeat CRP, ESR, dsDNA levels pending Has followed with nephrology, no evidence of lupus nephritis. Creatinine remains at baseline. Anxiety/depression: Continue lamotrigine, venlafaxine, Seroquel (75mg + 37.5mg = 112.5mg) DVT prophylaxis: Lovenox Disposition: Medical telemetry for continuous QT monitoring Diet: Clears, advance as tolerated CODE STATUS: Full code (2) Systemic lupus erythematosus: (3) Migraine without aura: History of Present Illness Primary Care Provider: Theodore Tristan MD 24-year-old female with a past medical history of lupus who presents for vomiting. Has had vomiting with prior lupus flares. She has a history of QT prolongation limiting home Zofran use. Also has a history of periumbilical tenderness with her flares. Seen at the ER with her mom. She feels this episode feels exactly like past episodes. Dry heaving early last night, tried to wait until 6am but vomiting and felt very poor. Zofran, reglan didn't work prevsiouly, compazine did seem to help. Last flares were new , and october. Lupus --> Plaquenil 400mg. Follows with Dr. Rubio [facility] [place]. dsDNA levels checked Hasn't noted any remitting factors other than compazine. Cannot keep down any PO No fevers No diarrhea. Hx constipation. LLQ TTP. Large BM a few days ago. Had a large BM, first in several weeks. She reports her flare does feel exactly like previous flares in October and September. She has felt some chills but no fevers and notes she has got this and it feels exactly like past episodes. Due to left lower quadrant abdominal comfort, and leukocytosis with this episode did suggest CTA/P to rule out other infectious/inflammatory pathology. Reviewed this with patient and her mother at bedside. As her current symptoms feel identical to her past symptoms, her abdom en is soft and without rigidity and guarding and is with some generalized diffuse tenderness which again she feels is identical to previous episodes on shared decision making patient and family would like to defer CT on admission and follow with serial exams to minimize radiation at her relatively young age. If she is not clinically progressing within 24 hours, becomes febrile, has an uptrending leukocytosis, or has any deterioration then would like a CTA/P at that point. Medical History: Reviewed Medications: Reviewed Surgical History: Reviewed Family history: Reviewed Allergies: Reviewed Social History: No tobacco/ETOH. Code Status: Full Code Allergies Allergy/AdvReac Type Severity Reaction Status Date / Time bee venom protein (honey bee) Allergy Severe Anaphylaxis Verified 02/09/24 09:43 Home Medications Medication Instructions Recorded Confirmed Type venlafaxine 150 mg 150 mg PO HS 02/11/19 11/30/24 History capsule,extended release 24 hr lamotrigine 200 mg tablet 200 mg PO HS 03/04/21 11/30/24 History quetiapine 200 mg tablet 200 mg PO HS 07/17/21 11/30/24 History ferrous sulfate 325 mg (65 mg 325 mg PO HS 08/05/21 11/30/24 History iron) tablet (Iron (ferrous sulfate)) ondansetron 4 mg disintegrating 4 mg PO Q6H PRN nausea and 11/29/21 11/30/24 Rx tablet vomiting #10 tabs albuterol sulfate 90 mcg/actuation 2 puff inhalation Q4H PRN cough 12/05/21 11/30/24 Rx aerosol inhaler #8.5 grams topiramate 25 mg tablet 50 mg PO HS 02/08/22 11/30/24 History venlafaxine 37.5 mg 37.5 mg PO HS 02/08/22 11/30/24 History capsule,extended release 24 hr ibuprofen 800 mg tablet 800 mg PO Q8H PRN pain #20 tabs 02/10/22 11/30/24 Rx hydroxychloroquine 200 mg tablet 200 mg PO BID 09/07/23 11/30/24 History cholecalciferol (vitamin D3) 50 50 mcg PO HS 10/21/23 11/30/24 History mcg (2,000 unit) tablet prochlorperazine maleate 5 mg 5 mg PO Q8H PRN nausea and 10/28/23 11/30/24 Rx tablet (Compazine) vomiting #10 tabs nystatin-triamcinolone 100,000 1 applic topical BID #30 grams 02/09/24 11/30/24 Rx unit/g-0.1 % topical cream riboflavin (vitamin B2) 400 mg 400 mg PO HS 11/30/24 11/30/24 History tablet Past Med/Surg History Problem List Decreased sexual desire Dyspareunia in female Systemic lupus erythematosus Sepsis syndrome Cannabinoid hyperemesis syndrome (Acute) Not currently (Acute) Vomiting (Acute) Dehydration (Acute) Microscopic hematuria Constipation Iron deficiency anemia Memory loss Migraine without aura Headache Fever Behavioral tic Facial infection Depression Anxiety (Chronic) Asthma Vulvar itching Medical History Dental abscess Leukocytosis Metabolic acidosis Vomiting Abdominal pain Hemangioma Periapical abscess of tooth with fistula Eczema Constipation Surgical History No significant past surgical history Family History Mother Cancer Anxiety disorder Father Anxiety disorder Social History Smoking Status: Never smoker Second Hand Exposure: No; Do You Dip or Chew Tobacco: No; Hx Alcohol Use: Yes Alcohol type: wine Hx Substance Use: Yes Last Used Substance: Days (ago) Preferred Language: Thai Communication Ability: Effective Visual Impairment: No Limitations Internal Sales Engineer Required: No Beliefs That Will Affect Care: None marital status: Single Current Living Situation: Family and Significant Other Feels Safe at Home: Yes Assistive Devices: None Physical Exam Physical Exam: General: A&Ox3. NAD. Cooperative. Appears ill and fatigued but nontoxic. Thin HEENT: Atraumatic, normocephalic. Vision and hearing grossly intact. Mucous membranes are dry Pulm: CTAB A&P. -wheezes, -rales, -rhonchi. Symmetrical chest rise. No increased work of breathing. No respiratory distress. Cardiac: RRR, -mrg. Radial pulses intact and symmetrical. Abdominal: Diffuse mild tenderness to palpation but without rebound/rigidity/guarding. Tenderness is most prominent in the left lower quadrant and epigastrium Extremities: Warm, dry Results & Data Results & Data Vital Signs (Past 12 Hours) Vital Signs Temp Pulse Pulse Resp BP BP Pulse Ox 11/30/24 09:08 36.4 C L 11/30/24 08:11 85 11/30/24 08:09 91 H 24 99 11/30/24 08:09 81 24 112/76 99 11/30/24 07:17 35.3 C L 110 H 20 94/60 L 98 O2 Del Method 11/30/24 09:08 11/30/24 08:11 11/30/24 08:09 Room Air 11/30/24 08:09 Room Air 11/30/24 07:17 Room Air PG Care Time/CCT Total # of Minutes Spent Total Time Spent with Patient: Total time spent is greater than 50% in coordination of care (as documented) at patient's floor/unit and/or counseling patient: Coding Level of Care Code 54363 INT INP/OBS CARE 3/75MIN Diagnoses Vomiting R11.2 Nausea presence: with nausea Vomiting type: unspecified Systemic lupus erythematosus M32.9 Migraine without aura G43.009 (1) Vomiting Nausea presence: with nausea Vomiting type: unspecified Qualified Code(s): R11.2 - Nausea with vomiting, unspecified
[2024-11-30] MEDS: LORazepam 2 MG/1 ML VIAL IV STA ×2 (10:36→18:55)
--- NOTE | 2024-11-30 10:43 | Electrocardiogram Report ---
Test Reason : Blood Pressure : */* mmHG Vent. Rate : 68 BPM Atrial Rate : 68 BPM P-R Int : 138 ms QRS Dur : 84 ms QT Int : 468 ms P-R-T Axes : 67 85 52 degrees QTcB Int : 497 ms Normal sinus rhythm Prolonged QT Abnormal ECG When compared with ECG of 28-Oct-2023 00:19, No significant change was found Confirmed by Cameron Monreal ([id number]) on 11/30/2024 10:43:04 AM Referred By: REFERRED SELF Confirmed By: Cameron Monreal
[2024-11-30 10:56] LABS: C Reactive Protein < 0.50 mg/dl (0-0.5)
--- OUTSIDE RECORDS SUMMARY | 2024-11-30 11:39 | External Medical Summary | Summary of Care ---
Author Name Unknown Organization [facility] Address [address] [facility] [place] [address] Phone [phone] Care Team Providers Care Penology Professor Name Role Phone Theodore Tristan MD Primary Care Provid er Reason for Visit * Reason Comments eRx-Medication Refill Encounter Details Date Type Department Care Team (Late st Contact Info) Description 10/12/2024 Refill Rheumatology [facility] [address] [place] [id number] Meenakshi Pollock MD [address] [facility] [place] [address] Other systemic lupus erythematosus with other organ involvement (HCC) Allergies No known active allergiesdocumented as of this encounter (statuses as of 10/13/2024) Medications MIRALAX PO POWD 2 tsp daily 10/15/19 11 Active Venlafaxine HCl ER 37.5 MG Oral Capsule Extended Release 24 Hour (Effexor XR) 5 Capsules. Daily 01/31/20 22 Active QUEtiapine Fumarate 200 MG Oral Tablet (SEROquel) 1 Tablet. At bedtime 12/20/19 22 Active Topiramate 25 MG Oral Tablet (topAMAX) Take 2 Tablets by mouth in the morning. 01/01/20 22 Active Rizatriptan Benzoate 10 MG Oral Tablet TAKE 1 TABLET NEEDED FOR MIGRAINE, MAY REPEAT ONCE IN 2 HOURS 02/09/20 22 Active Riboflavin 400 MG Oral Tablet Take 1 Tablet by mouth in the morning. 01/03/20 22 Active Ondansetron 4 MG Oral Tablet Disintegrating (Zofran) DISSOLVE 1 TABLET IN THE MOUTH EVERY 8 HOURS NEEDED FOR NAUSEA 02/09/20 22 Active lamoTRIgine 200 MG Oral Tablet (LaMICtal) 1 Tablet. 01/10/20 22 Active Vitamin D3 50 MCG (2000 UT) Oral Tablet Take 1 Tablet by mouth in the morning. 04/14/20 22 Active Vitamin B-12 100 MCG Oral Tablet (vitamin B-12) Take 1 Tablet by mouth in the morning. 04/14/20 22 Active Venlafaxine HCl ER 150 MG Oral Capsule Extended Release 24 Hour (Effexor XR) 1 daily 12/26/19 23 Active Nystatin-Triamcin olone 356384-7.1 UNIT/GM-% External Cream (Mycolog) APPLY TOPICALLY TWICE A DAY 02/09/20 24 Active Hydroxychloroquin e Sulfate 200 MG Oral Tablet (Plaquenil)Indica tions:Other systemic lupus erythematosus with other organ involvement (HCC) Take 1 Tablet by mouth in the morning. 90 Tablet 4 10/13/19 25 Active Hydroxychloroquin e Sulfate 200 MG Oral Tablet (Plaquenil)Indica tions:Other systemic lupus erythematosus with other organ involvement (HCC) TAKE 1 TABLET BY MOUTH IN THE MORNING AND BEFORE BEDTIME 180 Tablet 3 10/20/19 24 025 Discontinued documented as of this encounter (statuses as of 10/13/2024) Active Problems Problem Noted Date Diagnosed Date Depression with anxiety 02/18/2022 Asthma 02/18/2022 Constipation 02/18/2022 Eczema 02/18/2022 Iron deficiency anemia 02/18/2022 Hemangioma 02/18/2022 Syncope 03/06/2016 Otitis media 07/24/2008 STREP SORE THROAT,RECURRENT 07/24/2008 documented as of this encounter (statuses as of 10/13/2024) Immunizations Name Administration Dates Next Due Covid-19 Ad26, Single Dose (Renetta/J&J) 021 Seasonal Influenza, Quadrivalent, No Preserve, I M 07/16/2016 documented as of this encounter Social History Tobacco Use Types Packs/Day Years Used Date Smoking Tobacco: Never Smokeless Tobacco: Never Alcohol Use Standard Drinks/Week Comments No 0 (1 standard drink = 0.6 oz pur e alcohol) Comments No Sex and Gender Information Value Date Recorded Sex Assigned at Female 12/28/2022 7:13 PM EDT Legal Sex Female 6:25 AM EST Gender Identity Female 12/28/2022 7:13 PM EDT Sexual Orientation Bisexual 12/28/2022 7: 13 PM EDT documented as of this encounter Miscellaneous Notes * Telephone Encounter - Meenakshi Pollock MD - 10/13/2024 7:57 AM ESTSigned Prescriptions: Disp Refills Hydroxychloroquine Sulfate 200 MG Oral Tab*90 Tab*4 Sig: Take 1 Tablet by mouth in the morning.Authorizing Provider: MEENAKSHI POLLOCK * Telephone Encounter - Meenakshi Pollock MD - 10/13/2024 7:57 AM EST Reduced to 200mg daily * Telephone Encounter - Olga Rose [facility] - 10/12/2024 10:30 AM ESTPending Prescriptions: Disp Refills Hydroxychloroquine Sulfate 200 MG Oral Tab*180 Ta*1 Sig: TAKE 1 TABLET BY MOUTH IN THE MORNING AND BEFORE BEDTIME * Telephone Encounter - Olga Rose [facility] - 10/12/2024 10:29 AM EST Rheumatology: Refill Request(s) Per review of the refill parameters, Medication was NOT refilled d/t following concern: Last visit note states "She has remained on Plaquenil but will need a decreased dose given weight loss." Please advise on dose Olga Rose RPh [facility] Clinical Pharmacist Rheumatology Department 10/12/2024,10:29 AM * Telephone Encounter - Jasvir Lima - 10/12/2024 4:23 AM ESTPending Prescriptions: Disp Refills Hydroxychloroquine Sulfate 200 MG Oral Tab*180 Ta*3 Sig: TAKE 1 TABLET BY MOUTH IN THE MORNING AND BEFORE BEDTIME * Telephone Encounter - Jasvir Lima - 10/12/2024 4:21 AM EST Did you pend patient's preferred pharmacy and medication before forwarding?yes Pharmacy: [id number] Pending Prescriptions: Disp Refills Hydroxychloroquine Sulfate 200 MG Oral Ta*180 Ta*3 Sig: TAKE 1 TABLET BY MOUTH IN THE MORNING AND BEFORE BEDTIME Last Visit: Visit date not found (in office), Visit date not found (telemedicine) Next Visit: Visit date not found If no future appointments scheduled, and last appointment is greater than a year ago, please schedule patient for a follow-up appointment Last date the medication was ordered: 10/20/2023 Is this request for a controlled substance?No Urine Drug Screen:No results found for this or any previous visit. Patient Phone Numbers Labs: Lab Results Component Value Date/Time CREAT 1.11/24/2023 12:00 AM CREAT 1.02 11/24/2023 12:00 AM CREAT 0.5 (L) 12/23/2010 01:55 PM POTASSIUM 3.9 11/24/2023 12:00 AM POTASSIUM 3.9 11/24/2023 12:00 AM POTASSIUM 4.0 12/23/2010 01:55 PM TSH 1.51 02/18/2022 04:41 PM TSH 3.77 12/23/2010 01:55 PM LDLCALC 70 11/24/2023 12:00 AM ALT 6 (A) 11/24/2023 12:00 AM ALT 22 12/23/2010 01:55 PM HGBA1C 4.6 11/24/2023 12:00 AM documented in this encounter Plan of Treatment Health Maintenance Due Date Last Done Comments DTap/Tdap Vaccines (6 - Tdap) 2013, 09/13/2003, 2002, Additional history exists Depression Monitoring 2014 Gonorrhea / Chlamydia Screen 2017 HIV Screening 2017 Hepatitis C Screening 2020 Pneumococcal Vaccine: Pediat rics (0 to 5 Years) and At-Risk Patients (6 to 18 Years and 19+ Years) (1 of 2 - PCV) 2021 COVID-19 Vaccine (2 - Jansse n risk series) 04/04/2021 03/07/2021 *SPIROMETRY ONCE FOR ASTHMA-ADULT 07/31/2022 Pap Smear 2023 Influenza Vaccine (FLU shot) (#1) 2024 023, 07/16/2016 Hepatitis B Vaccine Completed 2002, 2002, 2002 HPV (Gardasil) Vaccine Completed 6, 05/25/2013, 03/18/2013 MENINGOCOCCAL (MENACTRA/MENVEO) Completed 8, 03/18/2013 documented as of this encounter Medical Devices Not on filedocumented as of this encounter Visit Diagnoses Diagnosis Other systemic lupus erythematosus with other organ involvement (HCC) documented in this encounter Care Teams Penology Professor Relationship Specialty Start Date End Date Theodore Tristan MD [address] [place] [address] PCP - General Family Medicine 05/17/24 documented as of this encounter
--- NOTE | 2024-11-30 11:48 | XRay Report ---
KUB HISTORY: abd pain, hx constipation COMPARISON STUDY: 10/22/2023 FINDINGS: There is mild retained stool. No bowel obstruction seen. IMPRESSION: Mild retained stool. ACT 112: Negative or not required by law. The above report was generated using voice recognition software. It may contain grammatical, syntax o r spelling errors. Electronically signed by: Ramon Ochoa M.D. 11/30/2024 11:46 AM
[2024-11-30] MEDS: LACTATED RINGER'S 1,000 ML IV SCH (11:57)
[2024-11-30] MEDS: POTASSIUM CHLORIDE / WTR 10 MEQ/100 ML PLCT IV SCH (11:57)
[2024-11-30] MEDS: MAGNESIUM SULFATE / D5W 1 GM/100 ML BAG IV ONE (11:57)
[2024-11-30] MEDS: SUMAtriptan succinate 6 MG/0.5 ML VIAL SQ ONE (12:38)
[2024-11-30 15:38] LABS: Appearance Urine Turbid (Clear); Bacteria Urine Automated None Seen (None Seen); Bilirubin Urine Negative (Negative); Blood Urine 2+ (Negative); Cast Urine Automated 0-2 /lpf (0-2); Color Urine Yellow; Glucose Urine UA Negative (Negative); Ketones Urine Trace (Negative); Leukocyte Esterase Urine Negative (Negative); Nitrite Urine Negative (Negative); Protein Urine Negative (Negative); Specific Gravity Urine 1.018 (1.000-1.030); Urobilinogen Urine Negative (Negative); WBC Urine Automated 0-5 /hpf (0-5)
[2024-11-30 16:11] LABS: Amphetamines+Metham, Urine Neg (Neg); Barbiturates, Urine Neg (Neg); Benzodiazepine, Urine Neg (Neg); Cocaine, Urine Neg (Neg); Fentanyl, Urine Neg (Neg); MDMA (Ecstacy), Urine Neg (Neg); Marijuana, Urine Pos (Neg); Methadone, Urine Neg (Neg); Opiate, Urine Neg (Neg); Phencyclidine, Urine Neg (Neg)
[2024-11-30] MEDS: PROCHLORPERAZINE 5 MG/ML 2 ML VIAL ONE (16:12)
[2024-11-30] MEDS ORDERED: ACETAMINOPHEN 325 MG TAB PO PRN (17:47)
[2024-11-30] MEDS ORDERED: ALBUTEROL HFA 8 GM INHALER INH PRN (17:47)
[2024-11-30] MEDS ORDERED: POLYETHYLENE (MIRALAX) 17 GM PACK PO PRN (17:47)
[2024-11-30] MEDS: ENOXAPARIN INJ 40 MG/0.4 ML SYR SQ SCH (20:59)
[2024-11-30] MEDS: CHOLECALCIFEROL 25 MCG (1000 UNITS) TAB PO SCH (21:00)
[2024-11-30] MEDS: FERROUS SULFATE 325 MG TAB PO SCH (21:00)
[2024-11-30] MEDS: TOPIRAMATE 50 MG TAB PO SCH (21:00)
[2024-11-30] MEDS ORDERED: NON-FORMULARY MEDICATION (Riboflavin (Vitamin B2) 400 mg tablet) PO SCH (21:00)
[2024-11-30] MEDS ORDERED: NYSTATIN/TRIAMCIN CR 15 GM TUBE EXT SCH (21:00)
[2024-11-30] MEDS: QUEtiapine FUMARATE 200 MG TAB PO SCH (21:00)
[2024-11-30] MEDS: HYDROXYCHLOROQUINE SULFATE 200 MG TAB PO SCH (21:01)
[2024-11-30] MEDS: VENLAFAXINE HCL XR 37.5 MG CAPXR PO SCH (21:02)
[2024-11-30] MEDS: ONDANSETRON 4 MG OD TAB PO PRN (21:08)
[2024-11-30] MEDS: lamoTRIgine 100 MG TAB PO SCH (21:19)
[2024-12-01] MEDS: PROCHLORPERAZINE 5 MG in SYRINGE 4 ML IV PRN (05:34)
[2024-12-01 06:57] LABS: Basophils # (auto) 0.01 K/uL (0.00-0.20); Basophils % (auto) 0.1 %; Hematocrit (blood only) 37.7 % (37.0-47.0); Hemoglobin 13.5 g/dl (12.0-16.0); Immature Granulocytes # (auto) 0.04 K/uL (0.01-0.20); Immature Granulocytes % (auto) 0.4 %; Lymphocytes # (auto) 1.13 K/uL (1.20-3.40); Lymphocytes % (auto) 10.2 %; Mean Corpuscular Hemoglobin 30.5 pg (25.0-34.0); Mean Corpuscular Hgb Conc 35.8 g/dL (32.0-36.0); Mean Corpuscular Volume 85.1 fL (80.0-100.0); Monocytes # (auto) 0.59 K/uL (0.11-0.59); Monocytes % (auto) 5.3 %; Neutrophils # (auto) 9.36 K/uL (1.40-6.50); Platelet Count 206 K/uL (130-400); RDW Coefficient of Variation 15.2 % (11.5-14.5); Red Blood Count 4.43 M/uL (4.20-5.40); White Blood Count 11.13 K/ul (4.8-10.8)
[2024-12-01 07:27] LABS: BUN Creatinine Ratio 9.2 (10-20); Calcium 9.8 mg/dl (8.6-10.3); Creatinine Clr Calc Pharmacy 91.8 ml/min
--- NOTE | 2024-12-01 08:33 | Hospitalist Progress Note ---
Date of Service December 01, 2024 Assessment & Plan (1) Vomiting: (2) Systemic lupus erythematosus: (3) Migraine without aura: Plan This patient is a 24-year-old female with a history of SLE, cyclic vomiting syndrome, QT prolongation, anxiety/depression, chronic diarrhea, iron deficiency and B12 deficiency anemia, and migraines with aura, who presents to the hospital with intractable nausea/vomiting. Urine drug screen is positive for marijuana but she adamantly denies using this-cites exposure to her neighbors marijuana smoke as the reason for positive UDS. #Intractable nausea/vomiting-suspect cyclic vomiting syndrome from marijuana. This is very similar to previous episodes. Abdomen is soft and benign, KUB only with mild retained stool. Leukocytosis secondary to vomiting/stress response, afebrile. LFTs and lipase negative. Not much improvement with Imitrex to treat for migraine. Still having nausea/vomiting with Compazine and Zofran. QT is improved but still mildly prolonged at 477. Suspect tingling all over her body is from side effect of Compazine versus hyperventilation/anxiety -Add as needed IV Ativan -Continue Compazine and Zofran as needed -Give 1 g IV magnesium sulfate to optimize magnesium to 2.0 -Continue LR for 1 more liter of maintenance fluids -Continue clear liquids diet as tolerated -Denies marijuana use, encouraged her to get away from secondhand marijuana exposure #Prolonged QT- EKG nsr QTc 497 on admit, now improved to 477. She is on numerous QT prolonging medications Follow on continuous telemetry Electrolyte optimization-give 1 g IV magnesium today #SLE On Plaquenil 20 mg twice daily Last dsDNA level 4 on 11/24/2023. CRP here is normal, double-stranded DNA pending Has followed with nephrology, no evidence of lupus nephritis. Creatinine remains at baseline. -Continue Plaquenil #Anxiety/depression: No acute issues -Continue lamotrigine, venlafaxine, Seroquel (75mg + 37.5mg = 112.5mg) #Iron deficiency anemia-continue ferrous sulfate if can tolerate DVT prophylaxis: Lovenox Disposition: Continued stay medical telemetry for continuous QT monitoring Admission and Anticipated Discharge Date Admission Date: November 30, 2024 Subjective Patient continued to have significant nausea and vomiting this morning despite taking Compazine. She was also feeling tingly all over her body. She denied headache or lightheadedness, no abdominal pains. She is moving her bowels. I gave her Ativan and then she was feeling much improved after that. Patient is adamant that she does not smoke/vape/ingest marijuana and that her urine drug screen is most likely positive because her neighbors smoke a lot of marijuana and it floats through the ventilator into her apartment. Telemetry with normal sinus rhythm, rates in the 70s to 110s. Physical Exam Constitutional: + thin and + disheveled; no acute distre ss Respiratory: normal respiratory effort, lungs clear to auscultation Cardiovascular: RRR, no murmur, no edema Gastrointestinal (Abdomen): normal bowel sounds, soft, nontender, no hepatosplenomegaly Neurologic: PERRL, EOMI, accommodation nl, no face palsy, no dysarthria no focal motor deficits and not confused Psychiatric: A+Ox3, euthymic affect Results & Data Results & Data Vital Signs (Past 12 Hours) Vital Signs Temp Pulse Pulse Resp BP Pulse Ox O2 Del Method 12/01/24 07:54 37.1 C 78 18 117/82 99 Room Air 12/01/24 03:21 37 C 76 18 126/85 98 Room Air 11/30/24 22:03 37.2 C 74 16 109/68 98 Room Air 11/30/24 21:56 92 H Laboratory Results CBC, BMP, magnesium, urine drug screen reviewed ECG Additional Comments: ECG on 12/01/2024 at 8:27 AM with normal sinus rhythm, rate 79, no ischemic changes, prolonged QT at 477, improved from previous PG Care Time/CCT Total # of Minutes Spent Total Time Spent with Patient: Total time spent is greater than 50% in coordination of care (as documented) at patient's floor/unit and/or counseling patient: Coding Level of Care Code 43869 SUB INP/OBS CARE 3/50MIN Diagnoses Vomiting R11.2 Nausea presence: with nausea Vomiting type: unspecified Systemic lupus erythematosus M32.9 Migraine without aura G43.009 (1) Vomiting Nausea presence: with nausea Vomiting type: unspecified Qualified Code(s): R11.2 - Nausea with vomiting, unspecified
[2024-12-01] MEDS: LORazepam 2 MG/1 ML VIAL IV STA (08:37)
[2024-12-01 08:48] LABS: Magnesium 1.9 mg/dl (1.7-2.4)
[2024-12-01] MEDS: MAGNESIUM SULFATE / D5W 1 GM/100 ML BAG IV ONE (10:56)
[2024-12-01] MEDS ORDERED: LORazepam 2 MG/1 ML VIAL IV PRN (11:09)
--- NOTE | 2024-12-01 12:27 | Electrocardiogram Report ---
Test Reason : Blood Pressure : */* mmHG Vent. Rate : 79 BPM Atrial Rate : 79 BPM P-R Int : 130 ms QRS Dur : 78 ms QT Int : 416 ms P-R-T Axes : 74 86 77 degrees QTcB Int : 477 ms Normal sinus rhythm Nonspecific T wave abnormality Prolonged QT Abnormal ECG When compared with ECG of 30-Nov-2024 12:32, (unconfirmed) No significant change was found Confirmed by Cameron Monreal ([id number]) on 12/01/2024 12:27:18 PM Referred By: REFERRED SELF Confirmed By: Cameron Monreal
[2024-12-01] MEDS: LACTATED RINGER'S 1,000 ML IV SCH (13:41)
[2024-12-02 06:19] LABS: Basophils # (auto) 0.01 K/uL (0.00-0.20); Basophils % (auto) 0.2 %; Eosinophils # (auto) 0.06 K/uL (0.00-0.50); Eosinophils % (auto) 1.1 %; Hematocrit (blood only) 35.5 % (37.0-47.0); Hemoglobin 12.4 g/dl (12.0-16.0); Immature Granulocytes # (auto) 0.02 K/uL (0.01-0.20); Immature Granulocytes % (auto) 0.4 %; Lymphocytes # (auto) 1.83 K/uL (1.20-3.40); Lymphocytes % (auto) 35.1 %; Mean Corpuscular Hemoglobin 30.5 pg (25.0-34.0); Mean Corpuscular Hgb Conc 34.9 g/dL (32.0-36.0); Mean Corpuscular Volume 87.2 fL (80.0-100.0); Monocytes # (auto) 0.38 K/uL (0.11-0.59); Monocytes % (auto) 7.3 %; Neutrophils # (auto) 2.92 K/uL (1.40-6.50); Neutrophils % (auto) 55.9 %; Platelet Count 155 K/uL (130-400); RDW Coefficient of Variation 15.6 % (11.5-14.5); RDW Standard Deviation 49.1 fL (36.4-46.3); Red Blood Count 4.07 M/uL (4.20-5.40); White Blood Count 5.22 K/ul (4.8-10.8)
[2024-12-02 06:29] LABS: BUN Creatinine Ratio 11.6 (10-20); Calcium 9.2 mg/dl (8.6-10.3); Creatinine Clr Calc Pharmacy 80.5 ml/min; Magnesium 2.1 mg/dl (1.7-2.4); Potassium 3.6 mmol/L (3.5-5.1)
[2024-12-02 12:15] VITALS: BP 96/58; RESP 20; TEMP 98.1; O2SAT 99
[2024-12-02 14:11] LABS: Anti-dsDNA Recombinant 3 IU/mL; Complement C3 97 mg/dL (83-193)
--- NOTE | 2024-12-02 14:59 | Discharge Summary ---
Discharge Summary Date of Service December 02, 2024 Principal Dx & Hospital Course #1 = Principal Diagnosis (1) Vomiting: (2) Systemic lupus erythematosus: (3) Migraine without aura: (4) Weight loss: Plan This patient is a 24-year-old female with a history of SLE, cyclic vomiting syndrome, QT prolongation, anxiety/depression, chronic diarrhea, iron deficiency and B12 deficiency anemia, and migraines with aura, who presents to the hospital with intractable nausea/vomiting. Urine drug screen is positive for marijuana but she adamantly denies using this-cites exposure to her neighbors marijuana smoke as the reason for positive UDS. #Intractable nausea/vomiting-suspect cyclic vomiting syndrome from marijuana. This is very similar to previous episodes. Abdomen is soft and benign, KUB only with mild retained stool. Leukocytosis secondary to vomiting/stress response, afebrile. LFTs and lipase negative. Not much improvement with Imitrex to treat for migraine. Was still having nausea/vomiting after receiving Compazine and Zofran. QT is improved but still mildly prolonged at 477. Suspect tingling all over her body is from side effect of Compazine versus hyperventilation/anxiety and is now resolved. She received 1 dose of IV Ativan and had significant improvement by the next day. She was tolerating regular diet and stable for discharge to home She does note that the nausea vomiting seems to come on around the times of her periods every 3 months because she has a Nexplanon in place-May be catamenial abdominal migraines -Recommend as needed lorazepam use at home-gave number 7 tablets for home use -Compazine as needed at home -Denies marijuana use, encouraged her to get away from secondhand marijuana exposure #Weight loss-she has lost 21 kg of body weight in the last year but also was started on Topamax in 12/2023 for migraine prevention presumably. This likely is contributing plus the frequent nausea and vomiting. She reports she did have an EGD last year but has not had colonoscopy and frequently has issues with constipation and diarrhea. -Follow-up with PCP -Consider follow-up with GI for colonoscopy #Prolonged QT- EKG nsr QTc 497 on admit, now improved to 477. She is on numerous QT prolonging medications. She had no arrhythmias on telemetry Electrolyte optimization-treated with IV magnesium #SLE On Plaquenil 20 mg twice daily Last dsDNA level 4 on 11/24/2023. CRP here is normal, double-stranded DNA pending Has followed with nephrology, no evidence of lupus nephritis. Creatinine remains at baseline. -Continue Plaquenil #Anxiety/depression: No acute issues -Continue lamotrigine, venlafaxine, Seroquel (75mg + 37.5mg = 112.5mg) #Iron deficiency anemia-hemoglobin here is normal at 12.4 -Continue ferrous sulfate DVT prophylaxis: Lovenox Disposition: Stable for discharge to home Notes For Next Care Provider Consider colonoscopy for significant weight loss and significant GI issues Medication Changes From Visit Added lorazepam 1 mg p.o./SL every 8 hours as needed nausea/vomiting Admission HPI Per Admitting Provider 24-year-old female with a past medical history of lupus who presents for vomiting. Has had vomiting with prior lupus flares. She has a history of QT prolongation limiting home Zofran use. Also has a history of periumbilical tenderness with her flares. Seen at the ER with her mom. She feels this episode feels exactly like past epis odes. Dry heaving early last night, tried to wait until 6am but vomiting and felt very poor. Zofran, reglan didn't work prevsiouly, compazine did seem to help. Last flares were new , and october. Lupus --> Plaquenil 400mg. Follows with Dr. Rubio [facility]. dsDNA levels checked Hasn't noted any remitting factors other than compazine. Cannot keep down any PO No fevers No diarrhea. Hx constipation. LLQ TTP. Large BM a few days ago. Had a large BM, first in several weeks. She reports her flare does feel exactly like previous flares in October and September. She has felt some chills but no fevers and notes she has got this and it feels exactly like past episodes. Due to left lower quadrant abdominal comfort, and leukocytosis with this episode did suggest CTA/P to rule out other infectious/inflammatory pathology. Reviewed this with patient and her mother at bedside. As her current symptoms feel identical to her past symptoms, her abdomen is soft and without rigidity and guarding and is with some generalized diffuse tenderness which again she feels is identical to previous episodes on shared decision making patient and family would like to defer CT on admission and follow with serial exams to minimize radiation at her relatively young age. If she is not clinically progressing within 24 hours, becomes febrile, has an uptrending leukocytosis, or has any deterioration then would like a CTA/P at that point. Medical History: Reviewed Medications: Reviewed Surgical History: Reviewed Family history: Reviewed Allergies: Reviewed Social History: No tobacco/ETOH. Code Status: Full Code Discharge Exam Constitutional + thin; no acute distress Respiratory normal respiratory effort, lungs clear to auscultation Cardiovascular RRR, no murmur, no edema Gastrointestinal (Abdomen) normal bowel sounds, soft, nontender, no hepatosplenomegaly Neurologic no focal motor deficits and not confused Psychiatric A+Ox3, euthymic affect Discharge Plan Discharge Items Patient Disposition: Home - Self-Care Reason For Visit: Intractable nausea/vomiting Discharge Diagnosis: Intractable nausea/vomiting Condition on Discharge: Good Activity: Resume your previous activity Non-emergency contact: Primary Care Provider Call non-emergency contact if: you have any medication questions and your symptoms worsen Follow-up/Referrals: Theodore Tristan MD [Primary Care Provider] - (Please follow-up within 1 to 2 weeks.) Diet: Regular Addtl Attending Provider Instructions: You were admitted with nausea/vomiting. This may be related to your exposure to marijuana-please try to eliminate that exposure if possible. This could also be related to abdominal migraines around the time of your period. You will be given a prescription for lorazepam to help with this in the future as this seemed to resolve your symptoms. You can also try treating it as if it were a migraine with your migraine medications. You have lost a lot of weight in the last year and this could be from starting on Topamax. Because of your GI issues however, it may be prudent for you to see GI and have a colonoscopy. Pending Studies at Discharge: No Stand-Alone Forms: [facility] [email or web address], Smoking Cessation Medications and DC Order Prescriptions: New lorazepam 1 mg tablet 1 mg sublingual Q8H PRN (Reason: nausea and vomiting) Qty: 7 0RF Continued ferrous sulfate [Iron (ferrous sulfate)] 325 mg (65 mg iron) tablet 325 mg PO HS albuterol sulfate 90 mcg/actuation HFA aerosol inhaler 2 puff inhalation Q4H PRN (Reason: cough) Qty: 8.5 0RF nystatin-triamcinolone 100,000-0.1 unit/g-% cream 1 applic topical BID Qty: 30 4RF venlafaxine 150 mg capsule,extended release 24hr 150 mg PO HS Rx Instructions: TOTAL DOSE 187.5 MG--TAKES WITH 37.5 MG CAP. lamotrigine 200 mg tablet 200 mg PO HS quetiapine 200 mg tablet 200 mg PO HS ondansetron 4 mg tablet,disintegrating 4 mg PO Q6H PRN (Reason: nausea and vomiting) Qty: 10 0RF venlafaxine 37.5 mg capsule,extended release 24hr 37.5 mg PO HS Rx Instructions: TOTAL DOSE 187.5 MG--TAKES WITH 150 MG CAP. topiramate 25 mg tablet 50 mg PO HS ibuprofen 800 mg tablet 800 mg PO Q8H PRN (Reason: pain) Qty: 20 0RF hydroxychloroquine 200 mg tablet 200 mg PO BID prochlorperazine maleate [Compazine] 5 mg tablet 5 mg PO Q8H PRN (Reason: nausea and vomiting) Qty: 10 0RF cholecalciferol (vitamin D3) 50 mcg (2,000 unit) Tablet 50 mcg PO HS riboflavin (vitamin B2) 400 mg tablet 400 mg PO HS Discharge Orders: Discharge Order (Routine); Ordered 12/02/24 Ordered By: Laya Valdes Admission Data Admit Date/Time: 11/30/24 10:45 Attending Provider: Laya Valdes Admit Provider: Hansel Vega Primary Care Provider: Theodore Tristan Other Providers: Hansel Vega Hospital Stay Data Consultations 11/30/24 09:58 ED Decision to Admit Stat Pending Results Patient Have Any Pending Studies at Discharge: No Discharge Instructions Given to Patient (Per Discharging Provider) You were admitted with nausea/vomiting. This may be related to your exposure to marijuana-please try to eliminate that exposure if possible. This could also be related to abdominal migraines around the time of your period. You will be given a prescription for lorazepam to help with this in the future as this seemed to resolve your symptoms. You can also try treating it as if it were a migraine with your migraine medications. You have lost a lot of weight in the last year and this could be from starting on Topamax. Because of your GI issues however, it may be prudent for you to see GI and have a colonoscopy. Total Time Total Time Spent Total Time Spent (In Minutes): 35 minutes Total Time Includes: Examination of the Patient, Discharge Planning and Medication Reconciliation Coding Level of Care Code 18851 INP/OBS DISCH >30 MIN Diagnoses Vomiting R11.2 Nausea presence: with nausea Vomiting type: unspecified Systemic lupus erythematosus M32.9 Migraine without aura G43.009 Weight loss R63.4
[2024-12-02 15:30] VITALS: PULSE 94
[2024-12-03 12:57] LABS: Marijuana Quant, GCMS Urine 1252 ng/mL (<5)
== END 2024-12-02 16:11 | disposition home or self-care (01) | DRG 394 ==
LOC: ED 07:13 → INTOOBSV 10:45 → EDINP 10:45 → SUATTDRO 10:45 → 2N 19:35